=== PATIENT | male | born 1940 | race Caucasian/White ===

== ENCOUNTER → 2017-04-20 07:49 | Outpatient (CLI) | payer MEDICARE, OTHER, SELFPAY ==
[2017-04-20 08:52] LABS: AST(SGOT) 66 U/L (15-37); Alanine Aminotransfer ALT/SGPT 118 U/L (16-61); Albumin, Serum 3.7 g/dL (3.2-5.0); Alkaline Phosphatase 77 U/L (45-117); Bilirubin, Direct 0.22 mg/dL (0.00-0.30); Globulin 4.1 g/dL (2.2-4.2); Protein, Total 7.8 g/dL (6.4-8.2)
== END ==
PROVIDERS: Family Provider Family Medicine; PCP Family Medicine; Visit Provider Internal Medicine Cardiovascular Disease
DX: I25.10 Atherosclerotic heart disease of native coronary artery without angina pectoris (principal); I21.3 ST elevation (STEMI) myocardial infarction of unspecified site; I10 Essential (primary) hypertension; Z95.5 Presence of coronary angioplasty implant and graft
CPT/HCPCS: 36415; 80076

== ENCOUNTER → 2017-05-03 06:10 | Outpatient (CLI) | payer MEDICARE, OTHER, SELFPAY ==
--- NOTE | 2017-05-03 13:00 | STRESSREP ---
Stress Test Report Exercise myocardial perfusion stress test. 76-year-old man with a history of known coronary artery disease status post angioplasty and stenting in February 2017. Stress protocol: Sinus rhythm with a rate of 60 bpm. Right bundle branch block noted. Resting blood pressure is 144/92 mmHg. The patient exercised according to the regular [place] protocol total duration of 4 minutes and 6 seconds attaining 169 bpm which was 117% of maximum predicted heart rate the maximum workload was 5.9 metabolic equivalents. The patient maintained sinus rhythm with a right bundle branch block throughout the recording. At rest there were no ST or T-wave changes noticed ischemia and at peak exercise no ST or T-wave changes were noted suggest ischemia. Resting blood pressure was 144/92 with a peak blood pressure 172/90 mmHg. No clinical angina was noted the patient was noted to have audible wheezes at the end of exercise. Cardial perfusion protocol. 11.1 mCi of technetium 99m sestamibi was injected at rest. The patient then exercised according to the [place] protocol for 4 minutes and 6 seconds attaining 117% of the maximum predicted heart rate and a workload of 5.9 metabolic equivalents. At peak exercise 33.1 mCi of technetium 99m sestamibi was injected. Stress images were obtained. Stress and resting images were reconstructed and compared in the short axis vertical long and horizontal long axis. Gated images were also noted. Perfusion SPECT analysis. Review of the images on the stress demonstrate normal uptake of tracer noted in the septum anterior wall and lateral wall. There is a defect involving the basal to mid inferior wall as well as reduced perfusion involving the mid to inferior apical wall. On the resting images both these defects and reduction of perfusion persist suggesting a previous inferior myocardial infarction with no evidence of ischemia. A small amount of jarad-infarct ischemia can however not be completely excluded. Gated SPECT analysis. Gated ejection fraction is noted to be 61%. Conclusion: Exercise myocardial perfusion stress test with evidence of previous inferior infarct at a low workload No significant ischemia noted. Small amount of jarad-infarct ischemia cannot be completely excluded. Preserved ejection fraction.
== END ==
PROVIDERS: Family Provider Family Medicine; PCP Family Medicine; Visit Provider Internal Medicine Interventional Cardiology
DX: I25.10 Atherosclerotic heart disease of native coronary artery without angina pectoris (principal)
CPT/HCPCS: 78452; 93017; A9500; A4216

== ENCOUNTER → 2017-06-02 07:15 | Outpatient (CLI) | payer MEDICARE, OTHER, SELFPAY ==
[2017-06-02 08:49] LABS: AST(SGOT) 61 U/L (15-37); Alanine Aminotransfer ALT/SGPT 81 U/L (16-61); Albumin, Serum 3.6 g/dL (3.2-5.0); Alkaline Phosphatase 63 U/L (45-117); Bilirubin, Direct 0.31 mg/dL (0.00-0.30); Protein, Total 7.6 g/dL (6.4-8.2)
== END ==
PROVIDERS: Family Provider Family Medicine; PCP Family Medicine; Visit Provider Internal Medicine Cardiovascular Disease
DX: I10 Essential (primary) hypertension (principal); I25.5 Ischemic cardiomyopathy; I25.10 Atherosclerotic heart disease of native coronary artery without angina pectoris; D69.6 Thrombocytopenia, unspecified; I21.3 ST elevation (STEMI) myocardial infarction of unspecified site; I47.2 Ventricular tachycardia; Z95.5 Presence of coronary angioplasty implant and graft
CPT/HCPCS: 36415; 80076

== ENCOUNTER → 2017-08-23 14:15 | Outpatient (CLI) | payer MEDICARE, OTHER, SELFPAY ==
[2017-08-23 16:26] LABS: ALB/GLOB Ratio 0.9 RATIO (0.9-2.4); AST(SGOT) 35 U/L (15-37); Alanine Aminotransfer ALT/SGPT 53 U/L (16-61); Albumin, Serum 3.5 g/dL (3.2-5.0); Alkaline Phosphatase 77 U/L (45-117); Anion Gap 7 (5-15); BUN 17 mg/dL (7-18); BUN/Creat Ratio 12.7 RATIO (10-20); Calcium,Total 8.7 mg/dL (8.5-10.1); Chloride 104 mmol/L (98-107); Creatinine, Serum 1.34 mg/dL (0.70-1.30); EST Glomerular Filtration Rate 55 mL/min (>60); Est Glom Filt Rate - Afr Amer 67 mL/min (>60); Ferritin 60 ng/mL (26-388); GGTP 22 U/L (15-85); Globulin 3.7 g/dL (2.2-4.2); Glucose 119 mg/dL (74-106); Iron 71 ug/dL (65-175); Potassium 4.3 mmol/L (3.5-5.1); Protein, Total 7.2 g/dL (6.4-8.2); Sodium Level 142 mmol/L (136-145)
[2017-08-25 11:19] LABS: Hep C Antibodies >11.0 s/co ratio (0.0-0.9)
== END ==
PROVIDERS: Family Provider Family Medicine; PCP Family Medicine; Visit Provider Family Medicine
DX: I10 Essential (primary) hypertension (principal); R79.89 Other specified abnormal findings of blood chemistry
CPT/HCPCS: 36415; 80053; 82728; 82977; 83540; 86803

== ENCOUNTER → 2017-08-29 11:22 | Outpatient (CLI) | payer MEDICARE, OTHER, SELFPAY ==
[2017-08-31 11:02] LABS: HCV log 10 6.425 (.)
== END ==
PROVIDERS: Family Provider Family Medicine; PCP Family Medicine; Visit Provider Family Medicine
DX: B18.2 Chronic viral hepatitis C (principal)
CPT/HCPCS: 36415; 87522

== ENCOUNTER → 2017-09-05 06:08 | Outpatient (CLI) | payer MEDICARE, OTHER, SELFPAY ==
[2017-09-05 08:32] LABS: AST(SGOT) 35 U/L (15-37); Alanine Aminotransfer ALT/SGPT 46 U/L (16-61); Albumin, Serum 3.5 g/dL (3.2-5.0); Alkaline Phosphatase 75 U/L (45-117); Bilirubin, Direct 0.13 mg/dL (0.00-0.30); Globulin 3.8 g/dL (2.2-4.2); Protein, Total 7.3 g/dL (6.4-8.2)
[2017-09-10 03:06] LABS: Comment 2b (.)
[2017-09-11 09:05] LABS: AFP, Tumor Marker 3.8 ng/mL (0.0-8.3); HEPATITIS B SURFACE AG Negative (Negative); Hepatitis C Genotype 2b
== END ==
PROVIDERS: Family Provider Family Medicine; PCP Family Medicine; Visit Provider Internal Medicine Gastroenterology
DX: B18.2 Chronic viral hepatitis C (principal)
CPT/HCPCS: 36415; 80076; 82105; 87340; 87902

== ENCOUNTER → 2017-09-08 08:57 | Outpatient (CLI) | payer MEDICARE, OTHER, SELFPAY ==
--- NOTE | 2017-09-08 09:06 | US_ITS ---
STUDY: ABDOMINAL ULTRASOUND - RIGHT UPPER QUADRANT REASON FOR VISIT: Male, 76 years old. HEP C TECHNIQUE: Ultrasound evaluation of the right upper quadrant was performed with real-time and static porter-scale imaging. TECHNICAL QUALITY: Adequate. COMPARISON: None. FINDINGS: Liver: The liver measures 14.5 cm. There is a heterogeneous echogenicity of the liver. The bile ducts are within normal limits. There is hepatic color flow. The direction of portal flow is hepatopetal. There is no demonstrated mass lesion. Gallbladder: Normal distended gallbladder. The gallbladder wall measures 3 mm. There is a negative sonographic Farnsworth's sign. There is no pericholecystic fluid. There are no gallstones. Common Bile Duct (C.B.D.): The common bile duct measures 4.3 mm. Pancreas: Normal size of the head, body and tail of the pancreas. There is normal echogenicity of the pancreas. There is no demonstrated pancreatic mass or cyst. Right Kidney: Normal size of the right kidney. The right kidney measures 9.5x 4.6 x 5.3 cm. Normal renal cortex. The right cortex measures 1.2 cm. There is no demonstrated renal mass or cyst. There is no right hydronephrosis. US/Liver IMPRESSION: The liver appears heterogeneous and this is likely related to the patient's known hepatitis. Electronically Signed: Kory Soria MD at 21:15 EDT , Service support ,
== END ==
PROVIDERS: Family Provider Family Medicine; PCP Family Medicine; Visit Provider Internal Medicine Gastroenterology
DX: B19.20 Unspecified viral hepatitis C without hepatic coma (principal)
CPT/HCPCS: 76705

== ENCOUNTER → 2017-12-16 07:04 | Outpatient (CLI) | payer MEDICARE, OTHER, SELFPAY ==
[2017-12-16 09:14] LABS: AST(SGOT) 20 U/L (15-37); Alanine Aminotransfer ALT/SGPT 22 U/L (16-61); Albumin, Serum 3.6 g/dL (3.2-5.0); Alkaline Phosphatase 58 U/L (45-117); Bilirubin, Direct 0.16 mg/dL (0.00-0.30); Cholesterol 186 mg/dL (200); Globulin 3.9 g/dL (2.2-4.2); High Density Lipoprotein 60 mg/dL; Protein, Total 7.5 g/dL (6.4-8.2); Triglycerides 77 mg/dL; Very Low Density Lipoprotein 15 mg/dL (5-40)
== END ==
PROVIDERS: Family Provider Family Medicine; PCP Family Medicine; Referring Provider Nurse Practitioner Family; Visit Provider Nurse Practitioner Family
DX: E78.5 Hyperlipidemia, unspecified (principal); I25.10 Atherosclerotic heart disease of native coronary artery without angina pectoris
CPT/HCPCS: 36415; 80061; 80076

== ENCOUNTER → 2018-02-22 13:30 | Outpatient (CLI) | payer MEDICARE, OTHER, SELFPAY ==
[2018-02-22 14:32] LABS: Anion Gap 6 (5-15); BUN 15 mg/dL (7-18); BUN/Creat Ratio 11.7 RATIO (10-20); Calcium,Total 8.8 mg/dL (8.5-10.1); Chloride 104 mmol/L (98-107); Creatinine, Serum 1.28 mg/dL (0.70-1.30); EST Glomerular Filtration Rate 58 mL/min (>60); Est Glom Filt Rate - Afr Amer 70 mL/min (>60); Glucose 149 mg/dL (74-106); Potassium 4.4 mmol/L (3.5-5.1); Sodium Level 139 mmol/L (136-145)
== END ==
PROVIDERS: Family Provider Family Medicine; PCP Family Medicine; Referring Provider Family Medicine; Visit Provider Family Medicine
DX: I25.10 Atherosclerotic heart disease of native coronary artery without angina pectoris (principal)
CPT/HCPCS: 36415; 80048

== ENCOUNTER → 2018-05-04 07:04 | Outpatient (CLI) | payer MEDICARE, OTHER, SELFPAY ==
[2018-05-06 17:08] LABS: HCV Quant. RNA PCR HCV Not Detected IU/mL (.)
== END ==
PROVIDERS: Family Provider Family Medicine; PCP Family Medicine; Referring Provider Internal Medicine Gastroenterology; Visit Provider Internal Medicine Gastroenterology
DX: B19.20 Unspecified viral hepatitis C without hepatic coma (principal)
CPT/HCPCS: 36415; 87522

== ENCOUNTER → 2018-06-13 | Outpatient (CLI) | payer MEDICARE, OTHER, SELFPAY ==
[2018-06-11 09:38] VITALS: BMI 24.8
[2018-06-13 09:31] LABS: AST(SGOT) 27 U/L (15-37); Alanine Aminotransfer ALT/SGPT 30 U/L (16-61); Albumin, Serum 3.8 g/dL (3.2-5.0); Alkaline Phosphatase 74 U/L (45-117); Bilirubin, Direct 0.18 mg/dL (0.00-0.30); Cholesterol 98 mg/dL (200); Globulin 3.3 g/dL (2.2-4.2); High Density Lipoprotein 51 mg/dL; Protein, Total 7.1 g/dL (6.4-8.2); Triglycerides 88 mg/dL; Very Low Density Lipoprotein 18 mg/dL (5-40)
== END | disposition home or self-care (01) ==
LOC: LAB 07:06
PROVIDERS: Family Provider Family Medicine; PCP Family Medicine; Referring Provider Internal Medicine Cardiovascular Disease; Visit Provider Internal Medicine Cardiovascular Disease
DX: I25.10 Atherosclerotic heart disease of native coronary artery without angina pectoris (principal); E78.00 Pure hypercholesterolemia, unspecified
CPT/HCPCS: 36415; 80061; 80076

== ENCOUNTER 2018-07-16 08:59 | Emergency (ER) | payer MEDICARE, OTHER, SELFPAY ==
[2018-06-11 09:38] VITALS: BMI 24.8
[2018-07-16 09:00] VITALS: BP 153/90; PULSE 77; RESP 16; TEMP 36.8; O2SAT 94; BMI 23.5
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
--- NOTE | 2018-07-16 09:30 | RAD_ITS ---
STUDY: X-RAY CHEST REASON FOR EXAM: Male, 77 years old. Left lower posterior rib pain following a fall. TECHNIQUE: PA and lateral views of the chest. COMPARISON: Comparison is made with prior study dated February 18, 2017. FINDINGS: Stable mild increased markings at the lung bases suggestive of mild bibasilar scarring. Hyperinflation. There is no demonstrated pleural abnormality. Normal size heart. Normal mediastinum and jayesh. Normal visualized pulmonary arteries. There is atherosclerotic calcification of the aortic arch with tortuosity. There are diffuse degenerative changes of the visualized thoracic spine. There is degenerative osteoarthritis of the bilateral shoulders. There is no demonstrated abnormality of the visualized soft tissue structures of the upper abdomen. RAD/Chest PA and Lateral IMPRESSION: Hyperinflation. Mild stable increased linear markings at the lung bases suggestive of bibasilar scarring. Electronically Signed: Oleg Leon, at 10:25 EDT , Service support ,
--- NOTE | 2018-07-16 11:15 | ED.DEP ---
ED Disposition - Plan for ED Patient: Disposition: Home or Assisted Living Instructions: ED Contusion Back Prescriptions: Hydrocodone Bitart/Apap 5-325 [[place] 5MG-325MG] 1 tab PO Q4H PRN PRN 5 Days #20 tab PRN Reason: Pain Referrals: Doe Suárez MD [Primary Care Provider] - 1 Week if not improving Additional Instructions: Ice to left posterior rib cage with the bruises. [place] for pain.
--- NOTE | 2018-07-16 11:18 | DCINST.ED_ITS ---
ED Disposition - Plan for ED Patient: Disposition: Home or Assisted Living Instructions: ED Contusion Back Prescriptions: Hydrocodone Bitart/Apap 5-325 [[place] 5MG-325MG] 1 tab PO Q4H PRN PRN 5 Days #20 tab PRN Reason: Pain Referrals: Doe Suárez MD [Primary Care Provider] - 1 Week if not improving Additional Instructions: Ice to left posterior rib cage with the bruises. [place] for pain.
== END 2018-07-16 11:25 | disposition home or self-care (01) ==
PROVIDERS: Emergency Provider Emergency Medicine; Family Provider Family Medicine; PCP Family Medicine
DX: S20.222A Contusion of left back wall of thorax, initial encounter (principal); S39.92XA Unspecified injury of lower back, initial encounter; S30.1XXA Contusion of abdominal wall, initial encounter; M85.88 Other specified disorders of bone density and structure, other site; V19.9XXA Pedal cyclist (driver) (passenger) injured in unspecified traffic accident, initial encounter; Y93.9 Activity, unspecified; Y92.9 Unspecified place or not applicable; I25.10 Atherosclerotic heart disease of native coronary artery without angina pectoris; I25.2 Old myocardial infarction; I10 Essential (primary) hypertension; Z95.5 Presence of coronary angioplasty implant and graft; Z79.02 Long term (current) use of antithrombotics/antiplatelets; Z79.82 Long term (current) use of aspirin; Z79.899 Other long term (current) drug therapy; Z87.891 Personal history of nicotine dependence
CPT/HCPCS: 71046; 74177; 99283; Q9967; A4216

== ENCOUNTER 2018-07-18 04:40 | Emergency (ER) | payer MEDICARE, OTHER, SELFPAY ==
[2018-07-18 04:41] VITALS: BP 179/92; PULSE 70; RESP 18; TEMP 36.7; O2SAT 94; BMI 24.7
[2018-07-18 04:45] VITALS: RESP 18
[2018-07-18] MEDS: morphine 8 MG/ML Syringe IM (05:16)
--- NOTE | 2018-07-18 05:20 | ED.DEP ---
ED Disposition - Plan for ED Patient: Instructions: ED Contusion Back Prescriptions: Oxycodone HCl/Acetaminophen [Percocet 5/325] 1 tab PO Q6H PRN PRN 3 Days #12 tab PRN Reason: Pain Ondansetron [Zofran Odt] 4 mg PO Q8H PRN PRN #10 tab PRN Reason: Nausea Referrals: Doe Suárez MD [Primary Care Provider] -
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
[2018-07-18 06:00] VITALS: BP 136/86; PULSE 68; RESP 16; O2SAT 95
== END 2018-07-18 06:01 | disposition home or self-care (01) ==
LOC: ED 04:59
PROVIDERS: Emergency Provider Emergency Medicine; Family Provider Family Medicine; PCP Family Medicine
DX: S30.0XXD Contusion of lower back and pelvis, subsequent encounter (principal); I25.10 Atherosclerotic heart disease of native coronary artery without angina pectoris; I25.2 Old myocardial infarction; I10 Essential (primary) hypertension; E78.00 Pure hypercholesterolemia, unspecified; Z79.82 Long term (current) use of aspirin; Z79.899 Other long term (current) drug therapy; V19.9XXD Pedal cyclist (driver) (passenger) injured in unspecified traffic accident, subsequent encounter
CPT/HCPCS: 96372; 99282

== ENCOUNTER → 2018-08-24 | Outpatient (CLI) | payer MEDICARE, OTHER, SELFPAY ==
[2018-08-24 08:09] LABS: Mean Corp Hgb Conc 33.3 g/gl (32-36); Mean Corpuscular Volume 92.9 fL (80-94); Mean Platelet Vol. 10.4 fl (6.2-12.0); Platelet Count 111 K/mm3 (150-450); RBC Distribution Width CV 12.9 % (11.6-14.6); Red Blood Count 4.52 M/mm3 (4.6-6.2); Scan Indicated on CBC? Y/N NO; White Blood Count 4.1 K/mm3 (4.4-11.0)
[2018-08-24 08:48] LABS: AST(SGOT) 27 U/L (15-37); Alanine Aminotransfer ALT/SGPT 30 U/L (16-61); Albumin, Serum 3.5 g/dL (3.2-5.0); Alkaline Phosphatase 76 U/L (45-117); Anion Gap 7 (5-15); BUN 14 mg/dL (7-18); BUN/Creat Ratio 11.4 RATIO (10-20); Calcium,Total 8.6 mg/dL (8.5-10.1); Chloride 105 mmol/L (98-107); Cholesterol 96 mg/dL (200); Creatinine, Serum 1.23 mg/dL (0.70-1.30); EST Glomerular Filtration Rate 61 mL/min (>60); Est Glom Filt Rate - Afr Amer 73 mL/min (>60); Globulin 3.5 g/dL (2.2-4.2); Glucose 91 mg/dL (74-106); High Density Lipoprotein 55 mg/dL; Potassium 4.7 mmol/L (3.5-5.1); Sodium Level 139 mmol/L (136-145); Triglycerides 53 mg/dL; Very Low Density Lipoprotein 11 mg/dL (5-40)
[2018-08-24 11:18] LABS: PSA,Total - Annual Screen 3.42 ng/mL (0.00-4.00)
== END | disposition home or self-care (01) ==
PROVIDERS: Family Provider Family Medicine; PCP Family Medicine; Referring Provider Family Medicine; Visit Provider Family Medicine
DX: I25.10 Atherosclerotic heart disease of native coronary artery without angina pectoris (principal); N40.0 Benign prostatic hyperplasia without lower urinary tract symptoms; Z12.5 Encounter for screening for malignant neoplasm of prostate
CPT/HCPCS: 36415; 80053; 80061; 84153; 85027; G0103

== ENCOUNTER → 2018-12-15 | Outpatient (CLI) | payer MEDICARE, OTHER, SELFPAY ==
[2018-10-17 13:26] VITALS: BMI 24.5
[2018-12-15 08:34] LABS: AST(SGOT) 27 U/L (15-37); Alanine Aminotransfer ALT/SGPT 30 U/L (16-61); Albumin, Serum 3.7 g/dL (3.2-5.0); Alkaline Phosphatase 69 U/L (45-117); Bilirubin, Direct 0.29 mg/dL (0.00-0.30); Cholesterol 91 mg/dL (200); Globulin 3.2 g/dL (2.2-4.2); High Density Lipoprotein 55 mg/dL; Protein, Total 6.9 g/dL (6.4-8.2); Triglycerides 60 mg/dL; Very Low Density Lipoprotein 12 mg/dL (5-40)
== END | disposition home or self-care (01) ==
PROVIDERS: Family Provider Family Medicine; PCP Family Medicine; Referring Provider Internal Medicine Cardiovascular Disease; Visit Provider Internal Medicine Cardiovascular Disease
DX: E78.00 Pure hypercholesterolemia, unspecified (principal)
CPT/HCPCS: 36415; 80061; 80076

== ENCOUNTER → 2019-06-26 06:51 | Outpatient (CLI) | payer MEDICARE, OTHER, SELFPAY ==
[2018-12-17 09:38] VITALS: BMI 24.7
[2019-06-26 08:39] LABS: AST(SGOT) 25 U/L (15-37); Alanine Aminotransfer ALT/SGPT 37 U/L (16-61); Albumin, Serum 3.9 g/dL (3.2-5.0); Alkaline Phosphatase 76 U/L (45-117); Bilirubin, Direct 0.29 mg/dL (0.00-0.30); Cholesterol 100 mg/dL (200); Globulin 3.6 g/dL (2.2-4.2); High Density Lipoprotein 53 mg/dL; Protein, Total 7.5 g/dL (6.4-8.2); Triglycerides 82 mg/dL; Very Low Density Lipoprotein 16 mg/dL (5-40)
== END ==
PROVIDERS: PCP Family Medicine; Referring Provider Internal Medicine Cardiovascular Disease; Visit Provider Internal Medicine Cardiovascular Disease
DX: E78.00 Pure hypercholesterolemia, unspecified (principal)
CPT/HCPCS: 36415; 80061; 80076

== ENCOUNTER → 2019-08-26 09:03 | Outpatient (CLI) | payer MEDICARE, OTHER, SELFPAY ==
[2019-07-08 13:46] VITALS: BMI 24.8
[2019-08-26 10:10] LABS: Hematocrit 43.5 % (40-54); Hemoglobin 14.3 g/dL (13.0-16.5); Mean Corp Hgb Conc 32.9 g/dL (32-36); Mean Corpuscular Hgb 32.6 pg (27.0-32.0); Mean Corpuscular Volume 99.1 fL (80-94); Mean Platelet Vol. 10.4 fl (6.2-12.0); Platelet Count 111 K/mm3 (150-450); RBC Distribution Width CV 12.6 % (11.6-14.6); RBC Distribution Width SD 45.3 fl (35.1-43.9); Red Blood Count 4.39 M/mm3 (4.6-6.2); White Blood Count 4.7 K/mm3 (4.4-11.0)
[2019-08-26 10:29] LABS: Anion Gap 4 (5-15); BUN 13 mg/dL (7-18); BUN/Creat Ratio 10.4 RATIO (10-20); Calcium,Total 8.8 mg/dL (8.5-10.1); Chloride 105 mmol/L (98-107); Creatinine, Serum 1.25 mg/dL (0.70-1.30); EST Glomerular Filtration Rate 59 mL/min (>60); Est Glom Filt Rate - Afr Amer 72 mL/min (>60); Glucose 120 mg/dL (74-106); Potassium 4.5 mmol/L (3.5-5.1); Sodium Level 137 mmol/L (136-145)
== END ==
PROVIDERS: PCP Family Medicine; Referring Provider Family Medicine; Visit Provider Family Medicine
DX: I25.10 Atherosclerotic heart disease of native coronary artery without angina pectoris (principal); D69.6 Thrombocytopenia, unspecified
CPT/HCPCS: 36415; 80048; 85027

== ENCOUNTER → 2020-03-05 07:41 | Outpatient (CLI) | payer MEDICARE, OTHER, SELFPAY ==
[2019-07-08 13:46] VITALS: BMI 24.8
[2020-03-05 08:14] LABS: Hematocrit 47.8 % (40-54); Hemoglobin 15.7 g/dL (13.0-16.5); Mean Corp Hgb Conc 32.8 g/dL (32-36); Mean Corpuscular Hgb 31.7 pg (27.0-32.0); Mean Corpuscular Volume 96.4 fL (80-94); Mean Platelet Vol. 10.4 fl (6.2-12.0); Platelet Count 111 K/mm3 (150-450); RBC Distribution Width CV 12.5 % (11.6-14.6); RBC Distribution Width SD 44.5 fl (35.1-43.9); Red Blood Count 4.96 M/mm3 (4.6-6.2); White Blood Count 6.3 K/mm3 (4.4-11.0)
[2020-03-05 08:35] LABS: ALB/GLOB Ratio 1.1 RATIO (0.9-2.4); AST(SGOT) 22 U/L (15-37); Alanine Aminotransfer ALT/SGPT 31 U/L (16-61); Albumin, Serum 3.8 g/dL (3.2-5.0); Alkaline Phosphatase 59 U/L (45-117); Anion Gap 2 (5-15); BUN 12 mg/dL (7-18); BUN/Creat Ratio 9.8 RATIO (10-20); Bilirubin, Direct 0.28 mg/dL (0.00-0.30); Calcium,Total 8.9 mg/dL (8.5-10.1); Chloride 106 mmol/L (98-107); Cholesterol 101 mg/dL (200); Creatinine, Serum 1.23 mg/dL (0.70-1.30); EST Glomerular Filtration Rate 60 mL/min (>60); Est Glom Filt Rate - Afr Amer 73 mL/min (>60); Globulin 3.5 g/dL (2.2-4.2); Glucose 99 mg/dL (74-106); High Density Lipoprotein 57 mg/dL; Potassium 4.5 mmol/L (3.5-5.1); Protein, Total 7.3 g/dL (6.4-8.2); Sodium Level 139 mmol/L (136-145); Triglycerides 77 mg/dL; Very Low Density Lipoprotein 15 mg/dL (5-40)
[2020-03-05 08:41] LABS: AST(SGOT) 21 U/L (15-37); Alanine Aminotransfer ALT/SGPT 32 U/L (16-61); Albumin, Serum 3.8 g/dL (3.2-5.0); Alkaline Phosphatase 64 U/L (45-117); Bilirubin, Direct 0.26 mg/dL (0.00-0.30); Globulin 3.4 g/dL (2.2-4.2); Protein, Total 7.2 g/dL (6.4-8.2)
== END ==
PROVIDERS: PCP Family Medicine; Referring Provider Internal Medicine Cardiovascular Disease; Visit Provider Internal Medicine Cardiovascular Disease
DX: I25.10 Atherosclerotic heart disease of native coronary artery without angina pectoris (principal); D69.6 Thrombocytopenia, unspecified; E78.00 Pure hypercholesterolemia, unspecified
CPT/HCPCS: 36415; 80053; 80061; 80076; 82248; 85027

== ENCOUNTER → 2020-09-03 07:40 | Outpatient (CLI) | payer MEDICARE, OTHER, SELFPAY ==
[2020-03-11 14:39] VITALS: BMI 25.5
[2020-09-03 08:44] LABS: AST(SGOT) 28 U/L (15-37); Alanine Aminotransfer ALT/SGPT 34 U/L (16-61); Albumin, Serum 3.9 g/dL (3.2-5.0); Alkaline Phosphatase 70 U/L (45-117); Bilirubin, Direct 0.31 mg/dL (0.00-0.30); Cholesterol 103 mg/dL (200); Globulin 3.3 g/dL (2.2-4.2); High Density Lipoprotein 59 mg/dL; Protein, Total 7.2 g/dL (6.4-8.2); Triglycerides 43 mg/dL; Very Low Density Lipoprotein 9 mg/dL (5-40)
== END ==
PROVIDERS: PCP Family Medicine; Referring Provider Internal Medicine Cardiovascular Disease; Visit Provider Internal Medicine Cardiovascular Disease
DX: E78.00 Pure hypercholesterolemia, unspecified (principal)
CPT/HCPCS: 36415; 80061; 80076

== ENCOUNTER → 2021-02-22 06:51 | Outpatient (CLI) | payer MEDICARE, OTHER, SELFPAY ==
[2021-02-22 08:09] LABS: AST(SGOT) 25 U/L (15-37); Alanine Aminotransfer ALT/SGPT 33 U/L (16-61); Albumin, Serum 3.6 g/dL (3.2-5.0); Alkaline Phosphatase 65 U/L (45-117); Bilirubin, Direct 0.28 mg/dL (0.00-0.30); Cholesterol 113 mg/dL (200); Globulin 3.8 g/dL (2.2-4.2); High Density Lipoprotein 60 mg/dL; Protein, Total 7.4 g/dL (6.4-8.2); Triglycerides 69 mg/dL; Very Low Density Lipoprotein 14 mg/dL (5-40)
== END ==
PROVIDERS: PCP Family Medicine; Referring Provider Internal Medicine Cardiovascular Disease; Visit Provider Internal Medicine Cardiovascular Disease
DX: E78.00 Pure hypercholesterolemia, unspecified (principal)
CPT/HCPCS: 36415; 80061; 80076

== ENCOUNTER → 2021-08-31 | Outpatient (CLI) | payer MEDICARE, OTHER, SELFPAY ==
[2021-08-31 08:11] LABS: AST(SGOT) 54 U/L (15-37); Alanine Aminotransfer ALT/SGPT 48 U/L (16-61); Albumin, Serum 3.6 g/dL (3.2-5.0); Alkaline Phosphatase 64 U/L (45-117); Bilirubin, Direct 0.31 mg/dL (0.00-0.30); Cholesterol 121 mg/dL (200); Globulin 3.3 g/dL (2.2-4.2); High Density Lipoprotein 47 mg/dL; Protein, Total 6.9 g/dL (6.4-8.2); Triglycerides 75 mg/dL; Very Low Density Lipoprotein 15 mg/dL (5-40)
== END | disposition home or self-care (01) ==
PROVIDERS: PCP Family Medicine; Referring Provider Internal Medicine Cardiovascular Disease; Visit Provider Internal Medicine Cardiovascular Disease
DX: E78.00 Pure hypercholesterolemia, unspecified (principal)
CPT/HCPCS: 36415; 80061; 80076

== ENCOUNTER → 2021-10-28 | Outpatient (CLI) | payer MEDICARE, OTHER, SELFPAY ==
--- NOTE | 2021-10-28 11:35 | RAD_ITS ---
STUDY: X-RAY - ACUTE ABDOMINAL SERIES REASON FOR EXAM: Male, 80 years old. Abd pain TECHNIQUE: Single view of the chest. Supine, and erect view(s) of the abdomen were obtained. 5 views are provided. COMPARISON: CT abdomen and pelvis July 16, 2018 FINDINGS: The lungs are clear and expanded. There is calcification of the splenic vessels. Normal size heart. Normal mediastinum and jayesh. Normal visualized pulmonary arteries. There is atherosclerotic calcification of the aortic arch with tortuosity. There is a nonspecific air-fluid level in the upright view within the stomach. There is mild to moderate stool within the colon. There is no significant evidence of small bowel distention. The soft tissue structures of the abdomen and pelvis are unremarkable. There are diffuse degenerative changes of the visualized lumbar spine. There is mild levoscoliosis. RAD/Acute Abdomen Inc Chest IMPRESSION: Nonspecific bowel gas pattern. No visualized acute focal infiltrate. 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 Electronically Signed: Deborah Rodarte MD at 4:35 EDT ,
[2021-10-28 15:07] LABS: Absolute Lymphocyte Count 0.85 X10^3/uL (0.83-4.51); Absolute Neutrophil Count 4.3 X10^3/uL (2.0-7.7); Basophil# 0.06 X10^3/uL; Eosinophil# 0.08 X10^3/uL; Eosinophils% 1.3 % (0-5); Hematocrit 50.9 % (40-54); Hemoglobin 16.4 g/dL (13.0-16.5); Lymphocyte # 0.85 X10^3/ul (0.83-4.51); Mean Corp Hgb Conc 32.2 g/dL (32-36); Mean Corpuscular Hgb 28.1 pg (27.0-32.0); Mean Corpuscular Volume 87.2 fL (80-94); Mean Platelet Vol. 11.6 fl (6.2-12.0); Monocyte# 0.75 X10^3/uL; Monocyte% 12.4 % (0-10); NRBC Flagged by Analyzer 0 % (0-5); Neutrophil # 4.28 X10^3/uL (2.7-7.7); Neutrophil % 70.8 % (47-70); Platelet Count 143 K/mm3 (150-450); RBC Distribution Width CV 13.7 % (11.6-14.6); RBC Distribution Width SD 43.3 fl (35.1-43.9); Red Blood Count 5.84 M/mm3 (4.6-6.2); White Blood Count 6.1 K/mm3 (4.4-11.0)
[2021-10-28 15:08] LABS: Erythrocyte Sedimentation Rate 6 mm/hr (0-20)
[2021-10-28 15:21] LABS: Vitamin B12 568 pg/mL (211-911)
[2021-10-28 15:35] LABS: ALB/GLOB Ratio 0.9 RATIO (0.9-2.4); AST(SGOT) 71 U/L (15-37); Alanine Aminotransfer ALT/SGPT 34 U/L (16-61); Albumin, Serum 3.5 g/dL (3.2-5.0); Alkaline Phosphatase 86 U/L (45-117); Anion Gap 7 (5-15); BUN 10 mg/dL (7-18); BUN/Creat Ratio 8.3 RATIO (10-20); Chloride 98 mmol/L (98-107); EST Glomerular Filtration Rate 62 mL/min (>60); Est Glom Filt Rate - Afr Amer 75 mL/min (>60); Globulin 3.7 g/dL (2.2-4.2); Glucose 123 mg/dL (74-106); Potassium 4.5 mmol/L (3.5-5.1); Protein, Total 7.2 g/dL (6.4-8.2); Sodium Level 132 mmol/L (136-145); Thyroid Stim Hormone (TSH) 0.73 uIU/mL (0.358-3.74)
== END | disposition home or self-care (01) ==
LOC: MTLAB 11:33
PROVIDERS: PCP Family Medicine; Referring Provider Family Medicine; Visit Provider Family Medicine
DX: R10.9 Unspecified abdominal pain (principal); R26.81 Unsteadiness on feet
CPT/HCPCS: 36415; 74022; 80053; 82607; 84443; 85025; 85652

== ENCOUNTER 2021-11-10 14:46 | Inpatient (IN) | payer MEDICARE, OTHER, SELFPAY ==
[2021-11-10 14:47] VITALS: BP 158/98; PULSE 67; RESP 18; TEMP 36.6; O2SAT 96; BMI 25.8
--- NOTE | 2021-11-10 16:18 | CT_ITS ---
STUDY: CT ABDOMEN AND PELVIS WITH CONTRAST REASON FOR EXAM: Male, 80 years old. pain RADIATION DOSAGE (If Supplied By Facility): CTDIvol = ( 13.81 ) mGy, DLP = ( 1295.09 ) mGycm TECHNIQUE: Transaxial images were obtained from the dome of the diaphragm to the symphysis pubis without oral contrast. IV 100mL Isovue-300 was administered. Sagittal and coronal images were reconstructed. Individualized dose optimization techniques were used for this CT. COMPARISON: 07/16/2018 FINDINGS: Mild nonspecific interstitial thickening at the lung bases. The visualized portions of the heart are within normal limits. The liver is normal size and demonstrates generalized fatty filtration however there is a large poorly defined solid mass in left lobe ascending into the claudia hepatis occluding the portal vein association with cavernous transformation. The bile ducts not dilated. There are also small hypoattenuated nodules in the left and right lobe which are too small to characterize gallbladder not visualized secondary to prior cholecystectomy.. Spleen is mildly enlarged.. Normal pancreas. There is fluid in the right subphrenic space extending into the Yin''s pouch and paracolic gutter. There is also a small amount of ascites in the left upper abdomen. There is a large amount of ascites within the lower abdomen and pelvis as well as mild diffuse enteric edema. Normal bilateral adrenal glands. Normal right kidney. Normal left kidney. Thickening of the [place]ley of stomach and narrowing of the lumen possibly due to nonspecific gastritis.. Mild ileus with diffuse fecal retention in the colon. No evidence for acute appendicitis.. Atherosclerotic changes of the aorta without evidence for aneurysm. Normal inferior vena cava. Normal retroperitoneum. Incompletely distended thick-walled bladder.. Nonspecific enlargement of the prostate. Normal abdominal wall. Lumbar spine demonstrates degenerative changes Degenerative changes of the sacroiliac joints. CT/Abdomen/Pelvis W IV Cont ONLY IMPRESSION: Diffuse hepatocellular disease and splenomegaly. Since prior study there has been interval development of a poorly defined large mass in left lobe of liver extending into the claudia hepatis occluding the portal vein with associated cavernous transformation suspicious for hepatoma. There are other tiny hypoattenuated densities possibly cysts which are unchanged since prior study. There is also associated mild diffuse mesenteric edema and moderate amount of ascites. MRI of the liver with and without contrast would be helpful for more definitive evaluation Findings which may be consistent with nonspecific gastritis and diffuse mild ileus with fecal retention in the colon. Electronically Signed: Bruce Cleary MD at 17:30 EDT ,
--- NOTE | 2021-11-10 16:18 | EKG12_ITS ---
Test Reason : ABD PAIN Blood Pressure : / mmHG Vent. Rate : 083 BPM Atrial Rate : 083 BPM P-R Int : 166 ms QRS Dur : 132 ms QT Int : 394 ms P-R-T Axes : 045 109 018 degrees QTc Int : 462 ms Normal sinus rhythm Right bundle branch block Possible Lateral infarct (cited on or before 18-FEB-2017) Cannot rule out Inferior infarct (cited on or before 18-FEB-2017) Abnormal ECG Confirmed by CHRISTEL POLANCO, MEDINA ([id number]), magazine editor ESTHER MORENO ([id number]) on 11/12/2021 9:59:44 AM Referred By: DARNELL Confirmed By:COLLEEN KEARNEY MD
--- NOTE | 2021-11-10 16:19 | EX.ED.DYSGE1 ---
HPI History of Present Illness Chief Complaint: Abd Pain Informant: patient and family Narrative Narrative: Patient has been having abdominal pain and cramping for about a month. He felt he was constipated. He was on MiraLAX for about 2 weeks. It did increase his bowel movements but he still had symptoms. Last few days he has stopped MiraLAX. He feels more bloated and full. He has diffuse abdominal discomfort. He came in today because this was the first time that he felt nauseated when he ate. He has not vomited. He denies any fevers or chills. He did lose about 5 pounds from 1 office visit to the other but has not felt any major weight loss. He does have a history of BPH, high blood pressure and cholesterol. He is also had heart disease but is not on any blood thinners at this time. He was for about a year after his stent. He is not having chest pain or dyspnea. Nothing really makes his symptoms are notably better or worse. He has had umbilical hernia surgery but no other abdominal surgery. He has never had a colonoscopy. [facility] Medical History Atherosclerosis of coronary artery of [place] heart without angina pectoris Essential hypertension History of ST elevation myocardial infarction (STEMI) Ischemic cardiomyopathy Presence of stent in coronary artery (~02/18/17) Pure hypercholesterolemia STEMI (ST elevation myocardial infarction) Thrombocytopenia Wide-complex tachycardia Home Medications aspirin 81 mg tablet,delayed release 81 mg PO DAILY@0800 02/20/17 [Rx Last Taken Unknown] atorvastatin 40 mg tablet 40 mg PO QHS #90 tabs 09/20/21 [Rx Last Taken Unknown] carvedilol 3.125 mg tablet 3.125 mg PO BID #180 tabs 09/20/21 [Rx Last Taken Unknown] lisinopril 2.5 mg tablet 2.5 mg PO DAILY #90 tabs 09/20/21 [Rx Last Taken Unknown] finasteride 5 mg tablet 5 mg PO DAILY 11/10/21 [History Last Taken Unknown] prednisolone acetate 1 % eye drops,suspension 1 drop EACH EYE DAILY 11/10/21 [History Last Taken Unknown] Allergy/AdvReac Type Severity Reaction Status Date / Time No Known Allergies Allergy Verified 11/10/21 14:50 Family History Father Cancer Mother CVA (cerebral vascular accident) Brother Cancer Prostate Cancer Surgical History Presence of coronary angioplasty implant and graft (~02/18/17) Social History Smoking Status: Former smoker how long ago did patient quit smokin alcohol intake: current alcohol intake frequency: a few times a month Alcohol type: beer and wine substance use type: does not use caffeine: Yes Type: coffee Number of servings: 2 what type of physical activity do you participate in: none seatbelt use: always do you feel safe at home: Yes ROS ROS ED Constitutional Constitutional ED: Denies chills, fever(s) or subjective Eyes Eyes: Denies change in vision ENT ENT ED: Denies rhinorrhea or sore throat Cardiovascular Cardiovascular: Denies chest pain, palpitations or racing heartbeat Respiratory/Chest Respiratory/Chest: Denies cough or dyspnea Gastrointestinal Gastrointestinal: Reports abdominal pain, constipation and nausea; Denies diarrhea, melena or vomiting Genitourinary Genitourinary ED: Reports urinary frequency and other Details: Patient has some chronic intermittent frequency. Rare dysuria. But this is not new or different. He has not seen urology in some time. ; Denies dysuria or hematuria Musculoskeletal Musculoskeletal: Denies back pain Integumentary Denies rash Neurologic Neurologic: Denies weakness Endocrine Endocrinology: Denies polydipsia or polyuria Hematologic/Lymphatic Hematologic/Lymphatic: Denies easy bleeding or easy bruising Allergic/Immunologic Allergic/Immunologic ED: Denies urticaria EXAM Physical Exam Const Vital Signs: 11/10/21 14:47 Temperature 98 F Temperature Source Temporal Pulse Rate 67 Respiratory Rate 18 Blood Pressure 158/98 H Blood Pressure Mean 118 Pulse Ox 96 Oxygen Delivery Method Room Air Positive well nourished and well developed General Appearance ED: well developed; Negative for pallor HEENT Reports moist mucous membranes Eyes General Eye ED: Negative for scleral icterus Neck no JVD Chest Wall inspection of chest normal Resp normal respiratory effort and clear to auscultation bilaterally Cardio regular rate and regular rhythm GI GI Narrative: Bowel sounds do sound normal. But his abdomen does look a bit distended. He really has no notable tenderness. When I pressed very firmly in the right upper quadrant he felt a little bit of discomfort. But he really does not have any significant discomfort. Certainly no guarding or rebound. I do not feel any mass. He has a little bit of a ventral hernia but no herniation through his prior surgery. Back/Spine no CVA tenderness Extremity Extremity Narrative: Chronic hemosiderin changes but no edema. General Extremety ED: Negative for edema or tenderness General Extremity: Negative for edema Neuro Sensorium / Orientation: alert Psych mental status grossly normal Skin no rashes or lesions noted General Skin Exam: Negative for jaundice or pallor MDM MDM MDM Narrative Medical decision making narrative: We are calling the lab. We do not have his comprehensive metabolic panel back. It is still listed as received from 1600 and is currently 18: 19 Blood work showed some mildly low sodium. Total bili was up a little bit at 1.6. Lipase and other electrolytes were normal. CBC shows mild elevation in hemoglobin. Urine was normal. CT scan showed cyst hepatic mass. There is some ascites. There is also indication of some gastritis and a bit of an ileus. I had a long talk with patient and family. My concern is that this patient came in because he is now to the point he is not able to eat or drink. I think if I sent him home he is just going to get sicker. He will need further work-up of this mass. We did discuss that there is a certainly a possibility that this may be cancer and that is a primary concern. Because of his age illness inability to take p.o. and ileus I think he does need to come in the hospital. I discussed case with hospitalist Lab Data Attestation: I reviewed the patient's lab results. Labs: Laboratory Results - last 24 hr 11/10/21 11/10/21 11/10/21 16:00 16:00 16:00 WBC 5.7 RBC 6.08 Hgb 16.9 H Hct 52.3 MCV 86.0 MCH 27.8 MCHC 32.3 RDW Std Deviation 46.0 H RDW Coeff of [place] 14.6 Plt Count 135 L MPV 11.0 Immature Gran % (Auto) 0.400 Neut % (Auto) 68.0 Lymph % (Auto) 17.5 L [place] % (Auto) 12.0 H Eos % (Auto) 1.2 Baso % (Auto) 0.9 Absolute Neuts (auto) 3.9 Absolute Lymphs (auto) 0.99 Nucleated RBC % 0 Sodium 131 L 131 L Potassium 4.7 4.7 Chloride 96 L 96 L Carbon Dioxide 28.0 26.0 Anion Gap 7 9 BUN 10 10 Creatinine 1.06 1.12 Estim Creat Clear Calc 50.16 47.47 Est GFR (MDRD) Af Amer 86 81 Est GFR (MDRD) Non-Af 71 67 BUN/Creatinine Ratio 9.4 L 8.9 L Glucose 103 103 Calcium 9.7 9.6 Total Bilirubin 1.60 H AST 96 H ALT 36 Alkaline Phosphatase 107 Total Protein 7.6 Albumin 3.7 Globulin 3.9 Albumin/Globulin Ratio 0.9 Lipase 201 Urine Color Urine Clarity Urine pH Ur Specific [place] Urine Protein Urine Glucose (UA) Urine Ketones Urine Occult Blood Urine Nitrite Urine Bilirubin Urine Urobilinogen Ur Leukocyte Esterase Urine RBC Urine WBC Ur Squamous Epith Cells Urine Bacteria Urine Mucus 11/10/21 17:30 WBC RBC Hgb Hct MCV MCH MCHC RDW Std Deviation RDW Coeff of Nixon Plt Count MPV Immature Gran % (Auto) Neut % (Auto) Lymph % (Auto) [place] % (Auto) Eos % (Auto) Baso % (Auto) Absolute Neuts (auto) Absolute Lymphs (auto) Nucleated RBC % Sodium Potassium Chloride Carbon Dioxide Anion Gap BUN Creatinine Estim Creat Clear Calc Est GFR (MDRD) Af Amer Est GFR (MDRD) Non-Af BUN/Creatinine Ratio Glucose Calcium Total Bilirubin AST ALT Alkaline Phosphatase Total Protein Albumin Globulin Albumin/Globulin Ratio Lipase Urine Color Yellow Urine Clarity Clear Urine pH 6.5 Ur Specific [place] 1.010 Urine Protein Negative Urine Glucose (UA) Normal Urine Ketones 5 H Urine Occult Blood Negative Urine Nitrite Negative Urine Bilirubin Negative Urine Urobilinogen Normal Ur Leukocyte Esterase Negative Urine RBC 0 SEEN Urine WBC 0 SEEN Ur Squamous Epith Cells 0-5 SEEN Urine Bacteria RARE Urine Mucus 0 SEEN Radiography Diagnostic Testing: Clinical Impression(s) from Imaging Studies Abdomen/Pelvis CT 11/10/21 16:18 IMPRESSION: Diffuse hepatocellular disease and splenomegaly. Since prior study there has been interval development of a poorly defined large mass in left lobe of liver extending into the claudia hepatis occluding the portal vein with associated cavernous transformation suspicious for hepatoma. There are other tiny hypoattenuated densities possibly cysts which are unchanged since prior study. There is also associated mild diffuse mesenteric edema and moderate amount of ascites. MRI of the liver with and without contrast would be helpful for more definitive evaluation Findings which may be consistent with nonspecific gastritis and diffuse mild ileus with fecal retention in the colon. Electronically Signed: Bruce Cleary MD at 17:30 EDT , Discharge Plan Triage Chief Complaint: Abd Pain ED Provider: Edmar Masters Dx/Rx/DC Orders Clinical Impression: Hepatic tumor, Ileus, Nausea Prescriptions: No Action aspirin 81 MG tablet 81 mg PO DAILY@0800 0RF finasteride 5 mg tablet 5 mg PO DAILY prednisolone acetate 1 DROP drops,suspension 1 drop EACH EYE DAILY atorvastatin 40 mg tablet 40 mg PO QHS Qty: 90 3RF carvedilol 3.125 mg tablet 3.125 mg PO BID Qty: 180 3RF Hold Instructions: eye hemorrhage lisinopril 2.5 mg tablet 2.5 mg PO DAILY Qty: 90 3RF Primary Care Provider: Doe Suárez Referrals: Doe Suárez MD [Primary Care Provider] - Disposition Disposition: Acute Care Hospital [facility]
[2021-11-10] MEDS: 0.9% Normal Saline 1,000 ML 1000 ML IV (16:25)
[2021-11-10 16:26] LABS: Absolute Lymphocyte Count 0.99 X10^3/uL (0.83-4.51); Absolute Neutrophil Count 3.9 X10^3/uL (2.0-7.7); Anion Gap 7 (5-15); BUN 10 mg/dL (7-18); BUN/Creat Ratio 9.4 RATIO (10-20); Basophil# 0.05 X10^3/uL; Basophil% 0.9 % (0-1); Calcium,Total 9.7 mg/dL (8.5-10.1); Chloride 96 mmol/L (98-107); Creatinine, Serum 1.06 mg/dL (0.70-1.30); EST Glomerular Filtration Rate 71 mL/min (>60); Eosinophil# 0.07 X10^3/uL; Eosinophils% 1.2 % (0-5); Est Glom Filt Rate - Afr Amer 86 mL/min (>60); Estimated Creatinine Clearance 50.16 ml/min; Glucose 103 mg/dL (74-106); Hematocrit 52.3 % (40-54); Hemoglobin 16.9 g/dL (13.0-16.5); Lymphocyte # 0.99 X10^3/ul (0.83-4.51); Lymphocyte % 17.5 % (19-41); Mean Corp Hgb Conc 32.3 g/dL (32-36); Mean Corpuscular Hgb 27.8 pg (27.0-32.0); Monocyte# 0.68 X10^3/uL; NRBC Flagged by Analyzer 0 % (0-5); Neutrophil # 3.86 X10^3/uL (2.7-7.7); Platelet Count 135 K/mm3 (150-450); Potassium 4.7 mmol/L (3.5-5.1); RBC Distribution Width CV 14.6 % (11.6-14.6); Red Blood Count 6.08 M/mm3 (4.6-6.2); Sodium Level 131 mmol/L (136-145); White Blood Count 5.7 K/mm3 (4.4-11.0)
[2021-11-10 17:34] LABS: Mucous, Urine 0 SEEN /hpf (<or=2+); Red Blood Cells-Urine 0 SEEN /hpf (0-5); White Blood Cells 0 SEEN /hpf (0-5)
[2021-11-10 17:43] LABS: Color, Urine Yellow (Yellow); Glucose, Dipstick Normal (Normal); Ketone-Dipstick 5 mg/dl (Negative); Leukocyte Esterase-Dipstick Negative /ul (Negative); Nitrite-Dipstick Negative (Negative); Occult Blood-Urine Negative /ul (Negative); Protein-Dipstick Negative (Negative); Urine Bilirubin Dipstick Negative (Negative); Urine Clarity Clear (Clear); Urine Urobilinogen Normal (Normal); Urine pH 6.5 (5.0 - 8.0)
[2021-11-10 18:09] LABS: Bacteria RARE /hpf (None Seen); Squamous Epithelial Cells - UA 0-5 SEEN /hpf (0-5)
[2021-11-10 18:37] LABS: ALB/GLOB Ratio 0.9 RATIO (0.9-2.4); AST(SGOT) 96 U/L (15-37); Alanine Aminotransfer ALT/SGPT 36 U/L (16-61); Albumin, Serum 3.7 g/dL (3.2-5.0); Alkaline Phosphatase 107 U/L (45-117); Anion Gap 9 (5-15); BUN 10 mg/dL (7-18); BUN/Creat Ratio 8.9 RATIO (10-20); Calcium,Total 9.6 mg/dL (8.5-10.1); Chloride 96 mmol/L (98-107); Creatinine, Serum 1.12 mg/dL (0.70-1.30); EST Glomerular Filtration Rate 67 mL/min (>60); Est Glom Filt Rate - Afr Amer 81 mL/min (>60); Estimated Creatinine Clearance 47.47 ml/min; Globulin 3.9 g/dL (2.2-4.2); Glucose 103 mg/dL (74-106); Lipase 201 U/L (73-393); Potassium 4.7 mmol/L (3.5-5.1); Protein, Total 7.6 g/dL (6.4-8.2); Sodium Level 131 mmol/L (136-145)
--- NOTE | 2021-11-10 19:33 | HP.PCM.HOS_ITS ---
HPI - General General Date of Admission: 11/10/21 Date of Service: 11/10/21 Chief Complaint: abdominal pain HPI Narrative PATRICIA WAGNER, is a 80 M with a PMH as outlined who presents via the ED on 11/10/2021 with a complaint of abdominal pain which had been going on for about a month. He had associated cramping and bloating. He had associated constipation, and said he had been taking miralax. Miralax helped with bowel movement but didnt help with the abdominal bloating and fullness. He had associated nausea with eating but denied any vomiting. He also complained of ~ 5 pound unintentional weight loss over the last few months. He denies any fever, chills, diarrhea or vomiting or jaundice. Review of systems was otherwise negative. Vitals in the ED showed BP of 158/98, DE of 67 and RR of 18 as well as temp of 98F and oxygen sats of 96% on room air. CBC showed Hb of 16/9, wbc of 5.7 and platelets of 135. Chemistry showed sodium of 131 with total bilirubin of 1.6 and AST of 96; liver enzymes were otherwise WNL. Urinalysis was normal. CT of the abdomen and pelvis showed diffuse hepatocellular disease and splenomegaly as well as interval development of a poorly defined large mass in the left liver lobe extending into the claudia hepatis occluding the portal vein with associated cavernous transformation suspicious for hepatoma with mild diffuse mesenteric edema and moderate amount of ascites. He also had nonspecific gastritis and diffuse moderate ileus. He has been admitted to be managed for newly diagnosed liver mass likely hepatocellular carcinoma. [facility] Medical History Atherosclerosis of coronary artery of [place] heart without angina pectoris Essential hypertension Former smoker Hepatitis C History of ST elevation myocardial infarction (STEMI) Ischemic cardiomyopathy Presence of stent in coronary artery (~02/18/17) Pure hypercholesterolemia STEMI (ST elevation myocardial infarction) Thrombocytopenia Wide-complex tachycardia Home Medications aspirin 81 mg tablet,delayed release 81 mg PO DAILY@0800 02/20/17 [Rx Last Taken Unknown] atorvastatin 40 mg tablet 40 mg PO QHS #90 tabs 09/20/21 [Rx Last Taken Unknown] carvedilol 3.125 mg tablet 3.125 mg PO BID bp 11/10/21 [History Last Taken Unknown] finasteride 5 mg tablet 5 mg PO DAILY 11/10/21 [History Last Taken Unknown] lisinopril 2.5 mg tablet 2.5 mg PO DAILY bp 11/10/21 [History Last Taken Unknown] prednisolone acetate 1 % eye drops,suspension 1 drop EACH EYE DAILY Check with primary doctor 11/10/21 [History Last Taken Unknown] Allergy/AdvReac Type Severity Reaction Status Date / Time No Known Allergies Allergy Verified 11/10/21 14:50 Family History Father Cancer Mother CVA (cerebral vascular accident) Brother Cancer Prostate Cancer Surgical History Presence of coronary angioplasty implant and graft (~02/18/17) Social History Smoking Status: Former smoker how long ago did patient quit smokin alcohol intake: current alcohol intake frequency: a few times a month Alcohol type: beer and wine substance use type: does not use caffeine: Yes Type: coffee Number of servings: 2 what type of physical activity do you participate in: none seatbelt use: always do you feel safe at home: Yes ROS Constitutional Constitutional: Reports change in weight, fatigue, malaise and weakness; Denies anorexia, chills or fever(s) Eyes Eyes: Denies change in vision ENT HEENT: Denies dysphagia, headache(s), nasal discharge or sore throat Cardiovascular Cardiovascular: Denies chest pain, dyspnea on exertion, edema, lightheadedness, orthopnea, palpitations, paroxysmal nocturnal dyspnea, rapid heart rate or syncope Respiratory/Chest Respiratory/Chest: Denies cough, dyspnea, productive cough, shortness of breath at rest or shortness of breath with exertion Gastrointestinal Gastrointestinal: Reports abdominal pain, constipation and nausea; Denies diarrhea, dyspepsia, hematemesis, hematochezia, loose stools, melena or vomiting Genitourinary Genitourinary: Denies dysuria Neurologic Neurologic: Denies confusion, dizziness, focal weakness, headache(s), seizures or syncope Psychiatric Psychiatric: Denies anxiety or depression Vital Signs Vital Signs Vital Signs: 11/10/21 14:47 Temperature 98 F Temperature Source Temporal Pulse Rate 67 Respiratory Rate 18 Blood Pressure 158/98 H Blood Pressure Mean 118 Pulse Ox 96 Oxygen Delivery Method Room Air Weight Weight: 160 lb Body Mass Index (BMI) 25.8 Physical Exam Const alert, oriented x3 and no apparent distress General Appearance: cooperative HEENT normocephalic, head/scalp atraumatic, hearing grossly normal bilaterally and moist oral mucous membranes Mouth: oral and palatal mucosa normal Neck no lymphadenopathy, supple and no JVD Resp normal respiratory effort, no retractions, no use of accessory muscles and clear to auscultation bilaterally Cardio regular rate, regular rhythm, S1 normal heart sound, S2 normal heart sound and no murmurs GI GI Narrative: abdomen mildly distended, no tenderness. No organomegaly Extremity normal to inspection, full ROM and no clubbing, cyanosis or edema Neuro oriented x3, CN's II-XII intact bilaterally, moves all extremities and no focal motor deficits Sensorium / Orientation: awake and alert Motor Exam: strength 5/5 throughout Psych affect normal Results Lab / Micro Data Result Diagrams: 11/11/21 05:35 11/11/21 05:35 Labs: Laboratory Results - last 24 hr 11/10/21 16:00: WBC 5.7, RBC 6.08, Hgb 16.9 H, Hct 52.3, MCV 86.0, MCH 27.8, MCHC 32.3, RDW Std Deviation 46.0 H, RDW Coeff of [place] 14.6, Plt Count 135 L, MPV 11.0, Immature Gran % (Auto) 0.400, Neut % (Auto) 68.0, Lymph % (Auto) 17.5 L, [place] % (Auto) 12.0 H, Eos % (Auto) 1.2, Baso % (Auto) 0.9, Absolute Neuts (auto) 3.9, Absolute Lymphs (auto) 0.99, Nucleated RBC % 0 11/10/21 16:00: Sodium 131 L, Potassium 4.7, Chloride 96 L, Carbon Dioxide 28.0, Anion Gap 7, BUN 10, Creatinine 1.06, Estim Creat Clear Calc 50.16, Est GFR (MDRD) Af Amer 86, Est GFR (MDRD) Non-Af 71, BUN/Creatinine Ratio 9.4 L, Glucose 103, Calcium 9.7 11/10/21 16:00: Sodium 131 L, Potassium 4.7, Chloride 96 L, Carbon Dioxide 26.0, Anion Gap 9, BUN 10, Creatinine 1.12, Estim Creat Clear Calc 47.47, Est GFR (MDRD) Af Amer 81, Est GFR (MDRD) Non-Af 67, BUN/Creatinine Ratio 8.9 L, Glucose 103, Calcium 9.6, Total Bilirubin 1.60 H, AST 96 H, ALT 36, Alkaline Phosphatase 107, Total Protein 7.6, Albumin 3.7, Globulin 3.9, Albumin/Globulin Ratio 0.9, Lipase 201 11/10/21 17:30: Urine Color Yellow, Urine Clarity Clear, Urine pH 6.5, Ur Specific [place] 1.010, Urine Protein Negative, Urine Glucose (UA) Normal, Urine Ketones 5 H, Urine Occult Blood Negative, Urine Nitrite Negative, Urine Bilirubin Negative, Urine Urobilinogen Normal, Ur Leukocyte Esterase Negative, Urine RBC 0 SEEN, Urine WBC 0 SEEN, Ur Squamous Epith Cells 0-5 SEEN, Urine Bacteria RARE, Urine Mucus 0 SEEN Radiology Impression Abdomen/Pelvis CT 11/10/21 16:18 IMPRESSION: Diffuse hepatocellular disease and splenomegaly. Since prior study there has been interval development of a poorly defined large mass in left lobe of liver extending into the claudia hepatis occluding the portal vein with associated cavernous transformation suspicious for hepatoma. There are other tiny hypoattenuated densities possibly cysts which are unchanged since prior study. There is also associated mild diffuse mesenteric edema and moderate amount of ascites. MRI of the liver with and without contrast would be helpful for more definitive evaluation Findings which may be consistent with nonspecific gastritis and diffuse mild ileus with fecal retention in the colon. Electronically Signed: Bruce Cleary MD at 17:30 EDT , Assessment & Plan Assessment/Plan (1) Hepatic tumor: (2) Ileus: PLAN: Plan #Liver mass * admitted with a complaint of abdominal pain, distension and nausea as well as bloating. Symptoms are likely due to newly diagnosed liver mass * CT abdomen and pelvis showed a poorly defined large mass in the left liver lobe extending into the claudia hepatis, occluding the poratl vein with associated cavernouos transformation suspicious for hepatoma, and mild diffuse mesenteric edema and moderate amount of ascites, as well as nonspecific gastritis and diffuse mild ileus. * It turns out that patient has a history of hepatitis C diagnosed 3 years ago; son thinks patient may have gotten it from his who 3 years ago from metastatic lung cancer. * consult gastroenterology * keep on clear liquids for now * IV zofran prn * will order MRI of the liver to better delineate liver mass. * IV morphine and PO oxycodone prn for pain * #CAD s/p stents: on aspirin, statin and carvedilol #History of hepatitis C * diagnosed 3 years ago after he had abnormal liver enzymes on routine labs, and further workup done showed he had hepatitis C. * he completed 3 months of treatment by gastroenterology, and says he was told t he virus had cleared. * he doesnt know how long he had it for, and denies any history of blood trans fusions or IV drug use. Son thinks patient may have gotten it from his . * This is the most obvious risk factor for liver cancer * #Hyperlipidemia: on statin #Hypertension; on carvedilol and lisinopril #Wide complex tachycardia #Ischemic cardiomyopathy: on aspirin, statin and carvedilol DVT prophylaxis: lovenox COde status: full code * Patient counseled extensively about different types of CODE STATUS including full code, DNR CCA and DNR CCA. Patient initially didnt want CPR, but admitted to intubation. He subsequently agreed to CPR if needed. COde status is therefore full code. * Total [id number] time 17 minutes. Charges/Coding Visit Charges Inpatient E&M: 61424 Init Hosp L3 Procedures Hospitalists Procedures: 18370 Advncd Care Plan 30 Min
[2021-11-10] MEDS: Morphine 2 MG/ML Syringe IV (20:03)
[2021-11-10] MEDS: Ondansetron 4 MG/2 ML Vial IV (20:03)
[2021-11-10 20:16] VITALS: BP 163/93; PULSE 77; RESP 16; TEMP 36.6; O2SAT 90
[2021-11-10 20:50] VITALS: BMI 24.5
[2021-11-10 20:57] VITALS: BP 139/85; PULSE 74; RESP 14; TEMP 36.6; O2SAT 93
[2021-11-10] MEDS: 0.9% Saline Lock 10 ML Syringe IV (21:26)
[2021-11-10] MEDS: Carvedilol 3.125 MG TABLET PO (21:27)
[2021-11-10] MEDS: 0.9% Normal Saline 1,000 ML 125 ML IV (21:27)
[2021-11-10] MEDS: Atorvastatin Calcium 40 MG Tablet PO (21:27)
[2021-11-11 03:53] VITALS: BP 138/75; PULSE 70; RESP 18; TEMP 36.3; O2SAT 95
[2021-11-11] MEDS: 0.9% Normal Saline 1,000 ML 125 ML IV (05:28)
--- NOTE | 2021-11-11 05:55 | MRI_ITS ---
STUDY: MRI ABDOMEN WITH AND WITHOUT CONTRAST REASON FOR EXAM: Male, 80 years old. liver mass TECHNIQUE: Standardized fat and water weighted pulse sequences were obtained in all 3 orthogonal planes post contrast administration. IV 14ml Clariscan was administered for the contrast portion of the examination. COMPARISON: None. FINDINGS: The visualized lung bases are unremarkable. The visualized portions of the heart are within normal limits. There is a diffuse contour abnormality of the liver consistent with cirrhotic changes. Large (6.5 x 10.0 cm heterogeneous enhancing mass occupying virtually the entire lateral segment left lobe of the liver worrisome for hepatocellular carcinoma, or less likely solitary metastasis. Furthermore, this mass is associated with significant mass effect with intrahepatic biliary ductal dilatation as well as abnormal intensity and enlargement of the left portal vein extending into the main portal vein confluence worrisome for thrombus or extension of tumor. This produces mass effect on the proximal right portal vein but some contrast is seen within the right portal vein and its branches. Normal gallbladder and extrahepatic biliary system. There is mild splenomegaly. Normal pancreas. Normal bilateral adrenal glands. Normal right kidney. Normal left kidney. Normal visualized stomach. Normal small intestine. Normal colon. Normal abdominal aorta. Normal inferior vena cava. Normal retroperitoneum. Normal abdominal wall. Mild levoscoliosis of the lumbar spine with degenerative disc disease. MRI/MRI Abd WITH and W/O Contrast IMPRESSION: Cirrhosis with a large mass of the lateral segment of the left lobe of the liver worrisome for hepatocellular carcinoma or less likely solitary metastasis. Significant mass effect with enlargement of virtually the entire lateral segment left lobe and associated tumor or bland thrombus within the left portal vein extending to the main portal vein confluence. N.B. : The above Results were Read Back by Ross Centeno MD to MD Dawood, and understanding confirmed on 11/11/2021 12:14:26 (ET). Electronically Signed: Ross Centeno MD at 11:56 EDT ,
[2021-11-11 05:57] LABS: Absolute Lymphocyte Count 0.86 X10^3/uL (0.83-4.51); Basophil# 0.05 X10^3/uL; Basophil% 1.1 % (0-1); Eosinophil# 0.15 X10^3/uL; Eosinophils% 3.2 % (0-5); Hematocrit 49.3 % (40-54); Hemoglobin 15.5 g/dL (13.0-16.5); Lymphocyte # 0.86 X10^3/ul (0.83-4.51); Lymphocyte % 18.3 % (19-41); Mean Corp Hgb Conc 31.4 g/dL (32-36); Mean Corpuscular Hgb 27.2 pg (27.0-32.0); Mean Corpuscular Volume 86.6 fL (80-94); Mean Platelet Vol. 11.1 fl (6.2-12.0); Monocyte# 0.59 X10^3/uL; Monocyte% 12.6 % (0-10); NRBC Flagged by Analyzer 0 % (0-5); Neutrophil # 3.04 X10^3/uL (2.7-7.7); Neutrophil % 64.6 % (47-70); Platelet Count 123 K/mm3 (150-450); RBC Distribution Width CV 14.6 % (11.6-14.6); RBC Distribution Width SD 46.3 fl (35.1-43.9); Red Blood Count 5.69 M/mm3 (4.6-6.2); White Blood Count 4.7 K/mm3 (4.4-11.0)
[2021-11-11 06:27] LABS: ALB/GLOB Ratio 0.9 RATIO (0.9-2.4); AST(SGOT) 73 U/L (15-37); Alanine Aminotransfer ALT/SGPT 29 U/L (16-61); Albumin, Serum 2.9 g/dL (3.2-5.0); Alkaline Phosphatase 72 U/L (45-117); Anion Gap 8 (5-15); BUN 8 mg/dL (7-18); Calcium,Total 8.5 mg/dL (8.5-10.1); Chloride 100 mmol/L (98-107); Creatinine, Serum 0.89 mg/dL (0.70-1.30); EST Glomerular Filtration Rate 88 mL/min (>60); Est Glom Filt Rate - Afr Amer 106 mL/min (>60); Estimated Creatinine Clearance 59.74 ml/min; Globulin 3.2 g/dL (2.2-4.2); Glucose 80 mg/dL (74-106); Potassium 4.3 mmol/L (3.5-5.1); Protein, Total 6.1 g/dL (6.4-8.2); Sodium Level 133 mmol/L (136-145)
--- NOTE | 2021-11-11 07:47 | PN.HOSP_ITS ---
Subjective Subjective Follow-up for liver mass. Patient was admitted with abdominal pain for 1 month with cramping and bloating and constipation. He also had about 10 pounds weight loss in 1 month. He was 89 but currently weighing 152 pound. Objective Data Objective Data Vital Signs: Vital Signs Temp Pulse Resp BP Pulse Ox O2 Del Method 97.4 F L 70 18 138/75 H 95 Room Air 11/11/21 03:53 11/11/21 03:53 11/11/21 03:53 11/11/21 03:53 11/11/21 03:53 11/11/21 03:53 Oxygen Delivery Method Room Air Weight: 152 lb 12.485 oz Body Mass Index (BMI) 24.5 Intake & Output: Intake and Output for Last 24 Hours 11/09/21 11/10/21 11/11/21 23:59 23:59 23:59 Intake Total 1000 / 1000 1400 / 1400 Balance 1000 / 1000 1400 / 1400 Lab / Micro Data Result Diagrams: 11/11/21 05:35 11/11/21 05:35 Labs: Laboratory Results - last 24 hr 11/10/21 16:00: WBC 5.7, RBC 6.08, Hgb 16.9 H, Hct 52.3, MCV 86.0, MCH 27.8, MCHC 32.3, RDW Std Deviation 46.0 H, RDW Coeff of Nixon 14.6, Plt Count 135 L, MPV 11.0, Immature Gran % (Auto) 0.400, Neut % (Auto) 68.0, Lymph % (Auto) 17.5 L, [place] % (Auto) 12.0 H, Eos % (Auto) 1.2, Baso % (Auto) 0.9, Absolute Neuts (auto) 3.9, Absolute Lymphs (auto) 0.99, Nucleated RBC % 0 11/10/21 16:00: Sodium 131 L, Potassium 4.7, Chloride 96 L, Carbon Dioxide 28.0, Anion Gap 7, BUN 10, Creatinine 1.06, Estim Creat Clear Calc 50.16, Est GFR (MDRD) Af Amer 86, Est GFR (MDRD) Non-Af 71, BUN/Creatinine Ratio 9.4 L, Glucose 103, Calcium 9.7 11/10/21 16:00: Sodium 131 L, Potassium 4.7, Chloride 96 L, Carbon Dioxide 26.0, Anion Gap 9, BUN 10, Creatinine 1.12, Estim Creat Clear Calc 47.47, Est GFR (MDRD) Af Amer 81, Est GFR (MDRD) Non-Af 67, BUN/Creatinine Ratio 8.9 L, Glucose 103, Calcium 9.6, Total Bilirubin 1.60 H, AST 96 H, ALT 36, Alkaline Phosphatase 107, Total Protein 7.6, Albumin 3.7, Globulin 3.9, Albumin/Globulin Ratio 0.9, Lipase 201 11/10/21 17:30: Urine Color Yellow, Urine Clarity Clear, Urine pH 6.5, Ur Specific [place] 1.010, Urine Protein Negative, Urine Glucose (UA) Normal, Urine Ketones 5 H, Urine Occult Blood Negative, Urine Nitrite Negative, Urine Bilirubin Negative, Urine Urobilinogen Normal, Ur Leukocyte Esterase Negative, Urine RBC 0 SEEN, Urine WBC 0 SEEN, Ur Squamous Epith Cells 0-5 SEEN, Urine Bacteria RARE, Urine Mucus 0 SEEN 11/11/21 05:35: WBC 4.7, RBC 5.69, Hgb 15.5, Hct 49.3, MCV 86.6, MCH 27.2, MCHC 31.4 L, RDW Std Deviation 46.3 H, RDW Coeff of Nixon 14.6, Plt Count 123 L, MPV 11.1, Immature Gran % (Auto) 0.200, Neut % (Auto) 64.6, Lymph % (Auto) 18.3 L, [place] % (Auto) 12.6 H, Eos % (Auto) 3.2, Baso % (Auto) 1.1 H, Absolute Neuts (auto) 3.0, Absolute Lymphs (auto) 0.86, Nucleated RBC % 0 11/11/21 05:35: Sodium 133 L, Potassium 4.3, Chloride 100, Carbon Dioxide 25.0, Anion Gap 8, BUN 8, Creatinine 0.89, Estim Creat Clear Calc 59.74, Est GFR (MDRD) Af Amer 106, Est GFR (MDRD) Non-Af 88, BUN/Creatinine Ratio 9.0 L, Glucose 80, Calcium 8.5, Total Bilirubin 1.60 H, AST 73 H, ALT 29, Alkaline Phosphatase 72, Total Protein 6.1 L, Albumin 2.9 L, Globulin 3.2, Albumin/Globulin Ratio 0.9 Radiography Diagnostic Testing: Radiology Impression Abdomen/Pelvis CT 11/10/21 16:18 IMPRESSION: Diffuse hepatocellular disease and splenomegaly. Since prior study there has been interval development of a poorly defined large mass in left lobe of liver extending into the claudia hepatis occluding the portal vein with associated cavernous transformation suspicious for hepatoma. There are other tiny hypoattenuated densities possibly cysts which are unchanged since prior study. There is also associated mild diffuse mesenteric edema and moderate amount of ascites. MRI of the liver with and without contrast would be helpful for more definitive evaluation Findings which may be consistent with nonspecific gastritis and diffuse mild ileus with fecal retention in the colon. Electronically Signed: Bruce Cleary MD at 17:30 EDT , Physical Exam Narrative Physical exam General: Alert, Oriented x3, Cooperative, BMI 24.6 kg per metered square HEENT: Atraumatic, PERRLA, EOMI, Normocephalic Oral: No Gingival or Mucosal Lesions/ Ulcerations Neck: Supple, No JVD, Negative Carotid Bruits Lungs: Air entry diminished in bilateral lung bases. No crepitation/rhonchi Cardiovascular: Regular rate, Regular Rhythm, Normal S1, Normal S2, No murmurs Abdomen: Soft, abdomen distended, ascites with fluid thrill. Nontender. Bowel Sounds Present : No renal angle tenderness. No suprapubic tenderness. Extremities: No edema, Capillary Refill Less than 3 Seconds Skin: No rashes, No breakdown Musculoskeletal: No Tenderness to Palpation of Joints or Extremities. Moderate muscle atrophy of extremities Neurological: Cranial nerves II-XII grossly intact, DTR 2+/4 and Symmetrical, Neuro grossly intact Psych/Mental Status: Flat affect Assessment & Plan Assessment/Plan (1) Hepatic tumor: (2) Ileus: PLAN: Plan 1. Very high probability of primary HCC with portal vein thrombosis/tumor thrombosis: [facility] with abdominal pain, distention and nausea. On pain control Zofran and clear liquid. The radiologist called me about the critical finding MRI abdomen which was done triple phase for HCC protocol. 11/11: CT abdomen and MRI abdomen individually reviewed.CT abdomen and pelvis showed a poorly defined large mass in the left liver lobe extending into the claudia hepatis, occluding the poratl vein with associated cavernouos transform ation suspicious for hepatoma, and mild diffuse mesenteric edema and moderate amount of ascites, as well as nonspecific gastritis and diffuse mild ileus. MRI abdomen shows large liver mass in the lateral segment of left lobe, highly concerning for HCC with mass-effect in the whole left lobe. Associated tumor thrombus in left portal vein extending to main portal vein confluence. Patient is started on IV heparin drip without bolus as he got enoxaparin 40 mg in the morning. Discussed with the computer applications engineer. The patient does not satisfy [place] criteria because of tumor thrombosis. Patient liver is cirrhotic therefore not a good candidate for liver resection with increased age. He might be candidate for palliative sorafenib. Patient does not want to go to tertiary care for further opinion regarding options of treatment and tumor board recommendation. He wants to get treated in [place] 2. #CAD s/p stents: on aspirin, statin and carvedilol 3. #History of hepatitis C * diagnosed 3 years ago after he had abnormal liver enzymes on routine labs, and further workup done showed he had hepatitis C. * he completed 3 months of treatment by gastroenterology, and says he was told the virus had cleared. * he doesnt know how long he had it for, and denies any history of blood transfusions or IV drug use. Son thinks patient may have gotten it from his wi fe. * This is the most obvious risk factor for liver cancer This can be treated as an outpatient. #Hyperlipidemia: on statin #Hypertension; on carvedilol and lisinopril #Wide complex tachycardia #Ischemic cardiomyopathy: on aspirin, statin and carvedilol Acute protein calorie malnutrition mostly due to liver mass with high probability of HCC DVT prophylaxis: lovenox COde status: full code * Patient counseled extensively about different types of CODE STATUS including full code, DNR CCA and DNR CCA. Patient initially didnt want CPR, but admitted to intubation. He subsequently agreed to CPR if needed. COde status is therefore full code. Total time of the visit including total time spent in counseling or coordination of care, (more than 50% of the total time, spent in obtaining medical information from nurses and other ancillary care providers,explaining to the patient about labs, imaging, diagnosis and management of active complex medical conditions), discussion of the patient regarding anatomy, tumor biology and treatment options of HCC, review of labs and imaging and discussion with computer applications engineer is 45 minutes. Clinical Impression(s) from Imaging Studies Abdomen/Pelvis CT 11/10/21 16:18 IMPRESSION: Diffuse hepatocellular disease and splenomegaly. Since prior study there has been interval development of a poorly defined large mass in left lobe of liver extending into the claudia hepatis occluding the portal vein with associated cavernous transformation suspicious for hepatoma. There are other tiny hypoattenuated densities possibly cysts which are unchanged since prior study. There is also associated mild diffuse mesenteric edema and moderate amount of ascites. MRI of the liver with and without contrast would be helpful for more definitive evaluation Findings which may be consistent with nonspecific gastritis and diffuse mild ileus with fecal retention in the colon. Electronically Signed: Bruce Cleary MD at 17:30 EDT , Abdomen MRI 11/11/21 05:55 IMPRESSION: Cirrhosis with a large mass of the lateral segment of the left lobe of the liver worrisome for hepatocellular carcinoma or less likely solitary metastasis. Significant mass effect with enlargement of virtually the entire lateral segment left lobe and associated tumor or bland thrombus within the left portal vein extending to the main portal vein confluence. Laboratory Results 11/10/21 16:00: Sodium 131 L, Potassium 4.7, Chloride 96 L, Carbon Dioxide 26.0, Anion Gap 9, BUN 10, Creatinine 1.12, Estim Creat Clear Calc 47.47, Est GFR (MDRD) Af Amer 81, Est GFR (MDRD) Non-Af 67, BUN/Creatinine Ratio 8.9 L, Glucose 103, Calcium 9.6, Total Bilirubin 1.60 H, AST 96 H, ALT 36, Alkaline Phosphatase 107, Total Protein 7.6, Albumin 3.7, Globulin 3.9, Albumin/Globulin Ratio 0.9, Lipase 201 11/10/21 17:30: Urine Color Yellow, Urine Clarity Clear, Urine pH 6.5, Ur Specific [place] 1.010, Urine Protein Negative, Urine Glucose (UA) Normal, Urine Ketones 5 H, Urine Occult Blood Negative, Urine Nitrite Negative, Urine Bili simpson Negative, Urine Urobilinogen Normal, Ur Leukocyte Esterase Negative, Urine RBC 0 SEEN, Urine WBC 0 SEEN, Ur Squamous Epith Cells 0-5 SEEN, Urine Bacteria RARE, Urine Mucus 0 SEEN 11/11/21 05:35: WBC 4.7, RBC 5.69, Hgb 15.5, Hct 49.3, MCV 86.6, MCH 27.2, MCHC 31.4 L, RDW Std Deviation 46.3 H, RDW Coeff of Nixon 14.6, Plt Count 123 L, MPV 11.1, Immature Gran % (Auto) 0.200, Neut % (Auto) 64.6, Lymph % (Auto) 18.3 L, [place] % (Auto) 12.6 H, Eos % (Auto) 3.2, Baso % (Auto) 1.1 H, Absolute Neuts (auto) 3.0, Absolute Lymphs (auto) 0.86, Nucleated RBC % 0 11/11/21 05:35: Sodium 133 L, Potassium 4.3, Chloride 100, Carbon Dioxide 25.0, Anion Gap 8, BUN 8, Creatinine 0.89, Estim Creat Clear Calc 59.74, Est GFR (MDRD) Af Amer 106, Est GFR (MDRD) Non-Af 88, BUN/Creatinine Ratio 9.0 L, Glucose 80, Calcium 8.5, Total Bilirubin 1.60 H, AST 73 H, ALT 29, Alkaline Phosphatase 72, Total Protein 6.1 L, Albumin 2.9 L, Globulin 3.2, Albumin/Globulin Ratio 0.9 11/11/21 05:35: Tumor Marker AFP Pending 11/11/21 05:35: Hep Bs Antigen Non-Reactive, Hep Bs Antibody Non-Reactive, Hepatitis C Antibody REACTIVE 11/11/21 13:40: PT Cancelled, INR Cancelled, APTT Cancelled 11/11/21 14:23: PT 15.9 H, INR 1.3, APTT 42.3 H Charges/Coding Visit Charges Inpatient E&M: 97657 Subs Hosp L3
[2021-11-11 08:35] VITALS: BP 135/72; PULSE 72; RESP 18; TEMP 36.2; O2SAT 92
[2021-11-11] MEDS: Finasteride 5 MG Tablet PO (08:36)
[2021-11-11] MEDS: Aspirin E.C. 81 MG Tablet PO (08:36)
[2021-11-11] MEDS: Lisinopril 2.5 MG Tablet PO (08:36)
[2021-11-11] MEDS: Carvedilol 3.125 MG TABLET PO ×2 (08:36→22:26)
[2021-11-11] MEDS: prednisoLONE eye drops (5 mL) 1 DROP OPTH.BTL 1 DRP EACH EYE (08:37)
[2021-11-11] MEDS: Enoxaparin 40 MG/0.4 ML Syringe SC (08:41)
[2021-11-11 09:00] LABS: Hepatitis B Surface Antibody Non-Reactive; Hepatitis B Surface Antigen Non-Reactive (Nonreactive)
[2021-11-11 09:03] LABS: Hepatitis C Antibody REACTIVE (Nonreactive)
--- NOTE | 2021-11-11 10:50 | CASEMGMT ---
RN CM Face to Face with patient for initial transition planning/care coordination assessment. RN CM introduced self and role at [facility]. Patient lying in bed, alert and oriented, son at bedside. Patient willing to participate in assessment and is able to answer all questions appropriately. Care providers, pharmacy, and demographics verified. Patient wishes to discharge home, denies need for home health at this time. Patient states he has no further needs or concerns at this time. CM to follow for discharge planning needs that may arise. 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 Patient states he is independent. Transportation: self, son, daughter DME/HHC: Patient states he has cane, walker, wheelchair, and grab bars at home. No previous HHC or SNF. Disposition Plan: Patient to discharge home with family support and follow-up plans in place. Aurora MCELROY, RN, CM
[2021-11-11 14:47] LABS: International Normalized Ratio 1.3; Prothrombin Time (Protime)PT. 15.9 SECONDS (11.7-14.9)
[2021-11-11 14:48] LABS: Partial Thromboplast Time 42.3 Seconds (24.1-36.2)
[2021-11-11 15:00] VITALS: BP 137/81; PULSE 62; RESP 18; TEMP 36.6; O2SAT 94
[2021-11-11] MEDS: HEPARIN/D5w 25,000 UNITS 25,000 UNITS/250 ML IV.SOLN. 8 UNITS CONT INF (15:02)
--- NOTE | 2021-11-11 18:01 | PCM.CONS.GEN ---
Assessment & Plan Assessment/Plan (1) Hepatic tumor: PLAN: Management of hepatocellular carcinoma (HCC) is best performed in a multidisciplinary setting. Patients should be cooperatively managed by hepatologists, transplant and hepatobiliary surgeons, medical oncologists, interventional radiologists, and palliative care specialists. Specifically, this is crucial to ensure that patients who are candidates for liver transplantation are referred in a timely manner, while their tumors are within the [place] criteria.? Treatment options for hepatocellular carcinoma depend on the following?: Size, number, and location of tumors Presence or absence of cirrhosis Operative risk based on extent of cirrhosis and comorbid diseases Overall performance status Portal vein patency Presence or absence of metastatic disease Before instituting definitive therapy, it is best to treat the complications of cirrhosis, as follows: Sodium restriciton, diuretics, and paracentesis for??ascites Lactulose for encephalopathy Ursodiol for pruritus Sclerosis or banding for variceal bleeding Antibiotics for spontaneous bacterial peritonitis Surgical resection and?liver transplantation?provide the only chances of cure but have limited applicability. The main prognostic factors for resectability are tumor size and liver function. Only about 5% of hepatocellular carcinoma patients are suitable for transplantation; these patients may have a 5-year survival of greater than 75% with tumor recurrence rates as low as 15% at 5 years.?? Thus,?other treatments should be used to bridge patients to transplant or to delay recurrence if possible; these include resection; radiofrequency ablation (RFA); and, potentially, systemic therapy with sorafenib. This can be recommended by oncology. HPI Consult Data Date of Consult: 11/12/21 HPI Narrative Reason for Consultation: hepatocellular carcinoma HPI Narrative: PATRICIA WAGNER, is a 80 M who presented to the emergency room with abdominal pain and cramping for about a month.? He felt he was constipated.? He was on MiraLAX for about 2 weeks.? He has diffuse abdominal discomfort.? He came in today because this was the first time that he felt nauseated when he ate.? He has not vomited.? He denies any fevers or chills.? He did lose about 5 pounds from 1 office visit to the other but has not felt any major weight loss. He does have a history of BPH, high blood pressure and cholesterol.? He is also had heart disease but is not on any blood thinners at this time.? He was for about a year after his stent.? He is not having chest pain or dyspnea.? Nothing really makes his symptoms are notably better or worse.? He has had umbilical hernia surgery but no other abdominal surgery.? Vitals in the ED showed BP of 158/98, HI of 67 and RR of 18 as well as temp of 98F and oxygen sats of 96% on room air. CBC showed Hb of 16/9, wbc of 5.7 and platelets of 135. Chemistry showed sodium of 131 with total bilirubin of 1.6 and AST of 96; liver enzymes were otherwise WNL. Urinalysis was normal. CT of the abdomen and pelvis showed diffuse hepatocellular disease and splenomegaly as well as interval development of a poorly defined large mass in the left liver lobe extending into the claudia hepatis occluding the portal vein with associated cavernous transformation suspicious for hepatoma with mild diffuse mesenteric edema and moderate amount of ascites.? He also had nonspecific gastritis and diffuse moderate ileus.? He has been admitted to be managed for newly diagnosed liver mass likely hepatocellular carcinoma. I was consulted for management of his newly diagnosed hepatocellular carcinoma. [facility] Medical History Atherosclerosis of coronary artery of [facility] [place] heart without angina pectoris Essential hypertension Former smoker Hepatitis C History of ST elevation myocardial infarction (STEMI) Ischemic cardiomyopathy Presence of stent in coronary artery (~02/18/17) Pure hypercholesterolemia STEMI (ST elevation myocardial infarction) Thrombocytopenia Wide-complex tachycardia Home Medications aspirin 81 mg tablet,delayed release 81 mg PO DAILY@0800 02/20/17 [Rx Last Taken Unknown] atorvastatin 40 mg tablet 40 mg PO QHS #90 tabs 09/20/21 [Rx Last Taken Unknown] carvedilol 3.125 mg tablet 3.125 mg PO BID bp 11/10/21 [History Last Taken Unknown] finasteride 5 mg tablet 5 mg PO DAILY 11/10/21 [History Last Taken Unknown] lisinopril 2.5 mg tablet 2.5 mg PO DAILY bp 11/10/21 [History Last Taken Unknown] prednisolone acetate 1 % eye drops,suspension 1 drop EACH EYE DAILY Check with primary doctor 11/10/21 [History Last Taken Unknown] Allergy/AdvReac Type Severity Reaction Status Date / Time No Known Allergies Allergy Verified 11/10/21 14:50 Family History Father Cancer Mother CVA (cerebral vascular accident) Brother Cancer Prostate Cancer Surgical History Presence of coronary angioplasty implant and graft (~02/18/17) Social History Smoking Status: Former smoker how long ago did patient quit smokin alcohol intake: current alcohol intake frequency: a few times a month Alcohol type: beer and wine substance use type: does not use caffeine: Yes Type: coffee Number of servings: 2 what type of physical activity do you participate in: none seatbelt use: always do you feel safe at home: Yes ROS Constitutional Constitutional: Reports change in weight, fatigue, malaise and weakness; Denies anorexia, chills or fever(s) Eyes Eyes: Denies change in vision ENT HEENT: Denies dysphagia, headache(s), nasal discharge or sore throat Cardiovascular Cardiovascular: Denies chest pain, dyspnea on exertion, edema, lightheadedness, orthopnea, palpitations, paroxysmal nocturnal dyspnea, rapid heart rate or syncope Respiratory/Chest Respiratory/Chest: Denies cough, dyspnea, productive cough, shortness of breath at rest or shortness of breath with exertion Gastrointestinal Gastrointestinal: Reports abdominal pain, constipation and nausea; Denies diarrhea, dyspepsia, hematemesis, hematochezia, loose stools, melena or vomiting Genitourinary Genitourinary: Denies dysuria Neurologic Neurologic: Denies confusion, dizziness, focal weakness, headache(s), seizures or syncope Psychiatric Psychiatric: Denies anxiety or depression Physical Exam Narrative Physical exam General: Alert, Oriented x3, Cooperative, BMI 24.6 kg per metered square HEENT: Atraumatic, PERRLA, EOMI, Normocephalic Oral: No Gingival or Mucosal Lesions/ Ulcerations Neck: Supple, No JVD, Negative Carotid Bruits Lungs: Air entry diminished in bilateral lung bases. No crepitation/rhonchi Cardiovascular: Regular rate, Regular Rhythm, Normal S1, Normal S2, No murmurs Abdomen: Soft, abdomen distended, ascites with fluid thrill. Nontender. Bowel Sounds Present : No renal angle tenderness. No suprapubic tenderness. Extremities: No edema, Capillary Refill Less than 3 Seconds Skin: No rashes, No breakdown Musculoskeletal: No Tenderness to Palpation of Joints or Extremities. Moderate muscle atrophy of extremities Neurological: Cranial nerves II-XII grossly intact, DTR 2+/4 and Symmetrical, Neuro grossly intact Psych/Mental Status: Flat affect Medical Records Data Medical Nutrition Assessment Dietitian: Malnutrition Criteria Met Start: 11/11/21 14:42 Freq: Status: Active Protocol: Document 11/11/21 14:43 LO (Rec: 11/11/21 14:43 LO [id number]) Nutrition Malnutrition Evidence of Malnutrition Exists Yes Malnutrition (severe): Chronic Evidenced By Suboptimal Energy Intake ( Severe),Weight Loss (Severe), Physical Changes (Severe) Clinical Problem Chronic Disease or Condition Related Malnutrition Etiology severe, related to newly diagnosed liver mass and ileus , nausea and decreased appetite Signs/Symptoms as evidenced by 5.6% weight loss in 1 month, <75% PO intake of estimated energy needs for 1 month, and severe fat and muscle wasting to temporal and orbital regions Status Active Problem Lab / Micro Data Result Diagrams: 11/11/21 05:35 11/11/21 05:35 Labs: Laboratory Results - last 24 hr 11/10/21 16:00: Sodium 131 L, Potassium 4.7, Chloride 96 L, Carbon Dioxide 26.0, Anion Gap 9, BUN 10, Creatinine 1.12, Estim Creat Clear Calc 47.47, Est GFR (MDRD) Af Amer 81, Est GFR (MDRD) Non-Af 67, BUN/Creatinine Ratio 8.9 L, Glucose 103, Calcium 9.6, Total Bilirubin 1.60 H, AST 96 H, ALT 36, Alkaline Phosphatase 107, Total Protein 7.6, Albumin 3.7, Globulin 3.9, Albumin/Globulin Ratio 0.9, Lipase 201 11/10/21 17:30: Urine RBC 0 SEEN, Urine WBC 0 SEEN, Ur Squamous Epith Cells 0-5 SEEN, Urine Bacteria RARE, Urine Mucus 0 SEEN 11/11/21 05:35: WBC 4.7, RBC 5.69, Hgb 15.5, Hct 49.3, MCV 86.6, MCH 27.2, MCHC 31.4 L, RDW Std Deviation 46.3 H, RDW Coeff of [place] 14.6, Plt Count 123 L, MPV 11.1, Immature Gran % (Auto) 0.200, Neut % (Auto) 64.6, Lymph % (Auto) 18.3 L, [place] % (Auto) 12.6 H, Eos % (Auto) 3.2, Baso % (Auto) 1.1 H, Absolute Neuts (auto) 3.0, Absolute Lymphs (auto) 0.86, Nucleated RBC % 0 11/11/21 05:35: Sodium 133 L, Potassium 4.3, Chloride 100, Carbon Dioxide 25.0, Anion Gap 8, BUN 8, Creatinine 0.89, Estim Creat Clear Calc 59.74, Est GFR (MDRD) Af Amer 106, Est GFR (MDRD) Non-Af 88, BUN/Creatinine Ratio 9.0 L, Glucose 80, Calcium 8.5, Total Bilirubin 1.60 H, AST 73 H, ALT 29, Alkaline Phosphatase 72, Total Protein 6.1 L, Albumin 2.9 L, Globulin 3.2, Albumin/Globulin Ratio 0.9 11/11/21 05:35: Hep Bs Antigen Non-Reactive, Hep Bs Antibody Non-Reactive, Hepatitis C Antibody REACTIVE 11/11/21 13:40: PT Cancelled, INR Cancelled, APTT Cancelled 11/11/21 14:23: PT 15.9 H, INR 1.3, APTT 42.3 H Radiology Impression Abdomen MRI 11/11/21 05:55 IMPRESSION: Cirrhosis with a large mass of the lateral segment of the left lobe of the liver worrisome for hepatocellular carcinoma or less likely solitary metastasis. Significant mass effect with enlargement of virtually the entire lateral segment left lobe and associated tumor or bland thrombus within the left portal vein extending to the main portal vein confluence. N.B. : The above Results were Read Back by Ross Centeno MD to MD Dawood, and understanding confirmed on 11/11/2021 12:14:26 (ET). Electronically Signed: Ross Centeno MD at 11:56 EDT , Charges/Coding Visit Charges Inpatient E&M: 96745 Init Hosp L3
[2021-11-11] MEDS: Ensure Clear 120 ML Liquid PO ×2 (18:16→22:25)
[2021-11-11] MEDS: Ciprofloxacin 250 MG Tablet 750 MG PO (19:18)
[2021-11-11] MEDS: Lactulose 20 GM/30 ML UDC PO (19:19)
[2021-11-11 20:31] VITALS: BP 141/72; PULSE 65; RESP 18; TEMP 36.4; O2SAT 92
[2021-11-11 22:11] LABS: Partial Thromboplast Time 62.5 Seconds (24.1-36.2)
[2021-11-11] MEDS: Ursodiol 250 MG Tablet PO (22:26)
[2021-11-11] MEDS: Atorvastatin Calcium 40 MG Tablet PO (22:26)
--- NOTE | 2021-11-12 00:32 | NURSING ---
Patients APTT came back at 62.5 on 11/11/21 @ 2120. Per Heparin titration protocol no interventions needed and next APTT is scheduled 6 hours later @ 0320.
[2021-11-12 03:29] VITALS: BP 134/79; PULSE 68; RESP 18; TEMP 36.5; O2SAT 92
[2021-11-12 03:47] LABS: Partial Thromboplast Time 66.7 Seconds (24.1-36.2)
--- NOTE | 2021-11-12 03:59 | NURSING ---
Pts APTT came back at 66.7 on 11/12/21 at 0320. Per IV Heparin transfusion protocol no changes to titration were needed. Next APTT will be drawn at 0920.
[2021-11-12 09:06] VITALS: BP 134/75; PULSE 66; RESP 16; TEMP 36.8; O2SAT 94
[2021-11-12] MEDS: Carvedilol 3.125 MG TABLET PO ×2 (09:16→21:58)
[2021-11-12] MEDS: Lactulose 20 GM/30 ML UDC PO (09:16)
[2021-11-12] MEDS: prednisoLONE eye drops (5 mL) 1 DROP OPTH.BTL 1 DRP EACH EYE (09:16)
[2021-11-12] MEDS: Lisinopril 2.5 MG Tablet PO (09:17)
[2021-11-12] MEDS: Ursodiol 250 MG Tablet PO ×2 (09:17→21:58)
[2021-11-12] MEDS: Finasteride 5 MG Tablet PO (09:30)
[2021-11-12] MEDS: Ensure Clear 120 ML Liquid PO ×3 (09:30→21:58)
[2021-11-12 09:36] LABS: Partial Thromboplast Time 68.3 Seconds (24.1-36.2)
[2021-11-12 11:07] LABS: AST(SGOT) 68 U/L (15-37); Alanine Aminotransfer ALT/SGPT 27 U/L (16-61); Albumin, Serum 2.8 g/dL (3.2-5.0); Alkaline Phosphatase 65 U/L (45-117); Bilirubin, Direct 0.46 mg/dL (0.00-0.30); Protein, Total 5.8 g/dL (6.4-8.2)
--- NOTE | 2021-11-12 12:13 | PN.HOSP_ITS ---
Subjective Subjective Follow-up for HCC, cirrhosis and portal vein thrombosis or tumor thrombosis Patient is mild abdominal distention but does not have abdominal pain. Discussed with GI. Prefers diagnostic paracentesis. Diagnosis, natural history, tumor biology discussed with the patient sonRd present in the room Objective Data Objective Data Vital Signs: Vital Signs Temp Pulse Resp BP Pulse Ox O2 Del Method 98.3 F 66 16 134/75 H 94 Room Air 11/12/21 09:06 11/12/21 09:06 11/12/21 09:06 11/12/21 09:06 11/12/21 09:06 11/12/21 09:06 Oxygen Delivery Method Room Air Weight: 152 lb 12.485 oz Body Mass Index (BMI) 24.5 Intake & Output: Intake and Output for Last 24 Hours 11/10/21 11/11/21 11/12/21 23:59 23:59 23:59 Intake Total 1000 / 1000 3068.75 / 3068.75 958.27 / 958.27 Balance 1000 / 1000 3068.75 / 3068.75 958.27 / 958.27 Medical Nutrition Assessment Dietitian: Malnutrition Criteria Met Start: 11/11/21 14:42 Freq: Status: Active Protocol: Document 11/11/21 14:43 LO (Rec: 11/11/21 14:43 [id number]) Nutrition Malnutrition Evidence of Malnutrition Exists Yes Malnutrition (severe): Chronic Evidenced By Suboptimal Energy Intake ( Severe),Weight Loss (Severe), Physical Changes (Severe) Clinical Problem Chronic Disease or Condition Related Malnutrition Etiology severe, related to newly diagnosed liver mass and ileus , nausea and decreased appetite Signs/Symptoms as evidenced by 5.6% weight loss in 1 month, <75% PO intake of estimated energy needs for 1 month, and severe fat and muscle wasting to temporal and orbital regions Status Active Problem Lab / Micro Data Result Diagrams: 11/11/21 05:35 11/11/21 05:35 Labs: Laboratory Results - last 24 hr 11/11/21 13:40: PT Cancelled, INR Cancelled, APTT Cancelled 11/11/21 14:23: PT 15.9 H, INR 1.3, APTT 42.3 H 11/11/21 21:20: APTT 62.5 H 11/12/21 03:26: APTT 66.7 H 11/12/21 03:26: Total Bilirubin 1.40 H, Direct Bilirubin 0.46 H, AST 68 H, ALT 27, Alkaline Phosphatase 65, Total Protein 5.8 L, Albumin 2.8 L, Globulin 3.0 11/12/21 09:17: APTT 68.3 H Radiography Diagnostic Testing: Radiology Impression Abdomen MRI 11/11/21 05:55 IMPRESSION: Cirrhosis with a large mass of the lateral segment of the left lobe of the liver worrisome for hepatocellular carcinoma or less likely solitary metastasis. Significant mass effect with enlargement of virtually the entire lateral segment left lobe and associated tumor or bland thrombus within the left portal vein extending to the main portal vein confluence. N.B. : The above Results were Read Back by Ross Centeno MD to MD Dawood, and understanding confirmed on 11/11/2021 12:14:26 (ET). Electronically Signed: Ross Centeno MD at 11:56 EDT , Physical Exam Narrative Physical exam General: Alert, Oriented x3, Cooperative, BMI 24.6 kg per metered square HEENT: Atraumatic, PERRLA, EOMI, Normocephalic Oral: No Gingival or Mucosal Lesions/ Ulcerations Neck: Supple, No JVD, Negative Carotid Bruits Lungs: Air entry diminished in bilateral lung bases. No crepitation/rhonchi Cardiovascular: Regular rate, Regular Rhythm, Normal S1, Normal S2, No murmurs Abdomen: Soft, abdomen distended, ascites with fluid thrill. Nontender. Bowel Sounds Present : No renal angle tenderness. No suprapubic tenderness. Extremities: No edema, Capillary Refill Less than 3 Seconds Skin: No rashes, No breakdown Musculoskeletal: No Tenderness to Palpation of Joints or Extremities. Moderate muscle atrophy of extremities Neurological: Cranial nerves II-XII grossly intact, DTR 2+/4 and Symmetrical, Neuro grossly intact. Muscle strength 4+/5 at major joints of lower extremities Psych/Mental Status: Flat affect Assessment & Plan Assessment/Plan (1) Hepatic tumor: (2) Ileus: PLAN: Plan This is a 80-year-old gentleman was admitted with abdominal pain ongoing for about 1 month along with cramping and bloating. He has had constipation, lost about 10 pounds last few months. 1.? Very high probability of HCC with portal vein thrombosis/tumor thrombosis: Patient admitted to [facility] floor with abdominal pain, distention and nausea.? On pain control Zofran and clear liquid. The radiologist called me about the critical finding MRI abdomen which was done triple phase for HCC protocol. 11/11: CT abdomen and MRI abdomen individually reviewed.CT abdomen and pelvis showed a poorly defined large mass in the left liver lobe extending into the claudia hepatis, occluding the poratl vein with associated cavernouos transformation suspicious for hepatoma, and mild diffuse mesenteric edema and moderate amount of ascites, as well as nonspecific gastritis and diffuse mild ileus. ? MRI abdomen shows large liver mass in the lateral segment of left lobe, highly concerning for HCC with mass-effect in the whole left lobe.? Associated tumor thrombus in left portal vein extending to main portal vein confluence.? Patient is started on IV heparin drip without bolus as he got enoxaparin 40 mg in the morning. Discussed with the environmental services technician.? The patient does not satisfy [place] criteria because of tumor thrombosis.? Patient liver is cirrhotic with portal vein thrombosis therefore not a good candidate for liver resection with increased age.? He might be candidate for palliative sorafenib.? Patient does not want to go to tertiary care for further opinion regarding options of treatment and tumor board recommendation.? He wants to get treated in [place] 11/12: Called and interventional radiologist for diagnostic paracentesis. They c ould not do it because of busy schedule of father's patients. We will do bedside under ultrasound guidance at 1 PM tomorrow. Stop heparin drip at 6 AM. GI consult reviewed. 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 Try to manage conservatively decompress cirrhosis, lactulose for encephalopathy sodium restriction diuretic paracentesis and endoscopic surveillance for varices. This was discussed with the patient and the son present in the room. 2.? #CAD s/p stents: on aspirin, statin and carvedilol 3.? #History of hepatitis C * diagnosed 3 years ago after he had abnormal liver enzymes on routine labs, and further workup done showed he had hepatitis C. * he completed 3 months of treatment by gastroenterology, and says he was told the virus had cleared. * he doesnt know how long he had it for, and denies any history of blood transfusions or IV drug use. Son thinks patient may have gotten it from his . * This is the most obvious risk factor for liver cancerThis can be treated as an outpatient. #Hyperlipidemia: on statin #Hypertension; on carvedilol and lisinopril #Wide complex tachycardia #Ischemic cardiomyopathy: on aspirin, statin and carvedilol Acute protein calorie malnutrition mostly due to liver mass with high probability of HCC DVT prophylaxis: lovenox COde status: full code * Patient counseled extensively about different types of CODE STATUS including full code, DNR CCA and DNR CCA. Patient initially didnt want CPR, but admitted to intubation. He subsequently agreed to CPR if needed. COde status is therefore full code. Total time of the visit including total time spent in counseling or coordination of care, (more than 50% of the total time, spent in obtaining medical inf ormation from nurses and other ancillary care providers,explaining to the patient about labs, imaging, diagnosis and management of active complex medical conditions), discussion of the patient regarding anatomy, tumor biology and treatment options of HCC, review of labs and imaging and discussion with environmental services technician is? 40 minutes. Clinical Impression(s) from Imaging Studies Abdomen/Pelvis CT? 11/10/21 16:18 IMPRESSION: Diffuse hepatocellular disease and splenomegaly. Since prior study there has been interval development of a poorly defined large mass in left lobe of liver extending into the claudia hepatis occluding the portal vein with associated cavernous transformation suspicious for hepatoma.? There are other tiny hypoattenuated densities possibly cysts which are unchanged since prior study.? There is also associated mild diffuse mesenteric edema and moderate amount of ascites. MRI of the liver with and without contrast would be helpful for more definitive evaluation Findings which may be consistent with nonspecific gastritis and diffuse mild ileus with fecal retention in the colon. ? Electronically Signed: Bruce Cleary MD at 17:30 EDT , ? Abdomen MRI? 11/11/21 05:55 IMPRESSION: Cirrhosis with a large mass of the lateral segment of the left lobe of the liver worrisome for hepatocellular carcinoma or less likely solitary metastasis.? Significant mass effect with enlargement of virtually the entire lateral segment left lobe and associated tumor or bland thrombus within the left portal vein extending to the main portal vein confluence. ? Charges/Coding Visit Charges Inpatient E&M: 42271 Subs Hosp L3
[2021-11-12] MEDS: HEPARIN/D5w 25,000 UNITS 25,000 UNITS/250 ML IV.SOLN. 8 UNITS CONT INF (12:45)
[2021-11-12 13:58] LABS: Partial Thromboplast Time 46.2 Seconds (24.1-36.2)
[2021-11-12] MEDS: Ondansetron 4 MG/2 ML Vial IV (16:17)
[2021-11-12] MEDS: 0.9% Saline Lock 10 ML Syringe IV (16:19)
[2021-11-12] MEDS: Ciprofloxacin 250 MG Tablet 750 MG PO (18:19)
[2021-11-12 20:11] VITALS: BP 133/82; PULSE 61; RESP 16; TEMP 36.8; O2SAT 93
[2021-11-12 21:40] LABS: Partial Thromboplast Time 74.5 Seconds (24.1-36.2)
[2021-11-12] MEDS: Atorvastatin Calcium 40 MG Tablet PO (21:58)
--- NOTE | 2021-11-12 23:38 | NURSING ---
Pts APTT came back at 74.5 @ 2100 on 11/12/21. Per IV heparin titration protocol I decreased the rate to 8ml/hr from 9ml/hr and scheduled the next APTT draw for 0400 on 11/13/21.
[2021-11-13] MEDS: HEPARIN/D5w 25,000 UNITS 25,000 UNITS/250 ML IV.SOLN. 8 UNITS CONT INF (01:31)
[2021-11-13 03:14] VITALS: BP 135/79; PULSE 74; RESP 16; TEMP 36.4; O2SAT 93
[2021-11-13 04:12] LABS: Absolute Lymphocyte Count 1.03 X10^3/uL (0.83-4.51); Absolute Neutrophil Count 2.9 X10^3/uL (2.0-7.7); Basophil# 0.04 X10^3/uL; Basophil% 0.8 % (0-1); Eosinophil# 0.23 X10^3/uL; Eosinophils% 4.7 % (0-5); Hematocrit 46.1 % (40-54); Hemoglobin 14.5 g/dL (13.0-16.5); Lymphocyte # 1.03 X10^3/ul (0.83-4.51); Lymphocyte % 21.2 % (19-41); Mean Corp Hgb Conc 31.5 g/dL (32-36); Mean Corpuscular Volume 85.7 fL (80-94); Mean Platelet Vol. 10.6 fl (6.2-12.0); Monocyte# 0.68 X10^3/uL; NRBC Flagged by Analyzer 0 % (0-5); Neutrophil # 2.87 X10^3/uL (2.7-7.7); Neutrophil % 59.1 % (47-70); Platelet Count 120 K/mm3 (150-450); RBC Distribution Width CV 14.7 % (11.6-14.6); RBC Distribution Width SD 45.6 fl (35.1-43.9); Red Blood Count 5.38 M/mm3 (4.6-6.2); White Blood Count 4.9 K/mm3 (4.4-11.0)
[2021-11-13 04:33] LABS: ALB/GLOB Ratio 0.9 RATIO (0.9-2.4); AST(SGOT) 70 U/L (15-37); Alanine Aminotransfer ALT/SGPT 29 U/L (16-61); Albumin, Serum 2.8 g/dL (3.2-5.0); Alkaline Phosphatase 68 U/L (45-117); Anion Gap 8 (5-15); BUN 4 mg/dL (7-18); Calcium,Total 8.6 mg/dL (8.5-10.1); Chloride 98 mmol/L (98-107); Creatinine, Serum 0.81 mg/dL (0.70-1.30); EST Glomerular Filtration Rate 98 mL/min (>60); Est Glom Filt Rate - Afr Amer 118 mL/min (>60); Estimated Creatinine Clearance 64.54 ml/min; Globulin 3.1 g/dL (2.2-4.2); Glucose 94 mg/dL (74-106); Potassium 4.3 mmol/L (3.5-5.1); Protein, Total 5.9 g/dL (6.4-8.2); Sodium Level 129 mmol/L (136-145)
[2021-11-13 04:38] LABS: Partial Thromboplast Time 58.9 Seconds (24.1-36.2)
[2021-11-13 08:15] VITALS: BP 128/73; PULSE 68; RESP 18; TEMP 36.7; O2SAT 95
--- NOTE | 2021-11-13 09:40 | DCINST_ITS ---
Discharge Instructions Diet Discharge Diet: 2000 mg Sodium Diet Dressing / Incision Call your doctor if you observe: Fever of 101 or Higher, Coldness, Increased Pain, Numbness or Tingling, Change in Color, Inability to urinate, Inability to have a bowel movement, Shortness of breath, Dizziness, Fainting spells, Swelling in the ankles, Chest pain, Prolonged hiccupping, Increased palpitations (irregular heartbeat) and Calf discomfort Follow Up Care Test Results: Test results from this visit will be discussed in further detail at your follow- up appointment, if applicable. Discharge Plan Admission Admit Date/Time: 11/10/21 19:49 Primary Reason for Your Visit: New diagnosis of HCC with ascites Attending Provider: Mohsen Seay Primary Care Provider: Doe Suárez Consulting Providers: Jelly Gutierrez Discharge Orders/Prescriptions Prescriptions: New lactulose 20 gram/30 mL Solution 20 g PO DAILY Qty: 1500 0RF ursodiol 250 mg Tablet 250 mg PO BID Qty: 60 0RF Continued finasteride 5 mg tablet 5 mg PO DAILY prednisolone acetate 1 DROP drops,suspension 1 drop EACH EYE DAILY carvedilol 3.125 mg tablet 3.125 mg PO BID lisinopril 2.5 mg tablet 2.5 mg PO DAILY atorvastatin 40 mg tablet 40 mg PO QHS Qty: 90 3RF Discontinued aspirin 81 MG tablet 81 mg PO DAILY@0800 0RF Referrals / Follow Up: Doe Suárez MD [Primary Care Provider] - Disposition Disposition (needs filled in before D/C Order can be placed): Home, Self Care
--- NOTE | 2021-11-13 09:40 | DS.PCM_ITS ---
Providers Date of Admission: 11/10/21 Date of Discharge: 11/13/21 Primary Care Physician: Dr. Doe Suárez MD Consultations 11/10/21 20:33 Consult: Gastroenterology Routine Consulting Provider: Jakob Gastroenter[facility] Reason for Consult: liver mass EMERGENT Consult: No MD Notified: Yes Date Notified: 11/10/21 Time Notified: 19:51 Method of Notification: Text Reason For Visit: LIVER MASS Diagnosis Discharge Diagnosis (1) Hepatic tumor: Status: Acute Code(s): D49.0 - Neoplasm of unspecified behavior of digestive system (2) Ileus: Status: Acute Code(s): K56.7 - Ileus, unspecified Medications at Discharge Home Medications atorvastatin 40 mg tablet 40 mg PO QHS #90 tabs 09/20/21 carvedilol 3.125 mg tablet 3.125 mg PO BID bp 11/10/21 finasteride 5 mg tablet 5 mg PO DAILY 11/10/21 lisinopril 2.5 mg tablet 2.5 mg PO DAILY bp 11/10/21 prednisolone acetate 1 % eye drops,suspension 1 drop EACH EYE DAILY Check with primary doctor 11/10/21 lactulose 20 gram/30 mL oral solution 20 g (30 mL) PO DAILY #1,500 mL 11/13/21 ursodiol 250 mg tablet 250 mg PO BID #60 tabs 11/13/21 Hospital Course Summary of Care Provided Hospital Course: This is a 80-year-old gentleman was admitted with abdominal pain ongoing for about 1 month along with cramping and bloating. He has had constipation, lost about 10 pounds last few months. 1.? Very high probability of HCC with portal vein thrombosis/tumor thrombosis: Patient admitted to [facility] floor with abdominal pain, distention and nausea.? On pain control Zofran and clear liquid. The radiologist called me about the critical finding MRI abdomen which was done triple phase for HCC protocol. 11/11: CT abdomen and MRI abdomen individually reviewed.CT abdomen and pelvis showed a poorly defined large mass in the left liver lobe extending into the claudia hepatis, occluding the poratl vein with associated cavernouos transformation suspicious for hepatoma, and mild diffuse mesenteric edema and moderate amount of ascites, as well as nonspecific gastritis and diffuse mild ileus. ? MRI abdomen shows large liver mass in the lateral segment of left lobe, highly concerning for HCC with mass-effect in the whole left lobe.? Associated tumor thrombus in left portal vein extending to main portal vein confluence.? Patient is started on IV heparin drip without bolus as he got enoxaparin 40 mg in the morning. Discussed with the life science technician.? The patient does not satisfy [place] criteria because of tumor thrombosis.? Patient liver is cirrhotic with portal vein thrombosis therefore not a good candidate for liver resection with increased age.? He might be candidate for palliative sorafenib.? Patient does not want to go to tertiary care for further opinion regarding options of treatment and tumor board recommendation.? He wants to get treated in [place] 11/12: Called and interventional radiologist for diagnostic paracentesis. They could not do it because of busy schedule of father's patients. We will do bedside under ultrasound guidance at 1 PM tomorrow. Stop heparin drip at 6 AM. GI consult reviewed. 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 Try to manage conservatively decompress cirrhosis, lactulose for encephalopathy sodium restriction diuretic paracentesis and endoscopic surveillance for varices. This was discussed with the patient and the son present in the room. 11/13: 2.? #CAD s/p stents: on aspirin, statin and carvedilol 3.? #History of hepatitis C * diagnosed 3 years ago after he had abnormal liver enzymes on routine labs, and further workup done showed he had hepatitis C. * he completed 3 months of treatment by gastroenterology, and says he was told the virus had cleared. * he doesnt know how long he had it for, and denies any history of blood transfusions or IV drug use. Son thinks patient may have gotten it from his . * This is the most obvious risk factor for liver cancerThis can be treated as an outpatient. #Hyperlipidemia: on statin #Hypertension; on carvedilol and lisinopril #Wide complex tachycardia #Ischemic cardiomyopathy: on aspirin, statin and carvedilol Acute protein calorie malnutrition mostly due to liver mass with high probability of HCC DVT prophylaxis: lovenox COde status: full code * Patient counseled extensively about different types of CODE STATUS including full code, DNR CCA and DNR CCA. Patient initially didnt want CPR, but admitted to intubation. He subsequently agreed to CPR if needed. COde status is therefore full code. Total time of the visit including total time spent in counseling or coordination of care, (more than 50% of the total time, spent in obtaining medical information from nurses and other ancillary care providers,explaining to the patient about labs, imaging, diagnosis and management of active complex medical conditions), discussion of the patient regarding anatomy, tumor biology and treatment options of HCC, review of labs and imaging and discussion with life science technician is? 40 minutes. Clinical Impression(s) from Imaging Studies Abdomen/Pelvis CT? 11/10/21 16:18 IMPRESSION: Diffuse hepatocellular disease and splenomegaly. Since prior study there has been interval development of a poorly defined large mass in left lobe of liver extending into the claudia hepatis occluding the portal vein with associated cavernous transformation suspicious for hepatoma.? There are other tiny hypoattenuated densities possibly cysts which are unchanged since prior study.? There is also associated mild diffuse mesenteric edema and moderate amount of ascites. MRI of the liver with and without contrast would be helpful for more definitive evaluation Findings which may be consistent with nonspecific gastritis and diffuse mild ileus with fecal retention in the colon. ? Electronically Signed: Bruce Cleary MD at 17:30 EDT , ? Abdomen MRI? 11/11/21 05:55 IMPRESSION: Cirrhosis with a large mass of the lateral segment of the left lobe of the liver worrisome for hepatocellular carcinoma or less likely solitary metastasis.? Significant mass effect with enlargement of virtually the entire lateral segment left lobe and associated tumor or bland thrombus within the left portal vein extending to the main portal vein confluence. ? Physical Exam Narrative Seen and examined on the day of discharge. Patient very hesitant of starting on blood thinner. Different options discussed including Xarelto Eliquis Lovenox with risk of bleeding in view of cirrhosis, thrombocytopenia and mild elevated bilirubin. Physical exam General: Alert, Oriented x3, Cooperative, BMI 24.6 kg per metered square HEENT: Atraumatic, PERRLA, EOMI, Normocephalic Oral: No Gingival or Mucosal Lesions/ Ulcerations Neck: Supple, No JVD, Negative Carotid Bruits Lungs: Air entry diminished in bilateral lung bases. No crepitation/rhonchi Cardiovascular: Regular rate, Regular Rhythm, Normal S1, Normal S2, No murmurs Abdomen: Soft, abdomen distended, ascites with fluid thrill. Nontender. Bowel Sounds Present : No renal angle tenderness. No suprapubic tenderness. Extremities: No edema, Capillary Refill Less than 3 Seconds Skin: No rashes, No breakdown Musculoskeletal: No Tenderness to Palpation of Joints or Extremities. Moderate muscle atrophy of extremities Neurological: Cranial nerves II-XII grossly intact, DTR 2+/4 and Symmetrical. Muscle strength 4+/5 at major joints of lower extremities Psych/Mental Status: Flat affect Medical Records Data Medical Nutrition Assessment Dietitian: Malnutrition Criteria Met Start: 11/11/21 14:42 Freq: Status: Active Protocol: Document 11/11/21 14:43 LO (Rec: 11/11/21 14:43 [id number]) Nutrition Malnutrition Evidence of Malnutrition Exists Yes Malnutrition (severe): Chronic Evidenced By Suboptimal Energy Intake ( Severe),Weight Loss (Severe), Physical Changes (Severe) Clinical Problem Chronic Disease or Condition Related Malnutrition Etiology severe, related to newly diagnosed liver mass and ileus , nausea and decreased appetite Signs/Symptoms as evidenced by 5.6% weight loss in 1 month, <75% PO intake of estimated energy needs for 1 month, and severe fat and muscle wasting to temporal and orbital regions Status Active Problem Weight / BMI Weight Weight: 152 lb 12.485 oz Body Mass Index (BMI) 24.5 ABG / Lab / Microbiology Data Result Diagrams: 11/13/21 04:00 11/13/21 04:00 Laboratory: Laboratory Results - last 24 hr 11/12/21 03:26: Total Bilirubin 1.40 H, Direct Bilirubin 0.46 H, AST 68 H, ALT 27, Alkaline Phosphatase 65, Total Protein 5.8 L, Albumin 2.8 L, Globulin 3.0 11/12/21 13:40: APTT 46.2 H 11/12/21 21:00: APTT 74.5 H 11/13/21 04:00: WBC 4.9, RBC 5.38, Hgb 14.5, Hct 46.1, MCV 85.7, MCH 27.0, MCHC 31.5 L, RDW Std Deviation 45.6 H, RDW Coeff of [place] 14.7 H, Plt Count 120 L, MPV 10.6, Immature Gran % (Auto) 0.200, Neut % (Auto) 59.1, Lymph % (Auto) 21.2, [place] % (Auto) 14.0 H, Eos % (Auto) 4.7, Baso % (Auto) 0.8, Absolute Neuts (auto) 2.9, Absolute Lymphs (auto) 1.03, Nucleated RBC % 0 11/13/21 04:00: Sodium 129 L, Potassium 4.3, Chloride 98, Carbon Dioxide 23.0, Anion Gap 8, BUN 4 L, Creatinine 0.81, Estim Creat Clear Calc 64.54, Est GFR (MDRD) Af Amer 118, Est GFR (MDRD) Non-Af 98, BUN/Creatinine Ratio 5.0 L, Glucose 94, Calcium 8.6, Total Bilirubin 1.40 H, AST 70 H, ALT 29, Alkaline Phosphatase 68, Total Protein 5.9 L, Albumin 2.8 L, Globulin 3.1, Albumin/Globulin Ratio 0.9 11/13/21 04:00: APTT 58.9 H D/C Instructions Discharge Diet: 2000 mg Sodium Diet Discharge Plan Admission Admit Date/Time: 11/10/21 19:49 Primary Reason for Your Visit: New diagnosis of HCC with ascites Attending Provider: Mohsen Seay Primary Care Provider: Doe Suárez Consulting Providers: Jelly Gutierrez Discharge Orders/Prescriptions Prescriptions: New lactulose 20 gram/30 mL Solution 20 g PO DAILY Qty: 1500 0RF ursodiol 250 mg Tablet 250 mg PO BID Qty: 60 0RF Continued finasteride 5 mg tablet 5 mg PO DAILY prednisolone acetate 1 DROP drops,suspension 1 drop EACH EYE DAILY carvedilol 3.125 mg tablet 3.125 mg PO BID lisinopril 2.5 mg tablet 2.5 mg PO DAILY atorvastatin 40 mg tablet 40 mg PO QHS Qty: 90 3RF Discontinued aspirin 81 MG tablet 81 mg PO DAILY@0800 0RF Referrals / Follow Up: Doe Suárez MD [Primary Care Provider] - Disposition Disposition (needs filled in before D/C Order can be placed): Home, Self Care Charges/Coding Visit Charges Inpatient E&M: 82120 Subs Hosp L3
[2021-11-13] MEDS: Lactulose 20 GM/30 ML UDC PO (10:46)
[2021-11-13] MEDS: Finasteride 5 MG Tablet PO (10:46)
[2021-11-13] MEDS: Lisinopril 2.5 MG Tablet PO (10:46)
[2021-11-13] MEDS: Ursodiol 250 MG Tablet PO ×2 (10:47→21:04)
[2021-11-13] MEDS: prednisoLONE eye drops (5 mL) 1 DROP OPTH.BTL 1 DRP EACH EYE (10:47)
[2021-11-13] MEDS: Ensure Clear 120 ML Liquid PO (10:48)
[2021-11-13] MEDS: Carvedilol 3.125 MG TABLET PO ×2 (10:48→21:04)
--- NOTE | 2021-11-13 13:00 | US_ITS ---
PROCEDURE: Ultrasound guided paracentesis. DATE OF EXAMINATION: 11/13/2021. INDICATION: Male, 81 years old. Ascites. PHYSICIAN: Oleg Leon M.D. TECHNIQUE: The risks, benefits, and alternatives to the procedure were explained to the patient. The specific risks of bleeding, infection, and damage to bowel were detailed and accepted. Witnessed informed consent was obtained. The abdomen was ultrasonographically surveyed. An appropriate pocket of fluid was identified at the right lower quadrant. The skin were cleaned and prepped in the usual sterile fashion. Using ultrasound guidance, the peritoneal cavity was accessed with a 5-Dutch paracentesis needle/catheter system. The trocar was removed. A small pocket of fluid is seen in the left lower quadrant. Unsuccessful paracentesis. The catheter was removed and a sterile dressing was applied. The procedure was well tolerated. US/Paracentesis with US IMPRESSION: Small pocket of fluid in the left lower quadrant. Unsuccessful paracentesis. Electronically Signed: Oleg Leon MD at 8:22 EDT ,
[2021-11-13] MEDS: Lidocaine 2% (20 ml mdv) 20 ML Vial INFILT (14:24)
[2021-11-13 14:25] VITALS: BP 149/77; PULSE 70; RESP 18; TEMP 37.2; O2SAT 98
--- NOTE | 2021-11-13 14:25 | PN.HOSP_ITS ---
Objective Data Objective Data Vital Signs: Vital Signs Temp Pulse Resp BP Pulse Ox O2 Del Method 98.1 F 68 18 128/73 H 95 Room Air 11/13/21 08:15 11/13/21 08:15 11/13/21 08:15 11/13/21 08:15 11/13/21 08:15 11/13/21 09:00 Oxygen Delivery Method Room Air Weight: 152 lb 12.485 oz Body Mass Index (BMI) 24.5 Intake & Output: Intake and Output for Last 24 Hours 11/11/21 11/12/21 11/13/21 23:59 23:59 23:59 Intake Total 3068.75 / 3068.75 1337.94 / 1337.94 606.86 / 606.86 Balance 3068.75 / 3068.75 1337.94 / 1337.94 606.86 / 606.86 Medical Nutrition Assessment Dietitian: Malnutrition Criteria Met Start: 11/11/21 14:42 Freq: Status: Active Protocol: Document 11/11/21 14:43 LO (Rec: 11/11/21 14:43 LO [id number]) Nutrition Malnutrition Evidence of Malnutrition Exists Yes Malnutrition (severe): Chronic Evidenced By Suboptimal Energy Intake ( Severe),Weight Loss (Severe), Physical Changes (Severe) Clinical Problem Chronic Disease or Condition Related Malnutrition Etiology severe, related to newly diagnosed liver mass and ileus , nausea and decreased appetite Signs/Symptoms as evidenced by 5.6% weight loss in 1 month, <75% PO intake of estimated energy needs for 1 month, and severe fat and muscle wasting to temporal and orbital regions Status Active Problem Lab / Micro Data Result Diagrams: 11/13/21 04:00 11/13/21 04:00 Labs: Laboratory Results - last 24 hr 11/12/21 21:00: APTT 74.5 H 11/13/21 04:00: WBC 4.9, RBC 5.38, Hgb 14.5, Hct 46.1, MCV 85.7, MCH 27.0, MCHC 31.5 L, RDW Std Deviation 45.6 H, RDW Coeff of Nixon 14.7 H, Plt Count 120 L, MPV 10.6, Immature Gran % (Auto) 0.200, Neut % (Auto) 59.1, Lymph % (Auto) 21.2, Butler % (Auto) 14.0 H, Eos % (Auto) 4.7, Baso % (Auto) 0.8, Absolute Neuts (auto) 2.9, Absolute Lymphs (auto) 1.03, Nucleated RBC % 0 11/13/21 04:00: Sodium 129 L, Potassium 4.3, Chloride 98, Carbon Dioxide 23.0, Anion Gap 8, BUN 4 L, Creatinine 0.81, Estim Creat Clear Calc 64.54, Est GFR (MDRD) Af Amer 118, Est GFR (MDRD) Non-Af 98, BUN/Creatinine Ratio 5.0 L, Glucose 94, Calcium 8.6, Total Bilirubin 1.40 H, AST 70 H, ALT 29, Alkaline Phosphatase 68, Total Protein 5.9 L, Albumin 2.8 L, Globulin 3.1, Albumin/Globulin Ratio 0.9 11/13/21 04:00: APTT 58.9 H Physical Exam Narrative Physical exam General: Alert, Oriented x3, Cooperative, BMI 24.6 kg per metered square HEENT: Atraumatic, PERRLA, EOMI, Normocephalic Oral: No Gingival or Mucosal Lesions/ Ulcerations Neck: Supple, No JVD, Negative Carotid Bruits Lungs:? Air entry diminished in bilateral lung bases.? No crepitation/rhonchi Cardiovascular: Regular rate, Regular Rhythm, Normal S1, Normal S2, No murmurs Abdomen: Soft, abdomen distended, ascites with fluid thrill.? Nontender.? Bowel Sounds Present : No renal angle tenderness.? No suprapubic tenderness. Extremities: No edema, Capillary Refill Less than 3 Seconds Skin: No rashes, No breakdown Musculoskeletal: No Tenderness to Palpation of Joints or Extremities.? Moderate muscle atrophy of extremities Neurological: Cranial nerves II-XII grossly intact, DTR? 2+/4 and Symmetrical, Neuro grossly intact.? Muscle strength 4+/5 at major joints of lower extremities Psych/Mental Status: Flat affect Assessment & Plan Assessment/Plan (1) Hepatic tumor: PLAN: This is a 80-year-old gentleman was admitted with abdominal pain ongoing for about 1 month along with cramping and bloating.? He has had constipation, lost about 10 pounds last few months. 1.? HCC with portal vein thrombosis/tumor thrombosis: Patient admitted to [facility] floor with abdominal pain, distention and nausea.? On pain control Zofran and clear liquid. The radiologist called me about the critical finding MRI abdomen which was done triple phase for HCC protocol. 11/11: CT abdomen and MRI abdomen individually reviewed.CT abdomen and pelvis showed a poorly defined large mass in the left liver lobe extending into the claudia hepatis, occluding the poratl vein with associated cavernouos transformation suspicious for hepatoma, and mild diffuse mesenteric edema and moderate amount of ascites, as well as nonspecific gastritis and diffuse mild ileus. ? MRI abdomen shows large liver mass in the lateral segment of left lobe, highly concerning for HCC with mass-effect in the whole left lobe.? Associated tumor thrombus in left portal vein extending to main portal vein confluence.? Patient is started on IV heparin drip without bolus as he got enoxaparin 40 mg in the morning. Discussed with the aluminum hydroxide process operator.? The patient does not satisfy Stephen criteria because of tumor thrombosis.? Patient liver is cirrhotic with portal vein thrombosis therefore not a good candidate for liver resection with increas ed age.? He might be candidate for palliative sorafenib.? Patient does not want to go to tertiary care for further opinion regarding options of treatment and tumor board recommendation.? He wants to get treated in [place] 11/12: Called and interventional radiologist for diagnostic paracentesis.? They could not do it because of busy schedule of father's patients.? We will do bedside under ultrasound guidance at 1 PM tomorrow.? Stop heparin drip at 6 AM.? GI consult reviewed.? Patient has decompensated cirrhosis with ascites and probably malignant ascites.? Try to manage conservatively decompress cirrhosis, lactulose for encephalopathy sodium restriction diuretic paracentesis and endoscopic surveillance for varices.? This was discussed with the patient and the son present in the room. 11/13: With informed consent I tried ultrasound-guided paracentesis on the left lower quadrant. Left lower quadrant pocket was identified but seems did not had enough fluid as it was unsuccessful after several 3 attempts. Therefore I left it. photo optics technician states he does not have enough fluid in left lower quadrant, right lower quadrant pocket is smaller than the left lower quadrant. Patient is perihepatic ascites. Mild splenomegaly. Discussed with Dr. Plunkett. Agreed with putting him on Lasix 20 mg daily, spironolactone 25 mg daily, Xifaxan 550 mg twice daily and pantoprazole 40-minute daily. Patient is already on lactulose. Eliquis 5 mg twice daily starting from tomorrow a.m. Patient is mild thrombocytopenia, platelet 120,000. Follow-up with Dr. Plunkett in 1 to 2 weeks. Plan for discharge tomorrow AM. Diagnosis and plan of management discussed with the patient and patient's son 2.? #CAD s/p stents: on aspirin, statin and carvedilol 3.? #History of hepatitis C * diagnosed 3 years ago after he had abnormal liver enzymes on routine labs, and further workup done showed he had hepatitis C. * he completed 3 months of treatment by gastroenterology, and says he was told the virus had cleared. * he doesnt know how long he had it for, and denies any history of blood transfusions or IV drug use. Son thinks patient may have gotten it from his . * This is the most obvious risk factor for liver cancerThis can be treated as an outpatient. #Hyperlipidemia: on statin #Hypertension; on carvedilol and lisinopril #Wide complex tachycardia #Ischemic cardiomyopathy: on aspirin, statin and carvedilol Acute protein calorie malnutrition mostly due to liver mass with high probability of HCC DVT prophylaxis: lovenox COde status: full code * Patient counseled extensively about different types of CODE STATUS including full code, DNR CCA and DNR CCA. Patient initially didnt want CPR, but admitted to intubation. He subsequently agreed to CPR if needed. COde status is therefore full code.Total time of the visit including total time spent in counseling or coordination of care, (more than 50% of the total time, spent in obtaining medical information from nurses and other ancillary care providers,explaining to the patient about labs, imaging, diagnosis and management of active complex medical conditions), discussion of the patient regarding anatomy, tumor biology and treatment options of HCC, review of labs and imaging and discussion with aluminum hydroxide process operator is? 40 minutes. (2) Ileus: Charges/Coding Visit Charges Inpatient E&M: 79824 Subs Hosp L3
--- NOTE | 2021-11-13 14:31 | PCM.OP.PRO ---
Procedure Report Date of Procedure: 11/13/21 Ultrasound-guided paracentesis Informed consent was taken for an ultrasound-guided paracentesis. Benefit and risk discussed. Risk of bleeding, infection, damage to nearby organ structure around left lower quadrant explained to the patient although risk less with ultrasound guided. With ultrasound, medium sized left lower quadrant fluid pocket was identified. Patient has perihepatic ascites. Right lower quadrant fluid pocket is smaller than left lower quadrant. Left lower quadrant was locally anesthetized with lidocaine 2%. With ultrasound guidance, left lower quadrant fluid pocket was entered but no fluid aspirated even after 2 paracentesis kit catheter and 1 long needle. Procedure was unsuccessful. No external bleeding, tenderness or hematoma. Dressing was Completed Assessment: Patient does not have enough acetic fluid pocket for successful paracentesis. Discussed with Dr. Kelly will follow clinically and if patient accumulates more fluid and tapable then can schedule outpatient diagnostic paracentesis. Procedures Hospitalists Procedures: Other Procedure - See Report
[2021-11-13] MEDS: Ciprofloxacin 250 MG Tablet 750 MG PO (17:30)
[2021-11-13] MEDS: Furosemide 20 MG Tablet PO (17:30)
[2021-11-13] MEDS: Spironolactone 25 MG Tablet PO (17:30)
[2021-11-13] MEDS: Pantoprazole Sodium 40 MG Tablet PO (17:30)
[2021-11-13 21:00] VITALS: BP 124/77; PULSE 67; RESP 18; TEMP 37.3; O2SAT 93
[2021-11-13] MEDS: Atorvastatin Calcium 40 MG Tablet PO (21:05)
[2021-11-13] MEDS: rifAXIMin 550 MG Tablet PO (21:05)
[2021-11-14 03:20] VITALS: BP 131/73; PULSE 92; RESP 18; TEMP 37.1; O2SAT 93
--- NOTE | 2021-11-14 08:09 | DCINST_ITS ---
Discharge Instructions Diet Discharge Diet: 2000 mg Sodium Diet Activity Discharge Activity: Return to Normal Activity and May Not Drive Dressing / Incision Call your doctor if you observe: Fever of 101 or Higher, Coldness, Increased Pain, Numbness or Tingling, Change in Color, Inability to urinate, Inability to have a bowel movement, Shortness of breath, Dizziness, Fainting spells, Swelling in the ankles, Chest pain, Prolonged hiccupping, Increased palpitations (irregular heartbeat), Calf discomfort and Uncontrolled pain Follow Up Care Test Results: Test results from this visit will be discussed in further detail at your follow- up appointment, if applicable. Discharge Plan Admission Admit Date/Time: 11/10/21 19:49 Primary Reason for Your Visit: New diagnosis of HCC with ascites Attending Provider: Mohsen Seay Primary Care Provider: Doe Suárez Consulting Providers: Jelly Gutierrez Discharge Orders/Prescriptions Prescriptions: New lactulose 20 gram/30 mL Solution 20 g PO DAILY Qty: 1500 0RF ursodiol 250 mg Tablet 250 mg PO BID Qty: 60 0RF Eliquis 5 mg Tablet 5 mg PO BID Qty: 60 1RF spironolactone 25 mg Tablet 25 mg PO DAILY Qty: 30 2RF pantoprazole 40 mg Tablet,Delayed Release (Dr/Ec) 40 mg PO DAILY Qty: 30 2RF furosemide 20 mg Tablet 20 mg PO DAILY Qty: 30 2RF Continued prednisolone acetate 1 DROP drops,suspension 1 drop EACH EYE DAILY carvedilol 3.125 mg tablet 3.125 mg PO BID lisinopril 2.5 mg tablet 2.5 mg PO DAILY finasteride 5 mg tablet 5 mg PO DAILY Qty: 30 2RF atorvastatin 40 mg tablet 40 mg PO QHS Qty: 90 3RF Discontinued aspirin 81 MG tablet 81 mg PO DAILY@0800 0RF Referrals / Follow Up: Doe Suárez MD [Primary Care Provider] - Disposition Disposition (needs filled in before D/C Order can be placed): Home, Self Care
[2021-11-14] MEDS: Spironolactone 25 MG Tablet PO (08:46)
[2021-11-14] MEDS: APIXABAN 5 MG TABLET PO (08:46)
[2021-11-14] MEDS: Ursodiol 250 MG Tablet PO (08:47)
[2021-11-14] MEDS: Carvedilol 3.125 MG TABLET PO (08:47)
[2021-11-14 08:55] VITALS: BP 133/78; PULSE 72; RESP 18; TEMP 36.6; O2SAT 95
[2021-11-14] MEDS: rifAXIMin 550 MG Tablet PO (08:57)
[2021-11-14] MEDS: Pantoprazole Sodium 40 MG Tablet PO (08:58)
[2021-11-14] MEDS: Finasteride 5 MG Tablet PO (08:58)
[2021-11-14] MEDS: prednisoLONE eye drops (5 mL) 1 DROP OPTH.BTL 1 DRP EACH EYE (08:59)
[2021-11-14] MEDS: Lisinopril 2.5 MG Tablet PO (08:59)
[2021-11-14] MEDS: Furosemide 20 MG Tablet PO (08:59)
[2021-11-14 09:00] VITALS: RESP 18
--- NOTE | 2021-11-14 11:28 | DS.PCM_ITS ---
Providers Date of Admission: 11/10/21 Date of Discharge: 11/14/21 Primary Care Physician: Dr. Doe Suárez MD Consultations 11/10/21 20:33 Consult: Gastroenterology Routine Consulting Provider: [facility] Reason for Consult: liver mass EMERGENT Consult: No MD Notified: Yes Date Notified: 11/10/21 Time Notified: 19:51 Method of Notification: Text Reason For Visit: LIVER MASS Diagnosis Discharge Diagnosis (1) Hepatic tumor: Status: Acute Code(s): D49.0 - Neoplasm of unspecified behavior of digestive system (2) Ileus: Status: Acute Code(s): K56.7 - Ileus, unspecified Medications at Discharge Home Medications atorvastatin 40 mg tablet 40 mg PO QHS #90 tabs 09/20/21 carvedilol 3.125 mg tablet 3.125 mg PO BID bp 11/10/21 lisinopril 2.5 mg tablet 2.5 mg PO DAILY bp 11/10/21 prednisolone acetate 1 % eye drops,suspension 1 drop EACH EYE DAILY Check with primary doctor 11/10/21 lactulose 20 gram/30 mL oral solution 20 g (30 mL) PO DAILY #1,500 mL 11/13/21 ursodiol 250 mg tablet 250 mg PO BID #60 tabs 11/13/21 apixaban 5 mg tablet (Eliquis) 5 mg PO BID #60 tabs 11/14/21 finasteride 5 mg tablet 5 mg PO DAILY #30 tabs 11/14/21 furosemide 20 mg tablet 20 mg PO DAILY #30 tabs 11/14/21 pantoprazole 40 mg tablet,delayed release 40 mg PO DAILY #30 tabs 11/14/21 spironolactone 25 mg tablet 25 mg PO DAILY #30 tabs 11/14/21 Hospital Course Summary of Care Provided Hospital Course: This is a 80-year-old gentleman was admitted with abdominal pain ongoing for about 1 month along with cramping and bloating.? He has had constipation, lost about 10 pounds last few months. 1.? HCC with portal vein thrombosis/tumor thrombosis: [facility] with abdominal pain, distention and nausea.? On pain control Zofran and clear liquid. The radiologist called me about the critical finding MRI abdomen which was done triple phase for HCC protocol. 9/8: CT abdomen and MRI abdomen individually reviewed.CT abdomen and pelvis showed a poorly defined large mass in the left liver lobe extending into the claudia hepatis, occluding the poratl vein with associated cavernouos transformation suspicious for hepatoma, and mild diffuse mesenteric edema and moderate amount of ascites, as well as nonspecific gastritis and diffuse mild ileus. ? MRI abdomen shows large liver mass in the lateral segment of left lobe, highly concerning for HCC with mass-effect in the whole left lobe.? Associated tumor thrombus in left portal vein extending to main portal vein confluence.? Patient is started on IV heparin drip without bolus as he got enoxaparin 40 mg in the morning. Discussed with the loom starter.? The patient does not satisfy Stephen criteria because of tumor thrombosis.? Patient liver is cirrhotic with portal vein thrombosis therefore not a good candidate for liver resection with increased age.? He might be candidate for palliative sorafenib.? Patient does not want to go to tertiary care for further opinion regarding options of treatment and tumor board recommendation.? He wants to get treated in [place] 11/12: Called and interventional radiologist for diagnostic paracentesis.? They could not do it because of busy schedule of father's patients.? We will do bedside under ultrasound guidance at 1 PM tomorrow.? Stop heparin drip at 6 AM.? GI consult reviewed.? Patient has decompensated cirrhosis with ascites and probably malignant ascites.? Try to manage conservatively decompress cirrhosis, lactulose for encephalopathy sodium restriction diuretic paracentesis and endoscopic surveillance for varices.? This was discussed with the patient and the son present in the room. 11/13: With informed consent I tried ultrasound-guided paracentesis on the left lower quadrant. Left lower quadrant pocket was identified but seems did not had enough fluid as it was unsuccessful after several 3 attempts. Therefore I left it. administrative technician states he does not have enough fluid in left lower quadrant, right lower quadrant pocket is smaller than the left lower quadrant. Patient is perihepatic ascites. Mild splenomegaly. Discussed with Dr. Plunkett. Agreed with putting him on Lasix 20 mg daily, spironolactone 25 mg daily, Xifaxan 550 mg twice daily and pantoprazole 40- minute daily. Patient is already on lactulose. Eliquis 5 mg twice daily starting from tomorrow a.m. Patient is mild thrombocytopenia, platelet 120,000. Follow-up with Dr. Plunkett in 1 to 2 weeks. Plan for discharge tomorrow AM. Diagnosis and plan of management discussed with the patient and patient's son 11/14: Prescription given for Lasix, spironolactone, Protonix, lactulose, Eliquis. His rifaximin is not covered for might need prior authorization. Rest as mentioned above. 2.? #CAD s/p stents: on aspirin, statin and carvedilol 3.? #History of hepatitis C * diagnosed 3 years ago after he had abnormal liver enzymes on routine labs, and further workup done showed he had hepatitis C. * he completed 3 months of treatment by gastroenterology, and says he was told the virus had cleared. * Follows with Dr. Plunkett as an outpatient. If increasing HCVRNA will need to repeat treatment. #Hyperlipidemia: on statin #Hypertension; on carvedilol and lisinopril #Wide complex tachycardia #Ischemic cardiomyopathy: on aspirin, statin and carvedilol Acute protein calorie malnutrition mostly due to liver mass with high probabilit y of HCC BPH: Prescription of finasteride sent to patient's mail pharmacy [facility]. DVT prophylaxis: lovenox COde status: full code Discharge medication reconciliation done. Discharge follow-up instructions completed. Discharge process discussed with the patient and all questions were answered to patient's satisfaction. Follow with Dr. Plunkett in 2-week. Discharged home. Total time spent, exact 35 minutes on discharge meds reconciliation, examination, coordination of care with nurses and ancillary staff, review of imaging and blood test and discussion with the patient on follow-up instructions. Physical Exam Narrative Seen and examined on the day of discharge. Patient is doing good. No acute tenderness bleeding or hematoma at the site of attempted paracentesis. Physical exam General: Alert, Oriented x3, Cooperative, BMI 24.6 kg per metered square HEENT: Atraumatic, PERRLA, EOMI, Normocephalic Oral: No Gingival or Mucosal Lesions/ Ulcerations Neck: Supple, No JVD, Negative Carotid Bruits Lungs:? Air entry diminished in bilateral lung bases.? No crepitation/rhonchi Cardiovascular: Regular rate, Regular Rhythm, Normal S1, Normal S2, No murmurs Abdomen: Soft, abdomen distended, mild ascites. Nontender.? Bowel Sounds Present. Failed paracentesis on 11/12. : No renal angle tenderness.? No suprapubic tenderness. Extremities: No edema, Capillary Refill Less than 3 Seconds Skin: No rashes, No breakdown Musculoskeletal: No Tenderness to Palpation of Joints or Extremities.? Moderate muscle atrophy of extremities Neurological: Cranial nerves II-XII grossly intact, DTR? 2+/4 and Symmetrical, Neuro grossly intact.? Muscle strength 4+/5 at major joints of lower extremities Psych/Mental Status: Flat affect Medical Records Data Medical Nutrition Assessment Dietitian: Malnutrition Criteria Met Start: 11/11/21 14:42 Freq: Status: Active Protocol: Document 11/11/21 14:43 LO (Rec: 11/11/21 14:43 LO [id number]) Nutrition Malnutrition Evidence of Malnutrition Exists Yes Malnutrition (severe): Chronic Evidenced By Suboptimal Energy Intake ( Severe),Weight Loss (Severe), Physical Changes (Severe) Clinical Problem Chronic Disease or Condition Related Malnutrition Etiology severe, related to newly diagnosed liver mass and ileus , nausea and decreased appetite Signs/Symptoms as evidenced by 5.6% weight loss in 1 month, <75% PO intake of estimated energy needs for 1 month, and severe fat and muscle wasting to temporal and orbital regions Status Active Problem Weight / BMI Weight Weight: 152 lb 12.485 oz Body Mass Index (BMI) 24.5 ABG / Lab / Microbiology Data Result Diagrams: 11/13/21 04:00 11/13/21 04:00 Laboratory: Laboratory Results - last 24 hr 11/11/21 05:35: Tumor Marker AFP 88504.0 H D/C Instructions Discharge Diet: 2000 mg Sodium Diet Call your doctor if you observe: Fever of 101 or Higher, Coldness, Increased Pain, Numbness or Tingling, Change in Color, Inability to urinate, Inability to have a bowel movement, Shortness of breath, Dizziness, Fainting spells, Swelling in the ankles, Chest pain, Prolonged hiccupping, Increased palpitations (irregular heartbeat), Calf discomfort and Uncontrolled pain Meaningful Use Info Meaningful Use Diagnoses (Choose all that apply): None applicable Discharge Plan Admission Admit Date/Time: 11/10/21 19:49 Primary Reason for Your Visit: New diagnosis of HCC with ascites Attending Provider: Mohsen Seay Primary Care Provider: Doe Suárez Consulting Providers: Jelly Gutierrez Discharge Orders/Prescriptions Prescriptions: New lactulose 20 gram/30 mL Solution 20 g PO DAILY Qty: 1500 0RF ursodiol 250 mg Tablet 250 mg PO BID Qty: 60 0RF Eliquis 5 mg Tablet 5 mg PO BID Qty: 60 1RF spironolactone 25 mg Tablet 25 mg PO DAILY Qty: 30 2RF pantoprazole 40 mg Tablet,Delayed Release (Dr/Ec) 40 mg PO DAILY Qty: 30 2RF furosemide 20 mg Tablet 20 mg PO DAILY Qty: 30 2RF Continued prednisolone acetate 1 DROP drops,suspension 1 drop EACH EYE DAILY carvedilol 3.125 mg tablet 3.125 mg PO BID lisinopril 2.5 mg tablet 2.5 mg PO DAILY finasteride 5 mg tablet 5 mg PO DAILY Qty: 30 2RF atorvastatin 40 mg tablet 40 mg PO QHS Qty: 90 3RF Discontinued aspirin 81 MG tablet 81 mg PO DAILY@0800 0RF Referrals / Follow Up: Doe Suárez MD [Primary Care Provider] - Disposition Disposition (needs filled in before D/C Order can be placed): Home, Self Care Charges/Coding Visit Charges Inpatient E&M: 95794 Disch Hosp
[2021-11-14 11:41] VITALS: BP 138/67; PULSE 70; RESP 18; TEMP 36.8; O2SAT 95
== END 2021-11-14 11:50 | disposition home or self-care (01) | DRG 435 ==
LOC: ED 19:44 → MS3 19:56
PROVIDERS: Admitting Provider Student in an Organized Health Care Education/Training Program; Emergency Provider Emergency Medicine; PCP Family Medicine; Visit Provider Internal Medicine
DX: C22.0 Liver cell carcinoma (principal); I81 Portal vein thrombosis; E43 Unspecified severe protein-calorie malnutrition; I47.2 Ventricular tachycardia; K56.7 Ileus, unspecified; R18.8 Other ascites; D69.6 Thrombocytopenia, unspecified; K74.60 Unspecified cirrhosis of liver; K29.70 Gastritis, unspecified, without bleeding; I25.5 Ischemic cardiomyopathy; I25.10 Atherosclerotic heart disease of native coronary artery without angina pectoris; K42.9 Umbilical hernia without obstruction or gangrene; I10 Essential (primary) hypertension; E78.5 Hyperlipidemia, unspecified; E78.00 Pure hypercholesterolemia, unspecified; L29.9 Pruritus, unspecified; I25.2 Old myocardial infarction; R16.2 Hepatomegaly with splenomegaly, not elsewhere classified; Z87.891 Personal history of nicotine dependence; Z80.42 Family history of malignant neoplasm of prostate; Z79.82 Long term (current) use of aspirin; Z66 Do not resuscitate; Z51.5 Encounter for palliative care; N40.0 Benign prostatic hyperplasia without lower urinary tract symptoms; Z95.5 Presence of coronary angioplasty implant and graft; Z86.19 Personal history of other infectious and parasitic diseases
CPT/HCPCS: 36415; 49083; 74177; 74183; 80048; 80053; 80076; 81001; 82105; 83690; 85025; 85610; 85730; 86706; 86803; 87340; 93005; 97161; 97166; 97802; 99284; A9575; J7030; Q9967; A4216; J2405

== ENCOUNTER → 2021-11-22 | Outpatient (CLI) | payer MEDICARE, OTHER, SELFPAY ==
[2021-11-22 14:21] LABS: Absolute Lymphocyte Count 0.86 X10^3/uL (0.83-4.51); Absolute Neutrophil Count 4.5 X10^3/uL (2.0-7.7); Basophil# 0.07 X10^3/uL; Basophil% 1.1 % (0-1); Eosinophil# 0.13 X10^3/uL; Hematocrit 48.9 % (40-54); Hemoglobin 15.6 g/dL (13.0-16.5); Lymphocyte # 0.86 X10^3/ul (0.83-4.51); Lymphocyte % 13.4 % (19-41); Mean Corp Hgb Conc 31.9 g/dL (32-36); Mean Corpuscular Volume 84.6 fL (80-94); Mean Platelet Vol. 11.2 fl (6.2-12.0); Monocyte# 0.88 X10^3/uL; Monocyte% 13.7 % (0-10); NRBC Flagged by Analyzer 0 % (0-5); Neutrophil # 4.46 X10^3/uL (2.7-7.7); Neutrophil % 69.5 % (47-70); Platelet Count 131 K/mm3 (150-450); RBC Distribution Width CV 16.3 % (11.6-14.6); RBC Distribution Width SD 48.2 fl (35.1-43.9); Red Blood Count 5.78 M/mm3 (4.6-6.2); White Blood Count 6.4 K/mm3 (4.4-11.0)
[2021-11-22 14:52] LABS: ALB/GLOB Ratio 0.8 RATIO (0.9-2.4); AST(SGOT) 112 U/L (15-37); Alanine Aminotransfer ALT/SGPT 41 U/L (16-61); Albumin, Serum 3.2 g/dL (3.2-5.0); Alkaline Phosphatase 96 U/L (45-117); Anion Gap 9 (5-15); BUN 16 mg/dL (7-18); BUN/Creat Ratio 12.8 RATIO (10-20); Calcium,Total 9.3 mg/dL (8.5-10.1); Chloride 97 mmol/L (98-107); Creatinine, Serum 1.25 mg/dL (0.70-1.30); EST Glomerular Filtration Rate 59 mL/min (>60); Est Glom Filt Rate - Afr Amer 71 mL/min (>60); Globulin 3.9 g/dL (2.2-4.2); Glucose 130 mg/dL (74-106); Potassium 4.4 mmol/L (3.5-5.1); Protein, Total 7.1 g/dL (6.4-8.2); Sodium Level 131 mmol/L (136-145)
== END | disposition home or self-care (01) ==
LOC: LAB 14:01
PROVIDERS: PCP Family Medicine; Referring Provider Internal Medicine Gastroenterology; Visit Provider Internal Medicine Gastroenterology
DX: C22.9 Malignant neoplasm of liver, not specified as primary or secondary (principal); D69.6 Thrombocytopenia, unspecified
CPT/HCPCS: 36415; 80053; 82105; 82140; 85025

== ENCOUNTER → 2021-11-26 | Outpatient (CLI) | payer MEDICARE, OTHER, SELFPAY ==
--- NOTE | 2021-11-26 07:43 | CT_ITS ---
INDICATION: Known hepatocellular CA EXAMINATION: CT CHEST WITHOUT CONTRAST - CT Chest W/O Contrast Injection TECHNIQUE: Helically acquired images were obtained of the chest. A radiation dose optimization technique was used for this scan. IV Contrast dosage and agent: None. COMPARISON: Previous plain films FINDINGS: LUNGS, PLEURA AND LARGE AIRWAYS: Lung windows show underlying emphysema with chronic interstitial changes, and a likely fibrotic scar noted in the right lower lobe on axial image 80. However, given patient''s history of neoplasm this could be a pulmonary metastasis, it measures 1.69 x 0.62 cm.. No organized infiltrate or suspicious noncalcified mass or nodule. There are bilateral pneumatoceles in the lower lobes. No organized infiltrate or effusion. THYROID: No thyroid lesions. HEART AND PERICARDIUM: Heart size is normal. No pericardial effusion. CORONARY ARTERIES: Coronary artery calcification is seen. VESSELS: Peripheral calcifications in the thoracic aorta without aneurysm. MEDIASTINUM AND OSCAR: No suspicious mediastinal or hilar adenopathy. Esophagus is unremarkable. No hiatal hernia. UPPER ABDOMEN: Limited cuts through the upper abdomen again demonstrate a cirrhotic liver with a suspicious solid lesion in the left lobe. There are concerning low density lesions elsewhere in the liver, please see dedicated abdomen and pelvis study from 11/10/2021. There is associated ascites. BONES: Bony structures show degenerative change CT/Chest without Contrast IMPRESSION: Underlying emphysema with chronic interstitial changes. There is a poorly defined soft tissue density in the right lower lobe on axial image 80 which may represent a fibrotic scar but a focal metastasis cannot be excluded. There is no organized infiltrate, there is dependent atelectasis and bilateral pneumatoceles. No suspicious adenopathy Calcified coronary vessels Cirrhotic liver with suspicious lesion in the left lobe, and ascites. Please see dedicated CT abdomen report of 11/10/2021 for more complete evaluation Degenerative bony changes Electronically Signed: Real Mak MD at 11:00 EDT ,
== END | disposition home or self-care (01) ==
LOC: CT 07:42
PROVIDERS: PCP Family Medicine; Referring Provider Internal Medicine Medical Oncology; Visit Provider Internal Medicine Medical Oncology
DX: C22.0 Liver cell carcinoma (principal)
CPT/HCPCS: 71250

== ENCOUNTER → 2021-12-17 | Outpatient (CLI) | payer MEDICARE, OTHER, SELFPAY ==
--- NOTE | 2021-12-17 09:03 | US_ITS ---
STUDY: ABDOMINAL ULTRASOUND - 4 quadrants. REASON FOR VISIT: Male, 81 years old ascites assessment. TECHNIQUE: Ultrasound evaluation of the 4 quadrants was performed with real-time and static porter-scale imaging. TECHNICAL QUALITY: Adequate. COMPARISON: None. FINDINGS: Small amount of fluid in the right lower quadrant. Not enough for safe paracentesis. US/Abdomen Limited IMPRESSION: Not enough fluid for safe paracentesis. Electronically Signed: Oleg Leon MD at 9:33 EDT ,
== END | disposition home or self-care (01) ==
PROVIDERS: PCP Family Medicine; Referring Provider Internal Medicine Gastroenterology; Visit Provider Internal Medicine Gastroenterology
DX: R18.8 Other ascites (principal)
CPT/HCPCS: 76705

== ENCOUNTER 2021-12-19 15:23 | Inpatient (IN) | payer MEDICARE, OTHER, SELFPAY ==
[2021-12-19] VITALS (13 sets, daily range): BP systolic 66–96; BP diastolic 47–62; PULSE 66–118; RESP 12–18; TEMP 35.7–36.8; O2SAT 88–96; BMI 25.8; BMI 26.2
--- NOTE | 2021-12-19 15:20 | EKG12_ITS ---
Test Reason : CP Blood Pressure : / mmHG Vent. Rate : 072 BPM Atrial Rate : 072 BPM P-R Int : 126 ms QRS Dur : 128 ms QT Int : 428 ms P-R-T Axes : 029 080 038 degrees QTc Int : 468 ms Normal sinus rhythm Low voltage QRS (Limb Leads) Right bundle branch block Abnormal ECG Confirmed by NOLAN POLANCO, LAURYN ([id number]), news assignment editor CRISTIAN POLLARD ([id number]) on 12/21/2021 8:21:10 AM Referred By: ORLY/EDWIN Confirmed By:LAURYN FRANCISCO MD
--- NOTE | 2021-12-19 16:16 | EDS_ITS ---
HPI History of Present Illness Chief Complaint: Weakness Informant: patient and family Onset/Context/Timing Onset: Month(s) (1-2) Context: Gradual Onset Timing: Continuous Quality: Pressure Location: Abdomen Worsened by: Nothing Relieved by: Nothing Narrative Narrative: Patient presents with generalized weakness that has been getting worse over the past 1 to 2 months. Patient states it is gradually getting worse. Patient states that he has liver cancer and has been getting progressively worse since he has been diagnosed with this. Family states the patient was supposed to have a paracentesis earlier this week but they were unable to due to lack of fluid. Patient admits to some pressure in his abdomen. Patient states nothing makes it better and nothing makes it worse. Patient also admits to some decreased appetite. Patient admits to nausea, vomiting, and diarrhea. Patient denies any melena or hematochezia. Patient denies any hematemesis or coffee-ground emesis. [facility] Medical History Atherosclerosis of coronary artery of [place] heart without angina pectoris Encounter for education Essential hypertension Former smoker Hepatitis C History of ST elevation myocardial infarction (STEMI) Ischemic cardiomyopathy Liver cancer Presence of stent in coronary artery (~02/18/17) Pure hypercholesterolemia STEMI (ST elevation myocardial infarction) Thrombocytopenia Wide-complex tachycardia Home Medications atorvastatin 40 mg tablet 40 mg PO QHS #90 tabs 09/20/21 [Rx Last Taken Unknown] carvedilol 3.125 mg tablet 3.125 mg PO BID bp 11/10/21 [History Last Taken Unknown] lisinopril 2.5 mg tablet 2.5 mg PO DAILY bp 11/10/21 [History Last Taken Unknown] prednisolone acetate 1 % eye drops,suspension 1 drp EACH EYE DAILY Check with primary doctor 11/10/21 [History Last Taken Unknown] apixaban 5 mg tablet (Eliquis) 5 mg PO BID #60 tabs 11/14/21 [Rx Last Taken Unknown] finasteride 5 mg tablet 5 mg PO DAILY #30 tabs 11/14/21 [Rx Last Taken Unknown] lactulose 20 gram/30 mL oral solution 20 g (30 mL) PO DAILY #1,500 mL 11/14/21 [Rx Last Taken Unknown] rifaximin 550 mg tablet (Xifaxan) 550 mg PO BID #60 tabs 11/22/21 [Rx Last Taken Unknown] furosemide 20 mg tablet 20 mg PO DAILY #90 tabs 12/01/21 [Rx Last Taken Unknown] pantoprazole 40 mg tablet,delayed release 40 mg PO DAILY #90 tabs 12/01/21 [Rx Last Taken Unknown] spironolactone 25 mg tablet 25 mg PO DAILY #90 tabs 12/01/21 [Rx Last Taken Unknown] ursodiol 250 mg tablet 250 mg PO BID #60 tabs 12/13/21 [Rx Last Taken Unknown] Keytruda 12/19/21 [History Last Taken Unknown] Allergy/AdvReac Type Severity Reaction Status Date / Time No Known Allergies Allergy Verified 12/16/21 09:34 Family History Father Cancer Mother CVA (cerebral vascular accident) Brother Cancer Prostate Cancer Surgical History Presence of coronary angioplasty implant and graft (~17) Social History (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) household members: none Smoking Status: Former smoker how long ago did patient quit smokin alcohol intake: current alcohol intake frequency: a few times a month Alcohol type: beer and wine substance use type: does not use caffeine: Yes Type: coffee Number of servings: 2 what type of physical activity do you participate in: none seatbelt use: always do you feel safe at home: Yes ROS ROS ED Constitutional Constitutional ED: Denies chills or fever(s) Eyes Eyes: Denies blurry vision or change in vision ENT ENT ED: Denies rhinorrhea or sore throat Cardiovascular Cardiovascular: Denies chest pain or palpitations Respiratory/Chest Respiratory/Chest: Denies cough or dyspnea Gastrointestinal Gastrointestinal: Reports abdominal pain, diarrhea, nausea and vomiting; Denies melena Genitourinary Genitourinary ED: Denies dysuria or hematuria Musculoskeletal Musculoskeletal: Reports back pain and neck pain Integumentary Denies abscess or rash Neurologic Neurologic: Denies headache(s) or weakness Allergic/Immunologic Allergic/Immunologic ED: Denies mouth swelling or urticaria EXAM Physical Exam Const Vital Signs: 12/19/21 15:26 12/19/21 15:53 12/19/21 15:53 Temperature 96.2 F L Temperature Source Temporal Pulse Rate 70 72 Respiratory Rate 18 15 Respiratory Effort Normal Respiratory Pattern Normal Blood Pressure 96/48 L 82/59 L Blood Pressure Mean 64 66 Pulse Ox 90 96 Oxygen Delivery Method Room Air Room Air 12/19/21 18:05 12/19/21 19:30 Temperature Temperature Source Pulse Rate 118 H 80 Respiratory Rate 14 14 Respiratory Effort Respiratory Pattern Blood Pressure 88/57 L 78/62 L Blood Pressure Mean 67 67 Pulse Ox 94 Oxygen Delivery Method Room Air Positive well nourished General Appearance ED: NAD HEENT Reports moist mucous membranes Neck supple and no JVD Resp normal respiratory effort and clear to auscultation bilaterally Cardio regular rate, regular rhythm and no murmurs GI GI Narrative: Abdomen is distended due to ascites. There is a positive fluid wave. There is no caput [place] noted. There is no tenderness. There is no rebound or guarding noted. Inspection: abdominal distention Auscultation: normoactive bowel sounds Palpation: soft; Negative for tender, guarding or rebound tenderness present Extremity normal to inspection General Extremety ED: Negative for edema or tenderness General Extremity: Negative for edema Neuro oriented x3, CN's II-XII intact bilaterally and no sensory deficits noted Sensorium / Orientation: alert Motor Exam: strength 5/5 throughout Psych mental status grossly normal Skin no rashes or lesions noted MDM MDM MDM Narrative Medical decision making narrative: Patient is given IV fluids. EKG was obtained. On my interpretation, it showed a normal sinus rhythm with a rate of 72. AR interval, and QTc intervals were normal. QRS interval was slightly prolonged at 128 ms. There is a right bundle branch block pattern noted. [place] was normal. There are no acute ST or T wave changes. This was unchanged compared to previous EKG. CBC shows a normal white blood cell count and hemoglobin and hematocrit. Platelet count was slightly low at 148. PT was 23.8, INR is 2.2, PTT was 45.0. Comprehensive metabolic profile shows a BUN of 88 and creatinine of 8.64. These are markedly increased from previous result. Potassium was 7.0. CO2 was 19. Anion gap was 15. Total bilirubin was slightly elevated at 2.2. Lipase was normal. Lactate was elevated at 3.2. PA and lateral chest x-ray was obtained. There are 2 views. On my interpretation, lung jernigan are clear. There is normal cardiac silhouette. Bony thorax is normal. There is no acute process noted. Radiologist also interpreted the x-ray and agrees. CT scan of the abdomen and pelvis was obtained with oral contrast. There are multiple lesions noted within the liver that are likely metastatic disease. There is ascites noted. There is no evidence of bowel obstruction. There is no perforation. This was interpreted by the radiologist and reviewed by myself. Patient was given repeat bolus of IV fluids. Case was discussed with the hospitalist. She will admit the patient to ICU. Patient was started on Zosyn to cover for possible spontaneous bacterial peritonitis. Patient and family understood and were agreeable with the plan. All questions were answered. Lab Data Attestation: I reviewed the patient's lab results. Labs: Laboratory Results - last 24 hr 12/19/21 12/19/21 12/19/21 16:35 16:35 16:35 WBC 7.0 RBC 5.77 Hgb 14.0 Hct 44.1 MCV 76.4 L MCH 24.3 L MCHC 31.7 L RDW Std Deviation 53.2 H RDW Coeff of Nixon 21.5 H Plt Count 148 L Immature Gran % (Auto) 0.300 Neut % (Auto) 67.1 Lymph % (Auto) 18.3 L [place] % (Auto) 11.6 H Eos % (Auto) 1.7 Baso % (Auto) 1.0 Absolute Neuts (auto) 4.7 Absolute Lymphs (auto) 1.28 Nucleated RBC % 1.1 Differential Comment SCANNED Anisocytosis 2+ Target Cells 2+ PT 23.8 H INR 2.2 APTT 45.0 H Sodium 138 Potassium 7.0 H* Chloride 104 Carbon Dioxide 19.0 L Anion Gap 15 BUN 88 H Creatinine 8.64 H* Estim Creat Clear Calc 6.05 Est GFR (MDRD) Af Amer 8 L Est GFR (MDRD) Non-Af 6 L BUN/Creatinine Ratio 10.2 Glucose 101 Lactic Acid Calcium 8.8 Total Bilirubin 2.20 H AST 266 H ALT 102 H Alkaline Phosphatase 97 Total Protein 6.7 Albumin 2.2 L Globulin 4.5 H Albumin/Globulin Ratio 0.5 L Lipase 260 POC Glucose 12/19/21 12/19/21 16:50 18:10 WBC RBC Hgb Hct MCV MCH MCHC RDW Std Deviation RDW Coeff of Nixon Plt Count Immature Gran % (Auto) Neut % (Auto) Lymph % (Auto) [place] % (Auto) Eos % (Auto) Baso % (Auto) Absolute Neuts (auto) Absolute Lymphs (auto) Nucleated RBC % Differential Comment Anisocytosis Target Cells PT INR APTT Sodium Potassium Chloride Carbon Dioxide Anion Gap BUN Creatinine Estim Creat Clear Calc Est GFR (MDRD) Af Amer Est GFR (MDRD) Non-Af BUN/Creatinine Ratio Glucose Lactic Acid 3.2 H* Calcium Total Bilirubin AST ALT Alkaline Phosphatase Total Protein Albumin Globulin Albumin/Globulin Ratio Lipase POC Glucose 202 H Radiography Diagnostic Testing: Clinical Impression(s) from Imaging Studies Abdomen CT 12/19/21 16:23 IMPRESSION: (NOT LISTED IN ORDER OF SIGNIFICANCE) There are multiple lesions noted in the liver which are likely related to metastatic disease. Ascites. Other findings as above. Electronically Signed: Kory Soria MD at 18:59 EDT , Chest X-Ray 12/19/21 18:25 IMPRESSION: There are no acute findings. Electronically Signed: Kory Soria MD at 18:49 EDT , EKG Initial EKG: Interpretation: Sinus Rhythm (72), No Acute Injury Pattern and RBBB Prior EKG tracings: available for review Prior: Unchanged (11/10/2021) Critical Care Time Critical Care Time: Yes Critical care time (excluding procedures): 30-74 minutes (42), Including time spent:, Discussing w/Patient &/or Family/Director Of Agronomy, Discussing w/Consultants, Arranging Admission or Transfer and Performing Direct Patient Care at Bedside Discharge Plan Triage Chief Complaint: Weakness ED Provider: Navarro Morales Dx/Rx/DC Orders Clinical Impression: Acute kidney injury, Hepatocellular carcinoma, Cirrhosis, Hypotension, Hyperkalemia Prescriptions: No Action Xifaxan 550 mg tablet 550 mg PO BID Qty: 60 11RF prednisolone acetate 1 DROP drops,suspension 1 drp EACH EYE DAILY carvedilol 3.125 mg tablet 3.125 mg PO BID lisinopril 2.5 mg tablet 2.5 mg PO DAILY Eliquis 5 mg Tablet 5 mg PO BID Qty: 60 1RF finasteride 5 mg tablet 5 mg PO DAILY Qty: 30 2RF lactulose 20 gram/30 mL solution 20 g PO DAILY Qty: 1500 0RF Keytruda atorvastatin 40 mg tablet 40 mg PO QHS Qty: 90 3RF spironolactone 25 mg tablet 25 mg PO DAILY Qty: 90 3RF Hold Instructions: Low BP pantoprazole 40 mg tablet,delayed release (DR/EC) 40 mg PO DAILY Qty: 90 3RF furosemide 20 mg tablet 20 mg PO DAILY Qty: 90 3RF Hold Instructions: Low BP ursodiol 250 mg tablet 250 mg PO BID Qty: 60 2RF Primary Care Provider: Doe Suárez Referrals: Doe Suárez MD [Primary Care Provider] - Disposition Disposition: Acute Care Hospital [facility]
--- NOTE | 2021-12-19 16:23 | CT_ITS ---
STUDY: CT Abdomen And Pelvis W/O Contrast Injection 12/19/2021 6:56 PM REASON FOR EXAM: Male, 81 years old. Abdominal pain Abdominal pain -- liver cancer hepatitis Individualized dose optimization techniques were used for this CT. COMPARISON: 11.10.21 TECHNIQUE: CT Abdomen And Pelvis W/O Contrast Injection Oral Gastrografin FINDINGS: There are atherosclerotic calcifications of visualized coronary arteries. There is a small pericardial effusion. There are multiple lesions noted in the liver which are likely related to metastatic disease. Ascites. Normal gallbladder and extrahepatic biliary system. Normal spleen. Normal pancreas. Heterogeneous irregular appearance of the liver. Normal bilateral adrenal glands. No acute findings of the right kidney. No acute findings of the left kidney. Normal visualized stomach. Normal small intestine. Stool throughout the colon. There is non-visualization of the appendix. There are calcifications of the abdominal aorta. This is consistent for atherosclerotic disease. There is NO abdominal aortic aneurysm. Vascular workup can be obtained based on clinical correlation. Normal inferior vena cava. Subcentimeter mesenteric lymph nodes. Normal urinary bladder. Free fluid in the pelvis. Normal abdominal wall. There are diffuse degenerative changes of the visualized lumbar spine. CT/Abdomen/Pel W ORAL Cont Only IMPRESSION: (NOT LISTED IN ORDER OF SIGNIFICANCE) There are multiple lesions noted in the liver which are likely related to metastatic disease. Ascites. Other findings as above. Electronically Signed: Kory Soria MD at 18:59 EDT ,
[2021-12-19] MEDS: 0.9% Normal Saline 1,000 ML 1000 ML IV ×2 (16:52→19:40)
[2021-12-19 16:53] LABS: Absolute Lymphocyte Count 1.28 X10^3/uL (0.83-4.51); Absolute Neutrophil Count 4.7 X10^3/uL (2.0-7.7); Basophil# 0.07 X10^3/uL; Eosinophil# 0.12 X10^3/uL; Eosinophils% 1.7 % (0-5); Hematocrit 44.1 % (40-54); Lymphocyte # 1.28 X10^3/ul (0.83-4.51); Lymphocyte % 18.3 % (19-41); Mean Corp Hgb Conc 31.7 g/dL (32-36); Mean Corpuscular Hgb 24.3 pg (27.0-32.0); Mean Corpuscular Volume 76.4 fL (80-94); Monocyte# 0.81 X10^3/uL; Monocyte% 11.6 % (0-10); NRBC Flagged by Analyzer 1.1 % (0-5); Neutrophil # 4.68 X10^3/uL (2.7-7.7); Neutrophil % 67.1 % (47-70); POSITIVE MORPHOLOGY YES; Platelet Count 148 K/mm3 (150-450); RBC Distribution Width CV 21.5 % (11.6-14.6); RBC Distribution Width SD 53.2 fl (35.1-43.9); Red Blood Count 5.77 M/mm3 (4.6-6.2)
[2021-12-19 17:07] LABS: Differential Indicated SCAN CRITERIA MET
[2021-12-19 17:11] LABS: International Normalized Ratio 2.2; Prothrombin Time (Protime)PT. 23.8 SECONDS (11.7-14.9)
[2021-12-19 17:17] LABS: ALB/GLOB Ratio 0.5 RATIO (0.9-2.4); AST(SGOT) 266 U/L (15-37); Alanine Aminotransfer ALT/SGPT 102 U/L (16-61); Albumin, Serum 2.2 g/dL (3.2-5.0); Alkaline Phosphatase 97 U/L (45-117); Anion Gap 15 (5-15); BUN 88 mg/dL (7-18); BUN/Creat Ratio 10.2 RATIO (10-20); Calcium,Total 8.8 mg/dL (8.5-10.1); Chloride 104 mmol/L (98-107); Creatinine, Serum 8.64 mg/dL (0.70-1.30); EST Glomerular Filtration Rate 6 mL/min (>60); Est Glom Filt Rate - Afr Amer 8 mL/min (>60); Estimated Creatinine Clearance 6.05 ml/min; Globulin 4.5 g/dL (2.2-4.2); Glucose 101 mg/dL (74-106); Lipase 260 U/L (73-393); Protein, Total 6.7 g/dL (6.4-8.2); Sodium Level 138 mmol/L (136-145)
[2021-12-19 17:29] LABS: Lactic Acid 3.2 mmol/L (0.4-1.9)
[2021-12-19 17:37] LABS: Differential Comment SCANNED
[2021-12-19 17:38] LABS: Anisocytosis 2+; Target Cells 2+
[2021-12-19] MEDS: Calcium Gluconate IV 3 GM in Syringe 1 EACH IV (17:50)
[2021-12-19] MEDS: Dextrose 50%-Water 25 GM/50 ML DISP.SYRIN IV (17:50)
[2021-12-19] MEDS: Insulin Lispro 10 UNIT in Syringe 0 ML 6 UNIT IV (17:50)
--- NOTE | 2021-12-19 18:25 | RAD_ITS ---
STUDY: X-RAY CHEST REASON FOR EXAM: Male, 81 years old. cough TECHNIQUE: XR Chest 2 Views COMPARISON: 8.25.22 FINDINGS: There is atherosclerotic calcification of the aortic arch with tortuosity. There are diffuse degenerative changes of the visualized thoracic spine. There is degenerative osteoarthritis of the bilateral shoulders. There is no demonstrated pleural abnormality. Normal size heart. Normal mediastinum and jayesh. Normal visualized pulmonary arteries. There is no demonstrated abnormality of the visualized soft tissue structures of the upper abdomen. RAD/Chest PA and Lateral IMPRESSION: There are no acute findings. Electronically Signed: Kory Soria MD at 18:49 EDT ,
[2021-12-19 18:30] LABS: Bedside Glucose 202 mg/dL (74-106)
--- NOTE | 2021-12-19 19:39 | HP.PCM.HOS_ITS ---
HPI - General General Date of Admission: 12/19/21 Date of Service: 12/19/21 Chief Complaint: FTT Adult, N/V/D HPI Narrative The patient is an 81 y/o M w/ PMHx: Hepatocellular carcinoma, Hx Hepatitis C s/p treatment, CAD w/ NSTEMI s/p PCI, Ischemic Cardiomyopathy, HTN, HLD, Former tobacco usek, Chronic Thrombocytopenia, BPH, GERD who presents to the [facility] ED on 12/19/21 with history of significant progressive decline over the last 4 to 8 we eks following recent diagnosis of hepatocellular carcinoma reporting that he was post to have a paracentesis earlier this week however this did not happen secondary to lack of fluid at that time with now some abdominal distention and sensation of fluid wave with decreased oral intake, occasional nausea and emesis as well as loose stools prompting ED evaluation. Denies any specific pain and on palpation during evaluation denies any specific discomfort. Work-up in the ED included T 96.2, HR 70-->118, BP 96/48-->88/57-->78/62, RR 18, 90% on RA initially-->94% on RA, CBC with WC 7, hemoglobin 14, MCV 76.4, platelet 148 without marked shift, coags with PT 23.8, INR 2.2, PTT 45, CMP with potassium 7.0 however this is noted to be moderately hemolyzed, carbon oxide 19, BUN/creat 88/8.64 with baseline creatinine prior 1.0-1.2 primarily however on 12/14/2021 creatinine 2.34, lactic acid 3.2, total bilirubin 2.20, AST/ALT 266/102, alk phos 97, lipase 260, blood culture x2 pending per ED, chest x-ray with no acute cardiopulmonary findings, CT abdomen pelvis without contrast with multiple lesio ns noted in liver likely related to metastatic disease, ascites, small pericardial effusion, no acute findings of the right or left kidneys noted, subcentimeter mesenteric lymph nodes, EKG with SR with RBBB with no acute evidence of ischemia. In the ED patient ordered normal saline 2 L bolus with c urrent per ED physician being administered his 1st L, insulin 10 units IV x1, dextrose amp, calcium gluconate 3 g IV x1. Urinalysis pending per ED. Given recent paracentesis attempts and acute presentation per discussion with ED physician, patient also will be administered SBP coverage. [facility] Medical History Atherosclerosis of coronary artery of [place] heart without angina pectoris Encounter for education Essential hypertension Former smoker Hepatitis C History of ST elevation myocardial infarction (STEMI) Ischemic cardiomyopathy Liver cancer Presence of stent in coronary artery (~02/18/17) Pure hypercholesterolemia STEMI (ST elevation myocardial infarction) Thrombocytopenia Wide-complex tachycardia Home Medications atorvastatin 40 mg tablet 40 mg PO QHS #90 tabs 09/20/21 [Rx Last Taken Unknown] carvedilol 3.125 mg tablet 3.125 mg PO BID bp 11/10/21 [History Last Taken Unknown] lisinopril 2.5 mg tablet 2.5 mg PO DAILY bp 11/10/21 [History Last Taken Unknown] prednisolone acetate 1 % eye drops,suspension 1 drp EACH EYE DAILY Check with primary doctor 11/10/21 [History Last Taken Unknown] apixaban 5 mg tablet (Eliquis) 5 mg PO BID #60 tabs 11/14/21 [Rx Last Taken Unknown] finasteride 5 mg tablet 5 mg PO DAILY #30 tabs 11/14/21 [Rx Last Taken Unknown] lactulose 20 gram/30 mL oral solution 20 g (30 mL) PO DAILY #1,500 mL 11/14/21 [Rx Last Taken Unknown] rifaximin 550 mg tablet (Xifaxan) 550 mg PO BID #60 tabs 11/22/21 [Rx Last Taken Unknown] furosemide 20 mg tablet 20 mg PO DAILY #90 tabs 12/01/21 [Rx Last Taken Unknown] pantoprazole 40 mg tablet,delayed release 40 mg PO DAILY #90 tabs 12/01/21 [Rx Last Taken Unknown] spironolactone 25 mg tablet 25 mg PO DAILY #90 tabs 12/01/21 [Rx Last Taken Unknown] ursodiol 250 mg tablet 250 mg PO BID #60 tabs 12/13/21 [Rx Last Taken Unknown] Keytruda 12/19/21 [History Last Taken Unknown] Allergy/AdvReac Type Severity Reaction Status Date / Time No Known Allergies Allergy Verified 12/16/21 09:34 Family History Father Cancer Mother CVA (cerebral vascular accident) Brother Cancer Prostate Cancer Surgical History Presence of coronary angioplasty implant and graft (~02/18/17) Social History (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) household members: none Smoking Status: Former smoker how long ago did patient quit smokin alcohol intake: current alcohol intake frequency: a few times a month Alcohol type: beer and wine substance use type: does not use caffeine: Yes Type: coffee Number of servings: 2 what type of physical activity do you participate in: none seatbelt use: always do you feel safe at home: Yes ROS ROS Narrative Admission Review of Systems: CONSTITUTIONAL: No weight loss, fever, chills, + weakness or fatigue. HEENT: Eyes: No visual loss, blurred vision, double vision or yellow sclerae. Ears, Nose, Throat: No hearing loss, sneezing, congestion, runny nose or sore throat. SKIN: No rash or itching, lesions, wounds. CARDIOVASCULAR: No chest pain, chest pressure or chest discomfort, palpitations, edema, orthopnea, syncopal events. RESPIRATORY: No shortness of breath, cough or sputum, wheezing, hemoptysis. GASTROINTESTINAL: + anorexia, nausea, vomiting, diarrhea, abdominal pain, abdominal distention, No melena, BRBPR. GENITOURINARY: + Urinary frequency chronically with BPH, No dysuria, urgency or retention. NEUROLOGICAL: No headache, dizziness, syncope, paralysis, ataxia, numbness or tingling in the extremities, focal weakness, change in bowel or bladder control, seizure. MUSCULOSKELETAL: + muscle, back pain, joint pain or stiffness. HEMATOLOGIC: + anemia, bleeding or bruising. LYMPHATICS: No enlarged nodes. No history of splenectomy. PSYCHIATRIC: No history of depression or anxiety. ENDOCRINOLOGIC: No reports of sweating, cold or heat intolerance. No polyuria or polydipsia. ALLERGIES: No history of asthma, hives, eczema or rhinitis. Vital Signs Vital Signs Vital Signs: 12/19/21 15:26 12/19/21 15:53 12/19/21 15:53 Temperature 96.2 F L Temperature Source Temporal Pulse Rate 70 72 Respiratory Rate 18 15 Respiratory Effort Normal Respiratory Pattern Normal Blood Pressure 96/48 L 82/59 L Blood Pressure Mean 64 66 Pulse Ox 90 96 Oxygen Delivery Method Room Air Room Air 12/19/21 18:05 12/19/21 19:30 Temperature Temperature Source Pulse Rate 118 H 80 Respiratory Rate 14 14 Respiratory Effort Respiratory Pattern Blood Pressure 88/57 L 78/62 L Blood Pressure Mean 67 67 Pulse Ox 94 Oxygen Delivery Method Room Air Weight Weight: 160 lb Body Mass Index (BMI) 25.8 Physical Exam Narrative Physical Examination: General: Awake, alert, oriented x 3 and cooperative, laying in the ED bed, fatig ued, ill-appearing. Skin: Normal color, normal turgor, no icterus, no cyanosis except for occasional staged ecchymoses. HEENT: AT/NC, EOMI, PERRLA, dry MM, no carotid bruits or JVD noted. Lungs: Diminished, greater bases, some upper airway wheeze but this is limited to the oropharynx with no concerning airway obstruction, no rales, ronchi or wheezing in the lung jernigan. Heart: Regular rate and rhythm; no gallop, rub audible. Abdomen: Soft, mild generalized discomfort but no rebound or guarding, distended, unable to elicit aggressive fluid wave, distant bowel sounds, positive HM. Extremities: No cyanosis, no clubbing, bilateral pedal to distal tovar edema. Neurological: Patient awake, alert, oriented as noted, cognitive function intact; pupils equally reactive to light and accommodation, cranial nerves II- XII grossly normal, moving all 4 extremities, no focal deficits, strength moderately to severely globally decreased secondary to acute complaints and presentation. Psychiatric: Affect appears flat, fatigued, suspect underlying depression given acute recent events with significant cancer diagnosis with no previous history of anxiety or depression. Results Lab / Micro Data Result Diagrams: 12/19/21 16:35 12/19/21 16:35 Labs: Laboratory Results - last 24 hr 12/19/21 16:35: WBC 7.0, RBC 5.77, Hgb 14.0, Hct 44.1, MCV 76.4 L, MCH 24.3 L, MCHC 31.7 L, RDW Std Deviation 53.2 H, RDW Coeff of [place] 21.5 H, Plt Count 148 L, Immature Gran % (Auto) 0.300, Neut % (Auto) 67.1, Lymph % (Auto) 18.3 L, [place] % (Auto) 11.6 H, Eos % (Auto) 1.7, Baso % (Auto) 1.0, Absolute Neuts (auto) 4.7, Absolute Lymphs (auto) 1.28, Nucleated RBC % 1.1, Differential Comment SCANNED, Anisocytosis 2+, Target Cells 2+ 12/19/21 16:35: PT 23.8 H, INR 2.2, APTT 45.0 H 12/19/21 16:35: Sodium 138, Potassium 7.0 H*, Chloride 104, Carbon Dioxide 19.0 L, Anion Gap 15, BUN 88 H, Creatinine 8.64 H*, Estim Creat Clear Calc 6.05, Est GFR (MDRD) Af Amer 8 L, Est GFR (MDRD) Non-Af 6 L, BUN/Creatinine Ratio 10.2, Glucose 101, Calcium 8.8, Total Bilirubin 2.20 H, AST 266 H, ALT 102 H, Alkaline Phosphatase 97, Total Protein 6.7, Albumin 2.2 L, Globulin 4.5 H, Albumin/Globulin Ratio 0.5 L, Lipase 260 12/19/21 16:50: Lactic Acid 3.2 H* 12/19/21 18:10: POC Glucose 202 H Radiology Impression Abdomen CT 12/19/21 16:23 IMPRESSION: (NOT LISTED IN ORDER OF SIGNIFICANCE) There are multiple lesions noted in the liver which are likely related to metastatic disease. Ascites. Other findings as above. Electronically Signed: Kory Soria MD at 18:59 EDT , Chest X-Ray 12/19/21 18:25 IMPRESSION: There are no acute findings. Electronically Signed: Kory Soria MD at 18:49 EDT , Assessment & Plan Assessment/Plan (1) Acute kidney injury: PLAN: Plan The patient is an 81 y/o M w/ PMHx: Hepatocellular carcinoma, Hx Hepatitis C s/p treatment, CAD w/ NSTEMI s/p PCI, Ischemic Cardiomyopathy, HTN, HLD, Former tobacco use, Chronic Thrombocytopenia, BPH, GERD who presents to the [facility] ED on 12/19/21 with history of significant progressive decline over the last 4 to 8 we eks following recent diagnosis of hepatocellular carcinoma reporting that he was post to have a paracentesis earlier this week however this did not happen secondary to lack of fluid at that time with now some abdominal distention and sensation of fluid wave with decreased oral intake, occasional nausea and emesis as well as loose stools prompting ED evaluation. #1. Abdominal Pressure/Pain w/ associated N/V/D, Possible SBP w/ Hypotension, Possible Hepatorenal Syndrome: Will admit to the ICU, will consult [employer]er, Nephrology and Gastroenterology as well as patient Oncologist, in the interim will continue IVFs, will initiate in case hepatorenal octreotide continuous infusion, midodrine 10 mg TID, albumin ~ 70 gm x 1 now and then 25 gm IV daily to assist in increasing MAP especially given patient preference to avoid any aggressive procedures including central line placement or pressor therapy, will continue to closely trend K although initial moderately hemolyzed and re-treat as needed, holding eliquis, requesting assessment for paracentesis with fluid assessment, procalcitonin requested, PT/OT/CM consultations for discharge planning. Also discussed with patient and family that oncology would be consulted to review current status for prognosis and decisions of care. #2. Acute kidney injury, Possible Hepatorenal with associated lactic acidosis felt secondary to hypovolemia and acute kidney injury w/ concurrent Hypotension with recent noted GI losses concurrently: Secondary to significantly declined intake, GI losses with nausea, emesis and loose stools coupled with hep atocellular carcinoma and medications. Admission BUN/Cr 88/8.6, prior baseline creatinine noted to be 1.0-1.2 primarily however 12/14/2021 creatinine started to trend up and was 2.34 at that time. Will hydrate, hold nephrotoxic medications, obtain urinalysis, obtain FeNa assessment and closely trend function. #3. Hyperkalemia: Patient with admission potassium 7.0 however it is noted to be moderately hemolyzed, will repeat a stat CMP to ascertain level and if appropriate initiate hyperkalemic regimen with serial BMPs to trend. #4. Hepatocellular carcinoma w/ Hx Hepatitis C prior s/p treatment: Recent CT A/P 11/10/21 secondary to abdominal pain with a poorly defined large mass in the left lobe of the liver extending into the claudia hepatis occluding the portal vein with associated cavernous transformation suspicious for hematoma, follow-up MRI of the abdomen 11/11/2021 with cirrhosis with a large mass of approximately 10 cm of the lateral segment of the left lobe of the liver concerning for hepatocellular carcinoma or less likely a solitary mass, tumor thrombus noted in the left portal vein, AFP 501K, diagnosis child class B and felt not a candidate given this for Sorafenib with declined biopsy as well as EBRT, embolization as well as central line placement, currently maintained on Keytruda every 3 weeks with serial paracenteses. In addition patient placed on Eliquis secondary to thrombus in the left portal vein. We will temporarily hold lisinopril, spironolactone, Lasix given acute kidney injury, given diarrhea holding lactulose, monitor I's and O's and if excessive hold. Holding beta-magali therapy given hypotension. Given presentation and need for paracentesis also ho lding Eliquis. #5. Hyperbilirubinemia: Admission total bilirubin 2.20, has been trending upward since diagnosis of hepatocellular carcinoma, prior to this 12/14/2021 total bilirubin 2.80, admission AST/ALT 266/102, prior to this 12/14/2021 AST/ALT 168/60, possibly related with #1, continue treatment as noted and continue to trend levels. #6. Left portal vein thrombus: Patient chronically outpatient on Eliquis regimen, periodically held secondary to need for paracentesis. We will at this point hold Eliquis for paracentesis consideration. #7. Chronic thrombocytopenia: Associated with hepatocellular carcinoma and prior hepatitis C history status post treatment, admission platelets 148, b aseline appears 120-140, stable, continue to trend. #8. Hypertension: Patient with significant hypotension, holding all home regimen. #9. Hyperlipidemia: We will continue statin therapy but closely monitor CMP. #10. CAD: s/p NSTEMI 02/2014 with PCI PTCA/WILLIAM to proximal OM 3 and mid LCx, continue statin therapy, holding Coreg, lisinopril given acute presentation, holding home Eliquis regimen for paracentesis. #11. BPH: We will continue patient home finasteride regimen. #12. GERD: We will maintain on PPI. #13. DVT prophylaxis: SCDs, holding home eliquis regimen, last dose 12/19/21 AM . #14. CODE status: Patient KARLOS is his son and daughter who are present and living will is currently in place. Discussed CODE status at length including difference between FULL code, DNR-CCA and DNR-CC status. Following discussions about the differences in these status, requested DNR-CCA, no intubation, no aggressive procedures or interventions including deferred central line placement/pressor therapy consideration. Advanced Care Planning Face to Face Time: 16 minutes. Charges/Coding Visit Charges Inpatient E&M: 66001 Init Hosp L3 Procedures Hospitalists Procedures: 08350 Advncd Care Plan 30 Min
[2021-12-19 20:20] LABS: Bedside Glucose 102 mg/dL (74-106)
[2021-12-19 20:21] LABS: Albumin, Serum 2.3 g/dL (3.2-5.0); Magnesium 2.2 mg/dL (1.6-2.6); Phosphorus 6.1 mg/dL (2.5-4.9)
[2021-12-19 20:59] LABS: Reflex Lactate? Y
[2021-12-19] MEDS: 0.9% Normal Saline 1,000 ML 125 ML IV (22:05)
[2021-12-19] MEDS: 0.9% Saline Lock 10 ML Syringe IV (22:29)
[2021-12-19 22:33] LABS: Anion Gap 14 (5-15); BUN 90 mg/dL (7-18); BUN/Creat Ratio 10.9 RATIO (10-20); Chloride 107 mmol/L (98-107); Creatinine, Serum 8.24 mg/dL (0.70-1.30); EST Glomerular Filtration Rate 7 mL/min (>60); Est Glom Filt Rate - Afr Amer 8 mL/min (>60); Estimated Creatinine Clearance 6.34 ml/min; Glucose 86 mg/dL (74-106); Potassium 5.1 mmol/L (3.5-5.1); Sodium Level 139 mmol/L (136-145)
[2021-12-19] MEDS: Albumin Human 25% (100 mL) 25 GM/100 ML BAG IV (23:00)
--- NOTE | 2021-12-19 23:00 | PCM.CONS.GEN ---
Assessment & Plan Assessment/Plan (1) Hepatocellular carcinoma: PLAN: Hepatocellular carcinoma in the setting of cirrhosis with acute renal failure possibly secondary to hepatorenal syndrome on palliative therapy. At this time the patient and the family do not want anything else done and want him to go hospice. I think that is very reasonable given diagnosis as he is not a transplant candidate and he would not survive TACE therapy or RFA therapy. I will sign at this time. Thank you very much for allowing me to participate in the care of this patient. HPI Consult Data Date of Consult: 12/19/21 HPI Narrative Reason for Consultation: cirrhosis HPI Narrative: PATRICIA WAGNER, is a 81 M who presents to the ED with altered mental status.? He also complained of bdominal pain, bloating and fullness for a month, he suspected constipation and utilized MiraLAX; that day he developed nausea and presented. Minimal weight loss of 5lbs. Ileus was suspected and he was admitted for care. Gastroenterology consulted 11.12.21 to manage hepatocellular carcinoma with further treatment options to be discussed by oncology. He was discharged 11.13.21.? ? Biochemical workup 11.10.21 pertinent values include platelet L120, total bili H 1.40; AST H70; albumin L2.8.? ? CT abd/pel 11.10.21 noting hepatic fatty infiltration and poorly defined solid mass in left lobe with hypoattenuated nodules in left and right lobes; splenomegaly; cholecystectomy; small amount of ascites; gastric wall thickening and lumen narrowing, suspect gastritis; mild ileus with diffuse fecal retention.? ? MRI abd 11.11.21 noting hepatic changes consistent with cirrhosis and hepatocellular carcinoma versus solitary metastasis with significant mass effect, intrahepatic biliary duct dilation, abnormal intensity and enlargement of left portal vein into main portal vein worrisome for thrombus versus tumor extension; mild splenomegaly.? ? US paracentesis 11.13.21 unsuccessful.? He followed up with oncology. He was given a diagnosis of hepatocellular carcinoma with extension into the portal vessels. He was started palliative chemotherapy. However he has been having worse abdominal distention. Interim ED he was hypotensive and tachycardic. His laboratory analysis showed similar liver function but he had elevated INR of 2.2 on Eliquis for his portal vein thrombosis and severe acute renal failure possibly secondary to hepatorenal syndrome. [facility] Medical History Atherosclerosis of coronary artery of [place] heart without angina pectoris Encounter for education Essential hypertension Former smoker Hepatitis C History of ST elevation myocardial infarction (STEMI) Ischemic cardiomyopathy Liver cancer Presence of stent in coronary artery (~02/18/17) Pure hypercholesterolemia STEMI (ST elevation myocardial infarction) Thrombocytopenia Wide-complex tachycardia Home Medications prednisolone acetate 1 % eye drops,suspension 1 drp EACH EYE DAILY Check with primary doctor 11/10/21 [History Last Taken Unknown] finasteride 5 mg tablet 5 mg PO DAILY #30 tabs 11/14/21 [Rx Last Taken Unknown] lactulose 20 gram/30 mL oral solution 20 g (30 mL) PO DAILY #1,500 mL 11/14/21 [Rx Last Taken Unknown] rifaximin 550 mg tablet (Xifaxan) 550 mg PO BID #60 tabs 11/22/21 [Rx Last Taken Unknown] furosemide 20 mg tablet 20 mg PO DAILY #90 tabs 12/01/21 [Rx Last Taken Unknown] pantoprazole 40 mg tablet,delayed release 40 mg PO DAILY #90 tabs 12/01/21 [Rx Last Taken Unknown] ursodiol 250 mg tablet 250 mg PO BID #60 tabs 12/13/21 [Rx Last Taken Unknown] Allergy/AdvReac Type Severity Reaction Status Date / Time No Known Allergies Allergy Verified 12/16/21 09:34 Family History Father Cancer Mother CVA (cerebral vascular accident) Brother Cancer Prostate Cancer Surgical History Presence of coronary angioplasty implant and graft (~02/18/17) Social History (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 Physical Exam Narrative GENERAL: Patient appears to be in some discomfort HEENT: Atraumatic; normocephalic EYES; Anicteric, Normal Conjunctiva NECK; supple, normal thyroid, RESPIRATORY: Diminished to auscultation CARDIOVASCULAR: Regular S1 S2, GI: Abdomen is distended : No Renal angle tenderness; EXTREMITIES: No edema, no clubbing, MUSCULOSKELETAL: no muscle wasting NEURO: Awake; no lateralizing signs. SKIN: No Rash PSYCH; Flat affect Lab / Micro Data Result Diagrams: 12/20/21 04:25 12/20/21 04:25 Labs: Laboratory Results - last 24 hr 12/19/21 16:35: Phosphorus 6.1 H, Magnesium 2.2, Albumin 2.3 L 12/19/21 18:10: POC Glucose 202 H 12/19/21 19:59: POC Glucose 102 12/19/21 22:00: Procalcitonin 0.78 H 12/19/21 22:00: Lactic Acid 2.8 H* 12/19/21 22:00: Sodium 139, Potassium 5.1, Chloride 107, Carbon Dioxide 18.0 L, Anion Gap 14, BUN 90 H, Creatinine 8.24 H*, Estim Creat Clear Calc 6.34, Est GFR (MDRD) Af Amer 8 L, Est GFR (MDRD) Non-Af 7 L, BUN/Creatinine Ratio 10.9, Glucose 86, Calcium 9.0 12/20/21 04:25: WBC 5.6, RBC 4.45 L, Hgb 10.9 L, Hct 34.3 L, MCV 77.1 L, MCH 24.5 L, MCHC 31.8 L, RDW Std Deviation 52.9 H, RDW Coeff of [place] 20.7 H, Plt Count 129 L, Immature Gran % (Auto) 0.500, Neut % (Auto) 63.4, Lymph % (Auto) 20.0, [place] % (Auto) 12.3 H, Eos % (Auto) 2.5, Baso % (Auto) 1.3 H, Absolute Neuts (auto) 3.6, Absolute Lymphs (auto) 1.12, Nucleated RBC % 1.8, Differential Comment SCANNED, Polychromasia RARE, Anisocytosis 2+, Microcytosis 1+, Macrocytosis 1+, Target Cells RARE, Ovalocytes RARE 12/20/21 04:25: Sodium 141, Potassium 4.8, Chloride 109 H, Carbon Dioxide 16.0 L, Anion Gap 16 H, BUN 80 H, Creatinine 7.73 H*, Estim Creat Clear Calc 6.76, Est GFR (MDRD) Af Amer 9 L, Est GFR (MDRD) Non-Af 7 L, BUN/Creatinine Ratio 10.3, Glucose 67 L, Calcium 8.6, Total Bilirubin 2.50 H, AST 167 H, ALT 68 H, Alkaline Phosphatase 68, Total Protein 6.0 L, Albumin 3.0 L, Globulin 3.0, Albumin/Globulin Ratio 1.0 12/20/21 04:30: Ur Random Sodium 13, Urine Creatinine 292.00 12/20/21 06:17: POC Glucose 144 H Radiology Impression Abdomen CT 12/19/21 16:23 IMPRESSION: (NOT LISTED IN ORDER OF SIGNIFICANCE) There are multiple lesions noted in the liver which are likely related to metastatic disease. Ascites. Other findings as above. Electronically Signed: Kory Soria MD at 18:59 EDT Reading Location ID and State: [facility] / [place] , Service support , Chest X-Ray 12/19/21 18:25 IMPRESSION: There are no acute findings. Electronically Signed: Kory Soria MD at 18:49 EDT , Charges/Coding Visit Charges Inpatient E&M: 23651 Init Hosp L2
[2021-12-19] MEDS: Midodrine HCl 5 MG Tablet 10 MG PO (23:01)
[2021-12-19] MEDS: Ursodiol 250 MG Tablet PO (23:02)
[2021-12-19] MEDS: Atorvastatin Calcium 40 MG Tablet PO (23:02)
[2021-12-19] MEDS: rifAXIMin 550 MG Tablet PO (23:03)
[2021-12-19 23:16] LABS: Lactic Acid 2.8 mmol/L (0.4-1.9)
[2021-12-20] VITALS (24 sets, daily range): BP systolic 56–89; BP diastolic 44–63; PULSE 56–110; RESP 11–27; TEMP 36.8–37.2; O2SAT 82–94
[2021-12-20] MEDS: Albumin Human 25% (100 mL) 25 GM/100 ML BAG IV ×3 (00:15→11:16)
[2021-12-20 01:21] LABS: Procalcitonin 0.78 ng/mL (0.00-0.09)
--- NOTE | 2021-12-20 01:37 | PCM.HOSP.N ---
Hospitalist Note Patient BP MAP < 65, will administer IVF additional boluses. Patient currently speaking with son, noting to him he is going to and that he has accepted this. Contacted patient's daughter as well to present to the ICU to be with him given his current status.
[2021-12-20] MEDS: 0.9% Normal Saline 1,000 ML 999 ML IV ×2 (01:47→02:48)
[2021-12-20] MEDS: fentaNYL 100 MCG/2 ML Ampul 25 MCG IV ×2 (04:19→13:18)
[2021-12-20 04:47] LABS: Absolute Lymphocyte Count 1.12 X10^3/uL (0.83-4.51); Absolute Neutrophil Count 3.6 X10^3/uL (2.0-7.7); Basophil# 0.07 X10^3/uL; Basophil% 1.3 % (0-1); Eosinophil# 0.14 X10^3/uL; Eosinophils% 2.5 % (0-5); Hematocrit 34.3 % (40-54); Hemoglobin 10.9 g/dL (13.0-16.5); Lymphocyte # 1.12 X10^3/ul (0.83-4.51); Mean Corp Hgb Conc 31.8 g/dL (32-36); Mean Corpuscular Hgb 24.5 pg (27.0-32.0); Mean Corpuscular Volume 77.1 fL (80-94); Monocyte# 0.69 X10^3/uL; Monocyte% 12.3 % (0-10); NRBC Flagged by Analyzer 1.8 % (0-5); Neutrophil # 3.55 X10^3/uL (2.7-7.7); Neutrophil % 63.4 % (47-70); POSITIVE MORPHOLOGY YES; Platelet Count 129 K/mm3 (150-450); RBC Distribution Width CV 20.7 % (11.6-14.6); RBC Distribution Width SD 52.9 fl (35.1-43.9); Red Blood Count 4.45 M/mm3 (4.6-6.2); White Blood Count 5.6 K/mm3 (4.4-11.0)
[2021-12-20 04:53] LABS: Differential Indicated SCAN CRITERIA MET
[2021-12-20 05:01] LABS: Urine Sodium 13 mmol/L (Not Establ.)
[2021-12-20 05:22] LABS: AST(SGOT) 167 U/L (15-37); Alanine Aminotransfer ALT/SGPT 68 U/L (16-61); Alkaline Phosphatase 68 U/L (45-117); Anion Gap 16 (5-15); BUN 80 mg/dL (7-18); BUN/Creat Ratio 10.3 RATIO (10-20); Calcium,Total 8.6 mg/dL (8.5-10.1); Chloride 109 mmol/L (98-107); Creatinine, Serum 7.73 mg/dL (0.70-1.30); EST Glomerular Filtration Rate 7 mL/min (>60); Est Glom Filt Rate - Afr Amer 9 mL/min (>60); Estimated Creatinine Clearance 6.76 ml/min; Glucose 67 mg/dL (74-106); Potassium 4.8 mmol/L (3.5-5.1); Sodium Level 141 mmol/L (136-145)
[2021-12-20 05:48] LABS: Differential Comment SCANNED
[2021-12-20 05:49] LABS: Anisocytosis 2+; Macrocytosis 1+; Microcytosis 1+; Ovalocyte RARE; Target Cells RARE
[2021-12-20 05:50] LABS: Polychromasia RARE
[2021-12-20] MEDS: 0.9% Normal Saline 1,000 ML 125 ML IV (05:51)
[2021-12-20] MEDS: Dextrose 50%-Water 25 GM/50 ML DISP.SYRIN IV (05:52)
--- NOTE | 2021-12-20 06:25 | CON.PCM.CC_ITS ---
Assessment & Plan Assessment/Plan (1) Hepatocellular carcinoma: PLAN: Plan RECOMMENDATIONS: 1. No additional supplemental IV fluids. 2. Continue empiric antimicrobials along with albumin and octreotide as ordered. 3. Continue midodrine. 4. Wean supplemental oxygen to maintain saturations at or above 90%. 5. Continue to hold Eliquis for now. 6. Recommend goals of care discussion. IMPRESSIONS: 1. Distributive shock/relative intravascular volume depletion The patient presented to the hospital with abdominal discomfort, nausea and gene ral failure to thrive in the setting of a recently diagnosed hepatocellular carcinoma. While in the infectious etiology like SBP is a possibility, I do suspect that his presenting symptoms and vital sign perturbations are likely secondary to his underlying malignancy and associated hypoalbuminemia. Unfortunately, the patient has third spaced a great deal of the fluid that has been provided to him. His hemodynamic status remains tenuous. The patient does not seem overtly interested in any heroic or aggressive interventions. Although a therapeutic paracentesis was being planned, the patient reported that he is not interested in undergoing the procedure. For now, we will plan to continue supportive measures including midodrine, octreotide and albumin. I would strongly recommend a family meeting to discuss goals of care. The patient seems uncomfortable and is in pain. I would advocate for the initiation of comfort care measures. 2. Acute kidney injury Most likely secondary to hepatorenal syndrome with intravascular volume depletion contributing. Plan to continue to monitor creatinine and urine output for now. The patient did receive supplemental IV fluids. However, he has a tendency to third space fluids, which is creating an issue from a respiratory perspective. Accordingly, I would recommend that continuous IV fluids be discontinued. 3. Hepatocellular carcinoma The patient was recently diagnosed and started on Keytruda. He was also noted to have a portal vein thrombosis, which has been managed with Eliquis. Plan to continue to hold his home diuretic regimen given his presenting hypotension. 4. Thrombocytopenia/hyperlipidemia/ischemic cardiomyopathy/GERD Complicates care, management, recovery and prognosis. Continue home medications as indicated. Update: I met with the patient and his son at the bedside this morning and had a very corby discussion regarding goals of care. The patient again does not seem very interested in pursuing any additional aggressive interventions or measures. Following a family discussion, the decision was made to transition to comfort care measures and placed referral to hospice care services. The patient's CODE STATUS was updated to DNR CC. CODE status: Discussed CODE status at length including difference between FULL code, DNR-CCA and DNR-CC status. Following discussions about the differences in these status, patient requested DNR-CC CODE STATUS. Advanced Care Planning Face to Face Time: 18 minutes This note was generated with [employer] dictation software. It may contain incorrect words, spelling, and punctuation that were not noted in checking the note before signing. HPI Consult Data Date of Consult: 12/20/21 HPI Narrative Reason for Consultation: Hypotension HPI Narrative: The patient is an 81-year-old male, with a history as outlined below, who presented to the emergency department on December 19 with abdominal distention, nausea and vomiting, along with decreased p.o. intake. The patient has a medical history significant for hepatocellular carcinoma, history of hepatitis C, ischemic cardiomyopathy, thrombocytopenia and former tobacco dependency. The patient was last seen by his oncologist approximately 1 week ago and was started on Keytruda. The patient was supposed to undergo an outpatient paracentesis ea stevie this week, however, the procedure was never performed as there was an inadequate amount of fluid present at the time of the ultrasound. On presentation to the emergency department, the patient was noted to have a temperature of 96.2 ?F. Blood pressure was noted to be 96/48 mmHg. Initial lab oratory evaluation revealed no evidence of a leukocytosis. Platelet count was low at 140,000. Chemistry profile was notable for a potassium of 7.0, bicarbonate of 19 and creatinine of 8.64. Lactate was elevated at 3.2. Total bili was increased at 2.2 with an AST of 266 and ALT of 102. CT abdomen demonstrated a small pericardial effusion along with multiple lesions in the liver and ascites. The patient was initially treated with supplemental IV fluids along with insulin, dextrose and calcium gluconate. Antibiotics were initiated empirically to cover for SBP. The patient has verbalized a desire not to have any invasive procedures performed including central venous catheter placement or initiation of vasopressor support. This morning, the patient has received a total of 4 L of supplemental IV fluids. He denies any abdominal pain but does report ongoing nausea. [facility] Medical History Atherosclerosis of coronary artery of [place] heart without angina pectoris Encounter for education Essential hypertension Former smoker Hepatitis C History of ST elevation myocardial infarction (STEMI) Ischemic cardiomyopathy Liver cancer Presence of stent in coronary artery (~02/18/17) Pure hypercholesterolemia STEMI (ST elevation myocardial infarction) Thrombocytopenia Wide-complex tachycardia Home Medications atorvastatin 40 mg tablet 40 mg PO QHS #90 tabs 09/20/21 [Rx Last Taken Unknown] carvedilol 3.125 mg tablet 3.125 mg PO BID bp 11/10/21 [History Last Taken Unknown] lisinopril 2.5 mg tablet 2.5 mg PO DAILY bp 11/10/21 [History Last Taken Unknown] prednisolone acetate 1 % eye drops,suspension 1 drp EACH EYE DAILY Check with primary doctor 11/10/21 [History Last Taken Unknown] apixaban 5 mg tablet (Eliquis) 5 mg PO BID #60 tabs 11/14/21 [Rx Last Taken Unknown] finasteride 5 mg tablet 5 mg PO DAILY #30 tabs 11/14/21 [Rx Last Taken Unknown] lactulose 20 gram/30 mL oral solution 20 g (30 mL) PO DAILY #1,500 mL 11/14/21 [ Rx Last Taken Unknown] rifaximin 550 mg tablet (Xifaxan) 550 mg PO BID #60 tabs 11/22/21 [Rx Last Taken Unknown] furosemide 20 mg tablet 20 mg PO DAILY #90 tabs 12/01/21 [Rx Last Taken Unknown] pantoprazole 40 mg tablet,delayed release 40 mg PO DAILY #90 tabs 12/01/21 [Rx Last Taken Unknown] spironolactone 25 mg tablet 25 mg PO DAILY #90 tabs 12/01/21 [Rx Last Taken Unknown] ursodiol 250 mg tablet 250 mg PO BID #60 tabs 12/13/21 [Rx Last Taken Unknown] Keytruda 12/19/21 [History Last Taken Unknown] Allergy/AdvReac Type Severity Reaction Status Date / Time No Known Allergies Allergy Verified 12/16/21 09:34 Family History Father Cancer Mother CVA (cerebral vascular accident) Brother Cancer Prostate Cancer Surgical History Presence of coronary angioplasty implant and graft (~02/18/17) Social History (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 Physical Exam Const alert Constitutional Narrative: Appears uncomfortable. General Appearance: cooperative and ill appearing HEENT normocephalic and head/scalp atraumatic Eyes PERRL, EOMs intact bilaterally and conjunctivae normal Neck supple General: trachea midline Chest inspection of chest normal Resp Auscultation: diminished lung sounds; Negative for rales, rhonchi or wheezes Cardio regular rate and regular rhythm GI soft to palpation and non-tender Inspection: abdominal distention Extremity General Extremity: edema bilateral lower extremity; Negative for clubbing Skin no rashes or lesions noted Neuro no focal motor deficits Psych Mood & Affect: flat affect Lab / Micro Data Result Diagrams: 12/20/21 04:25 12/20/21 04:25 Labs: Laboratory Results - last 24 hr 12/19/21 16:35: WBC 7.0, RBC 5.77, Hgb 14.0, Hct 44.1, MCV 76.4 L, MCH 24.3 L, MCHC 31.7 L, RDW Std Deviation 53.2 H, RDW Coeff of Nixon 21.5 H, Plt Count 148 L, Immature Gran % (Auto) 0.300, Neut % (Auto) 67.1, Lymph % (Auto) 18.3 L, [place] % (Auto) 11.6 H, Eos % (Auto) 1.7, Baso % (Auto) 1.0, Absolute Neuts (auto) 4.7, Absolute Lymphs (auto) 1.28, Nucleated RBC % 1.1, Differential Comment SCANNED, Anisocytosis 2+, Target Cells 2+ 12/19/21 16:35: PT 23.8 H, INR 2.2, APTT 45.0 H 12/19/21 16:35: Sodium 138, Potassium 7.0 H*, Chloride 104, Carbon Dioxide 19.0 L, Anion Gap 15, BUN 88 H, Creatinine 8.64 H*, Estim Creat Clear Calc 6.05, Est GFR (MDRD) Af Amer 8 L, Est GFR (MDRD) Non-Af 6 L, BUN/Creatinine Ratio 10.2, Glucose 101, Calcium 8.8, Total Bilirubin 2.20 H, AST 266 H, ALT 102 H, Alkaline Phosphatase 97, Total Protein 6.7, Albumin 2.2 L, Globulin 4.5 H, Albumin/Globulin Ratio 0.5 L, Lipase 260 12/19/21 16:35: Phosphorus 6.1 H, Magnesium 2.2, Albumin 2.3 L 12/19/21 16:50: Lactic Acid 3.2 H* 12/19/21 18:10: POC Glucose 202 H 12/19/21 19:59: POC Glucose 102 12/19/21 22:00: Procalcitonin 0.78 H 12/19/21 22:00: Lactic Acid 2.8 H* 12/19/21 22:00: Sodium 139, Potassium 5.1, Chloride 107, Carbon Dioxide 18.0 L, Anion Gap 14, BUN 90 H, Creatinine 8.24 H*, Estim Creat Clear Calc 6.34, Est GFR (MDRD) Af Amer 8 L, Est GFR (MDRD) Non-Af 7 L, BUN/Creatinine Ratio 10.9, Glucose 86, Calcium 9.0 12/20/21 04:25: WBC 5.6, RBC 4.45 L, Hgb 10.9 L, Hct 34.3 L, MCV 77.1 L, MCH 24.5 L, MCHC 31.8 L, RDW Std Deviation 52.9 H, RDW Coeff of Nixon 20.7 H, Plt Cou nt 129 L, Immature Gran % (Auto) 0.500, Neut % (Auto) 63.4, Lymph % (Auto) 20.0, [place] % (Auto) 12.3 H, Eos % (Auto) 2.5, Baso % (Auto) 1.3 H, Absolute Neuts (auto) 3.6, Absolute Lymphs (auto) 1.12, Nucleated RBC % 1.8, Differential Comment SCANNED, Polychromasia RARE, Anisocytosis 2+, Microcytosis 1+, Macrocytosis 1+, Target Cells RARE, Ovalocytes RARE 12/20/21 04:25: Sodium 141, Potassium 4.8, Chloride 109 H, Carbon Dioxide 16.0 L , Anion Gap 16 H, BUN 80 H, Creatinine 7.73 H*, Estim Creat Clear Calc 6.76, Est GFR (MDRD) Af Amer 9 L, Est GFR (MDRD) Non-Af 7 L, BUN/Creatinine Ratio 10.3, Glucose 67 L, Calcium 8.6, Total Bilirubin 2.50 H, AST 167 H, ALT 68 H, Alkaline Phosphatase 68, Total Protein 6.0 L, Albumin 3.0 L, Globulin 3.0, Albumin/Globulin Ratio 1.0 12/20/21 04:30: Ur Random Sodium 13, Urine Creatinine 292.[address] 12/19/21 16:23 IMPRESSION: (NOT LISTED IN ORDER OF SIGNIFICANCE) There are multiple lesions noted in the liver which are likely related to metastatic disease. Ascites. Other findings as above. Electronically Signed: Kory Soria MD at 18:59 EDT , Chest X-Ray 12/19/21 18:25 IMPRESSION: There are no acute findings. Electronically Signed: Kory Soria MD at 18:49 EDT , Charges/Coding Visit Charges Inpatient E&M: 97338 Init Hosp L3 Procedures Hospitalists Procedures: 97869 Advncd Care Plan 30 Min
[2021-12-20 06:36] LABS: Bedside Glucose 144 mg/dL (74-106)
--- NOTE | 2021-12-20 07:18 | PCM.PN.HOSP ---
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 who presented with abdominal pain and distention Objective Data Objective Data Vital Signs: Vital Signs Temp Pulse Resp BP Pulse Ox O2 Del Method O2 Flow Rate 98.5 F 96 16 89/56 L 93 Nasal Cannula 6 12/20/21 07:00 12/20/21 07:00 12/20/21 07:00 12/20/21 07:00 12/20/21 07:00 12/20/21 07:00 12/20/21 07:00 Oxygen Flow Rate (L/min) 6 Oxygen Delivery Method Nasal Cannula Weight: 78.5 kg Body Mass Index (BMI) 26.2 Intake & Output: Intake and Output for Last 24 Hours 12/18/21 12/19/21 12/20/21 23:59 23:59 23:59 Intake Total 2250.83 / 2418.33 3318.75 / 3318.75 Output Total 60 / 60 Balance 2250.83 / 2418.33 3258.75 / 3258.75 Lab / Micro Data Result Diagrams: 12/20/21 04:25 12/20/21 04:25 Labs: Laboratory Results - last 24 hr 12/19/21 16:35: WBC 7.0, RBC 5.77, Hgb 14.0, Hct 44.1, MCV 76.4 L, MCH 24.3 L, MCHC 31.7 L, RDW Std Deviation 53.2 H, RDW Coeff of Nixon 21.5 H, Plt Count 148 L, Immature Gran % (Auto) 0.300, Neut % (Auto) 67.1, Lymph % (Auto) 18.3 L, [place] % (Auto) 11.6 H, Eos % (Auto) 1.7, Baso % (Auto) 1.0, Absolute Neuts (auto) 4.7, Absolute Lymphs (auto) 1.28, Nucleated RBC % 1.1, Differential Comment SCANNED, Anisocytosis 2+, Target Cells 2+ 12/19/21 16:35: PT 23.8 H, INR 2.2, APTT 45.0 H 12/19/21 16:35: Sodium 138, Potassium 7.0 H*, Chloride 104, Carbon Dioxide 19.0 L, Anion Gap 15, BUN 88 H, Creatinine 8.64 H*, Estim Creat Clear Calc 6.05, Est GFR (MDRD) Af Amer 8 L, Est GFR (MDRD) Non-Af 6 L, BUN/Creatinine Ratio 10.2, Glucose 101, Calcium 8.8, Total Bilirubin 2.20 H, AST 266 H, ALT 102 H, Alkaline Phosphatase 97, Total Protein 6.7, Albumin 2.2 L, Globulin 4.5 H, Albumin/Globulin Ratio 0.5 L, Lipase 260 12/19/21 16:35: Phosphorus 6.1 H, Magnesium 2.2, Albumin 2.3 L 12/19/21 16:50: Lactic Acid 3.2 H* 12/19/21 18:10: POC Glucose 202 H 12/19/21 19:59: POC Glucose 102 12/19/21 22:00: Procalcitonin 0.78 H 12/19/21 22:00: Lactic Acid 2.8 H* 12/19/21 22:00: Sodium 139, Potassium 5.1, Chloride 107, Carbon Dioxide 18.0 L, Anion Gap 14, BUN 90 H, Creatinine 8.24 H*, Estim Creat Clear Calc 6.34, Est GFR (MDRD) Af Amer 8 L, Est GFR (MDRD) Non-Af 7 L, BUN/Creatinine Ratio 10.9, Glucose 86, Calcium 9.0 12/20/21 04:25: WBC 5.6, RBC 4.45 L, Hgb 10.9 L, Hct 34.3 L, MCV 77.1 L, MCH 24.5 L, MCHC 31.8 L, RDW Std Deviation 52.9 H, RDW Coeff of Nixon 20.7 H, Plt Count 129 L, Immature Gran % (Auto) 0.500, Neut % (Auto) 63.4, Lymph % (Auto) 20.0, [place] % (Auto) 12.3 H, Eos % (Auto) 2.5, Baso % (Auto) 1.3 H, Absolute Neuts (auto) 3.6, Absolute Lymphs (auto) 1.12, Nucleated RBC % 1.8, Differential Comment SCANNED, Polychromasia RARE, Anisocytosis 2+, Microcytosis 1+, Macrocytosis 1+, Target Cells RARE, Ovalocytes RARE 12/20/21 04:25: Sodium 141, Potassium 4.8, Chloride 109 H, Carbon Dioxide 16.0 L, Anion Gap 16 H, BUN 80 H, Creatinine 7.73 H*, Estim Creat Clear Calc 6.76, Est GFR (MDRD) Af Amer 9 L, Est GFR (MDRD) Non-Af 7 L, BUN/Creatinine Ratio 10.3, Glucose 67 L, Calcium 8.6, Total Bilirubin 2.50 H, AST 167 H, ALT 68 H, Alkaline Phosphatase 68, Total Protein 6.0 L, Albumin 3.0 L, Globulin 3.0, Albumin/Globulin Ratio 1.0 12/20/21 04:30: Ur Random Sodium 13, Urine Creatinine 292.00 12/20/21 06:17: POC Glucose 144 H Radiography Diagnostic Testing: Radiology Impression Abdomen CT 12/19/21 16:23 IMPRESSION: (NOT LISTED IN ORDER OF SIGNIFICANCE) There are multiple lesions noted in the liver which are likely related to metastatic disease. Ascites. Other findings as above. Electronically Signed: Kory Soria MD at 18:59 EDT , Chest X-Ray 12/19/21 18:25 IMPRESSION: There are no acute findings. Electronically Signed: Kory Soria MD at 18:49 EDT , Physical Exam Narrative GENERAL: Patient appears to be in some discomfort HEENT: Atraumatic; normocephalic EYES; Anicteric, Normal Conjunctiva NECK; supple, normal thyroid, RESPIRATORY: Diminished to auscultation CARDIOVASCULAR: Regular S1 S2, GI: Abdomen is distended : No Renal angle tenderness; EXTREMITIES: No edema, no clubbing, MUSCULOSKELETAL: no muscle wasting NEURO: Awake; no lateralizing signs. 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 Abdominal pain and distention ? CT of the abdomen obtained demonstrated significant ascites as well as multiple lesions in the liver consistent with metastatic disease. Plan is for patient to undergo ultrasound-guided paracentesis pending discussion with patient's family 2. Acute kidney injury ? Multifactorial including suspected hepatorenal syndrome as well as dehydration as well as recent chemo i.e. Keytruda. Patient is on IV fluid with monitoring of electrolyte. Consult placed to nephrology 3. Hepatocellular carcinoma ? This is based on clinical diagnosis patient had apparently declined biopsy as outpatient. Patient is followed by Dr. Mora. Patient did receive Keytruda as outpatient 4. Left portal vein thrombosis ? May be contributing to patient's abdominal pain. Patient is on Eliquis 5. Thrombocytopenia ? Monitoring with daily counts 6. Metabolic acidosis ? Related to patient impaired kidney function 7. Coronary artery disease ? With previous non-STEMI and subsequent PCI 8. Essential hypertension ? Patient antihypertensives on hold in view of relatively low blood pressure 9. Dyslipidemia ? Patient is on atorvastatin 10. BPH ? Patient is on finasteride 11. DVT prophylaxis ? Patient was on Eliquis which is currently being held in anticipation of his paracentesis Charges/Coding Visit Charges Inpatient E&M: 42942 Subs Hosp L3
[2021-12-20] MEDS: Midodrine HCl 5 MG Tablet 10 MG PO ×2 (08:01→12:33)
[2021-12-20] MEDS: Ondansetron 4 MG/2 ML Vial IV (08:07)
[2021-12-20] MEDS: 0.9% Saline Lock 10 ML Syringe IV (08:07)
--- NOTE | 2021-12-20 10:30 | CASEMGMT ---
Addendum entered by Zamzam Humphreys 12/20/21 15:42: funeral workers Met with Yasmeen Petersen from Hospice. Yasmeen Petersen discussed that family has signed for Hospice. Pt is being assessed for IPU. SW gave referral information to Yasmeen Petersen in person, as fax failed several times this day. PLAN: Hospice IPU, pending acceptance Addendum entered by Zamzam Humphreys 12/20/21 13:31: Fax continues to error. XU faxed referral from ICU floor this time. Called Kemi after to inform pt daughter will need to leave for work at 3pm and inquired if Kemi could have someone to meet with family before then. Kemi stated would call pt daughter to set up time. SW provided contact number for pt daughter. Kemi to discuss with family IPU vs. Home with hospice. Family updated to expect call from Hospice shortly. Family voiced understanding. DEVON Cuenca Addendum entered by Zamzam Humphreys 12/20/21 11:37: XU called Kemi at Hospice to check on referral. Kemi has not received. Immediately after hanging up printer printed error for fax. SW re-faxed referral at this time. Original Note: Social Work SW sent referral to [facility] after being informed by RNCM, Aurora George, that pt has decided to sign. XU requested a phone call on fax cover sheet when fax is received, to confirm. PLAN: Await [facility]ops[facility] to call and set up appointment to see pt. DEVON Cuenca
--- NOTE | 2021-12-20 12:39 | US_ITS ---
STUDY: ABDOMINAL ULTRASOUND - ascites assessment. REASON FOR VISIT: Male, 81 years old ascites TECHNIQUE: Ultrasound evaluation of the 4 quadrants was performed with real-time and static porter-scale imaging. TECHNICAL QUALITY: Adequate. COMPARISON: Comparison is made with prior study dated 12/17/2021. FINDINGS: A small amount of fluid is seen in the right lower quadrant and right upper quadrant. The patient went on hospice and the paracentesis was canceled. US/Abdomen Limited IMPRESSION: Small amount of ascites. Electronically Signed: Oleg Leon MD at 10:01 EDT ,
--- NOTE | 2021-12-20 14:05 | PCM.DC.SUM ---
Providers Date of Admission: 12/19/21 Date of Discharge: 12/20/21 Primary Care Physician: Dr. Doe Suárez MD Consultations 12/19/21 21:29 Consult: Gastroenterology Routine Consulting Provider: [facility] Reason for Consult: Hepatocellular carc, Possible SBP, Possible Hepatorenal EMERGENT Consult: No Notified: Yes Date Notified: 12/19/21 Time Notified: 19:53 Method of Notification: Text Consult: Pile Driving Superintendent / Pulmonary Medicine Routine Consulting Provider: Bereket Avendano Reason for Consult: MARKEL, HyperK, Hypotension, Possible SBP EMERGENT Consult: No Notified: Yes Date Notified: 12/19/21 Time Notified: 19:44 Method of Notification: Text Consult: Nephrology Routine Consulting Provider: Irene Martinez Reason for Consult: MARKEL, possible hepatorenal EMERGENT Consult: No Notified: Yes Date Notified: 12/19/21 Time Notified: 19:45 Method of Notification: Text Consult: Oncology/Hematology Routine Consulting Provider: [facility]) Reason for Consult: Hepatocell CA, c/o ? SBP, ? Hepatorenal EMERGENT Consult: No Notified: Yes Date Notified: 12/19/21 Time Notified: 19:57 Method of Notification: Text 12/20/21 11:36 Consult: Hospice / Palliative Care Routine Consulting Provider: [facility] Reason for Consult: End-of-life EMERGENT Consult: No Notified: Yes Date Notified: 12/20/21 Time Notified: 11:36 Method of Notification: Verbal Comments:: social work notified Reason For Visit: ? SEP, MARKEL, HYPERKALEMIA, ?HEATORENAL Diagnosis Discharge Diagnosis (1) Hepatocellular carcinoma: Status: Acute Code(s): C22.0 - Liver cell carcinoma Plan Patient is an 81-year-old gentleman with history of hepatocellular carcinoma with tumor thrombosis of the left portal vein who presented with abdominal pain and distention 1. Abdominal pain and distention ? CT of the abdomen obtained demonstrated significant ascites as well as multiple lesions in the liver consistent with metastatic disease. Plan is for patient to undergo ultrasound-guided paracentesis pending discussion with patient's family ? Decision was made to change patient CODE STATUS to DNR comfort care after discussion with the family plan for paracentesis discontinued consult placed to the hospice/palliative care service 2. Acute kidney injury ? Multifactorial including suspected hepatorenal syndrome as well as dehydration as well as recent chemo i.e. Keytruda. Patient is on IV fluid with monitoring of electrolyte. Consult placed to nephrology 3. Hepatocellular carcinoma ? This is based on clinical diagnosis patient had apparently declined biopsy as outpatient. Patient is followed by Dr. Mora. Patient did receive Keytruda as outpatient 4. Left portal vein thrombosis ? May be contributing to patient's abdominal pain. Patient is on Eliquis 5. Thrombocytopenia ? Monitoring with daily counts 6. Metabolic acidosis ? Related to patient impaired kidney function 7. Coronary artery disease ? With previous non-STEMI and subsequent PCI 8. Essential hypertension ? Patient antihypertensives on hold in view of relatively low blood pressure 9. Dyslipidemia ? Patient is on atorvastatin 10. BPH ? Patient is on finasteride 11. DVT prophylaxis ? Patient was on Eliquis which is currently being held in anticipation of his paracentesis Medications at Discharge Home Medications prednisolone acetate 1 % eye drops,suspension 1 drp EACH EYE DAILY Check with primary doctor 11/10/21 finasteride 5 mg tablet 5 mg PO DAILY #30 tabs 11/14/21 lactulose 20 gram/30 mL oral solution 20 g (30 mL) PO DAILY #1,500 mL 11/14/21 rifaximin 550 mg tablet (Xifaxan) 550 mg PO BID #60 tabs 11/22/21 furosemide 20 mg tablet 20 mg PO DAILY #90 tabs 12/01/21 pantoprazole 40 mg tablet,delayed release 40 mg PO DAILY #90 tabs 12/01/21 ursodiol 250 mg tablet 250 mg PO BID #60 tabs 12/13/21 Hospital Course Summary of Care Provided Minutes Spent on Discharge: 45 Weight / BMI Weight Weight: 70 kg Body Mass Index (BMI) 26.2 ABG / Lab / Microbiology Data Result Diagrams: 12/20/21 04:25 12/20/21 04:25 Laboratory: Laboratory Results - last 24 hr 12/19/21 16:35: WBC 7.0, RBC 5.77, Hgb 14.0, Hct 44.1, MCV 76.4 L, MCH 24.3 L, MCHC 31.7 L, RDW Std Deviation 53.2 H, RDW Coeff of Nixon 21.5 H, Plt Count 148 L, Immature Gran % (Auto) 0.300, Neut % (Auto) 67.1, Lymph % (Auto) 18.3 L, Frio % (Auto) 11.6 H, Eos % (Auto) 1.7, Baso % (Auto) 1.0, Absolute Neuts (auto) 4.7, Absolute Lymphs (auto) 1.28, Nucleated RBC % 1.1, Differential Comment SCANNED, Anisocytosis 2+, Target Cells 2+ 12/19/21 16:35: PT 23.8 H, INR 2.2, APTT 45.0 H 12/19/21 16:35: Sodium 138, Potassium 7.0 H*, Chloride 104, Carbon Dioxide 19.0 L, Anion Gap 15, BUN 88 H, Creatinine 8.64 H*, Estim Creat Clear Calc 6.05, Est GFR (MDRD) Af Amer 8 L, Est GFR (MDRD) Non-Af 6 L, BUN/Creatinine Ratio 10.2, Glucose 101, Calcium 8.8, Total Bilirubin 2.20 H, AST 266 H, ALT 102 H, Alkaline Phosphatase 97, Total Protein 6.7, Albumin 2.2 L, Globulin 4.5 H, Albumin/Globulin Ratio 0.5 L, Lipase 260 12/19/21 16:35: Phosphorus 6.1 H, Magnesium 2.2, Albumin 2.3 L 12/19/21 16:50: Lactic Acid 3.2 H* 12/19/21 18:10: POC Glucose 202 H 12/19/21 19:59: POC Glucose 102 12/19/21 22:00: Procalcitonin 0.78 H 12/19/21 22:00: Lactic Acid 2.8 H* 12/19/21 22:00: Sodium 139, Potassium 5.1, Chloride 107, Carbon Dioxide 18.0 L, Anion Gap 14, BUN 90 H, Creatinine 8.24 H*, Estim Creat Clear Calc 6.34, Est GFR (MDRD) Af Amer 8 L, Est GFR (MDRD) Non-Af 7 L, BUN/Creatinine Ratio 10.9, Glucose 86, Calcium 9.0 12/20/21 04:25: WBC 5.6, RBC 4.45 L, Hgb 10.9 L, Hct 34.3 L, MCV 77.1 L, MCH 24.5 L, MCHC 31.8 L, RDW Std Deviation 52.9 H, RDW Coeff of Nixon 20.7 H, Plt Count 129 L, Immature Gran % (Auto) 0.500, Neut % (Auto) 63.4, Lymph % (Auto) 20.0, Frio % (Auto) 12.3 H, Eos % (Auto) 2.5, Baso % (Auto) 1.3 H, Absolute Neuts (auto) 3.6, Absolute Lymphs (auto) 1.12, Nucleated RBC % 1.8, Differential Comment SCANNED, Polychromasia RARE, Anisocytosis 2+, Microcytosis 1+, Macrocytosis 1+, Target Cells RARE, Ovalocytes RARE 12/20/21 04:25: Sodium 141, Potassium 4.8, Chloride 109 H, Carbon Dioxide 16.0 L, Anion Gap 16 H, BUN 80 H, Creatinine 7.73 H*, Estim Creat Clear Calc 6.76, Est GFR (MDRD) Af Amer 9 L, Est GFR (MDRD) Non-Af 7 L, BUN/Creatinine Ratio 10.3, Glucose 67 L, Calcium 8.6, Total Bilirubin 2.50 H, AST 167 H, ALT 68 H, Alkaline Phosphatase 68, Total Protein 6.0 L, Albumin 3.0 L, Globulin 3.0, Albumin/Globulin Ratio 1.0 12/20/21 04:30: Ur Random Sodium 13, Urine Creatinine 292.00 12/20/21 06:17: POC Glucose 144 H Radiography Diagnostic Testing: Radiology Impression Abdomen CT 12/19/21 16:23 IMPRESSION: (NOT LISTED IN ORDER OF SIGNIFICANCE) There are multiple lesions noted in the liver which are likely related to metastatic disease. Ascites. Other findings as above. Electronically Signed: Kory Soria MD at 18:59 EDT , Chest X-Ray 12/19/21 18:25 IMPRESSION: There are no acute findings. Electronically Signed: Kory Soria MD at 18:49 EDT , D/C Instructions Discharge Diet: No restrictions Meaningful Use Info Meaningful Use Diagnoses (Choose all that apply): None applicable Discharge Plan Admission Admit Date/Time: 12/19/21 19:43 Attending Provider: Jayjay Alberts Primary Care Provider: Doe Suárez Consulting Providers: Bereket Avendano ; Jayjay Gant ; Dharmesh Mora ; Terry Beasley ; Jagjit Rios ; Thang Valderrama ; Davey Waller ; Mukul Hearn ; Padmini Mcelroy COMBINATION WELDER APPRENTICE ; Fartun Brady ; Dinorah Day ; Jayjay Macedo ; Silvia Reza ; Mouna Hernandez ; Joselyn Shields COMBINATION WELDER APPRENTICE Discharge Orders/Prescriptions Prescriptions: Continued Xifaxan 550 mg tablet 550 mg PO BID Qty: 60 11RF prednisolone acetate 1 DROP drops,suspension 1 drp EACH EYE DAILY finasteride 5 mg tablet 5 mg PO DAILY Qty: 30 2RF lactulose 20 gram/30 mL solution 20 g PO DAILY Qty: 1500 0RF pantoprazole 40 mg tablet,delayed release (DR/EC) 40 mg PO DAILY Qty: 90 3RF furosemide 20 mg tablet 20 mg PO DAILY Qty: 90 3RF Hold Instructions: Low BP ursodiol 250 mg tablet 250 mg PO BID Qty: 60 2RF Discontinued carvedilol 3.125 mg tablet 3.125 mg PO BID lisinopril 2.5 mg tablet 2.5 mg PO DAILY Eliquis 5 mg Tablet 5 mg PO BID Qty: 60 1RF Keytruda atorvastatin 40 mg tablet 40 mg PO QHS Qty: 90 3RF spironolactone 25 mg tablet 25 mg PO DAILY Qty: 90 3RF Hold Instructions: Low BP Referrals / Follow Up: Doe Suárez MD [Primary Care Provider] - Disposition Disposition (needs filled in before D/C Order can be placed): Hospice in Medical Facility Charges/Coding Visit Charges Inpatient E&M: 93256 Disch Hosp
--- NOTE | 2021-12-20 14:24 | CHAPLAIN ---
Type of Pastoral Visit _x__ Initial Visit ___ Follow-up Visit ___ On-call Visit ___ General Patient Visit ___ Spiritual Assessment ___ Family Conference ___ Bereavement ___ Rapid Response ___ Code Blue ___ Other (describe below) Pastoral Care Referral From ___ Patient _x__ Family ___ Nurse ___ Physician ___ Glass Cutting Machine Feeder ___ Water Filtration Technician ___ Other (describe below) Sacrament/Intervention _x__ Active listening ___ Anointing ___ Confucianism ___ Bereavement ___ Communion ___ Bhavna exploration ___ ___ Life review _x__ Prayer ___ Reconciliation ___ Sacrament of Sick _x__ Supportive presence ___ Wedding ___ Other (describe below) Pastoral Comments patient was resting in the bed with daughter in the room; pt easily awakes; pt does answer questions with one or two word answers but does not engage in conversation; pt voice is almost monotone; this washateria attendant acknowledges hospice consult and asks pt and family about feelings on this; pt states that he is okay with hospice; asked about worries or concerns and the patient says he has none; pt is not active in a bhavna community; daughter states it would be fine to pray but that patient/father has a private bhavna; later spoke with son who was in hallway; son states that he would like patient/father to have spiritual care support but that also understands that pt's bhavna in personal and private to him; pt did agree for this washateria attendant to say a prayer for him
--- NOTE | 2021-12-20 17:33 | ONC.CONSULT ---
Assessment & Plan Assessment/Plan (1) Hepatocellular carcinoma: Status: Acute Code(s): C22.0 - Liver cell carcinoma Plan: Renal failure may be due Hepatorenal syndrome, dehydration or Keytruda induced. Prognosis is poor. Suggest Supportive care. HPI Consult Data Date of Service:: 12/20/21 PCP / Referring Provider: Dr. Doe Suárez MD Attending: Dr. Jayjay Alberts MD Chief Complaint Chief Complaint: Asked to see Pt for Hepatoma. History of Present Illness History of Present Illness: 81y/o. diagnosed with Hepatoma, received first of Keytruda last week is admitted with abdominal pain and admitted to [facility] found to have worsening of renal failure. Saw him this morning at bedside. Advanced Directives Power of Locomotive Switch Operator: No Living Will: No [facility] Medical History Atherosclerosis of coronary artery of [place] heart without angina pectoris Encounter for education Essential hypertension Former smoker Hepatitis C History of ST elevation myocardial infarction (STEMI) Ischemic cardiomyopathy Liver cancer Presence of stent in coronary artery (~02/18/17) Pure hypercholesterolemia STEMI (ST elevation myocardial infarction) Thrombocytopenia Wide-complex tachycardia Home Medications prednisolone acetate 1 % eye drops,suspension 1 drp EACH EYE DAILY Check with primary doctor 11/10/21 [History Last Taken Unknown] finasteride 5 mg tablet 5 mg PO DAILY #30 tabs 11/14/21 [Rx Last Taken Unknown] lactulose 20 gram/30 mL oral solution 20 g (30 mL) PO DAILY #1,500 mL 11/14/21 [Rx Last Taken Unknown] rifaximin 550 mg tablet (Xifaxan) 550 mg PO BID #60 tabs 11/22/21 [Rx Last Taken Unknown] furosemide 20 mg tablet 20 mg PO DAILY #90 tabs 12/01/21 [Rx Last Taken Unknown] pantoprazole 40 mg tablet,delayed release 40 mg PO DAILY #90 tabs 12/01/21 [Rx Last Taken Unknown] ursodiol 250 mg tablet 250 mg PO BID #60 tabs 12/13/21 [Rx Last Taken Unknown] Allergy/AdvReac Type Severity Reaction Status Date / Time No Known Allergies Allergy Verified 12/16/21 09:34 Family History (Reviewed 12/16/21 @ 09:28 by Mita Hart TRANSCRIBING MACHINE MECHANIC, TRANSCRIBING MACHINE MECHANIC-C) Father Cancer Mother CVA (cerebral vascular accident) Brother Cancer Prostate Cancer Surgical History Presence of coronary angioplasty implant and graft (~02/18/17) Social History (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) household members: none Smoking Status: Former smoker how long ago did patient quit smokin alcohol intake: current alcohol intake frequency: a few times a month Alcohol type: beer and wine substance use type: does not use caffeine: Yes Type: coffee Number of servings: 2 what type of physical activity do you participate in: none seatbelt use: always do you feel safe at home: Yes ROS Constitutional Constitutional: Reports fatigue and poor appetite ENT HEENT: Reports loss taste/smell Cardiovascular Cardiovascular: Denies chest pain Respiratory/Chest Respiratory/Chest: Reports dyspnea on exertion Gastrointestinal Gastrointestinal: Reports abdominal pain and anorexia Musculoskeletal Musculoskeletal: Reports muscle weakness Integumentary Integumentary: Denies changing lesions Neurologic Neurologic: Reports dizziness Physical Exam Narrative Elderly man Const alert HEENT normocephalic Eyes no scleral icterus Neck no lymphadenopathy Lymph Lymphatic: no lymphadenopathy noted Chest inspection of chest normal Resp normal respiratory effort and clear to auscultation bilaterally Cardio regular rate, S1 normal heart sound and S2 normal heart sound GI GI Narrative: distension, soft Extremity Extremity Narrative: +edema Vital Signs Temperature 98.5 F 12/20/21 16:00 Temperature Source Core 12/20/21 16:00 Pulse Rate 63 12/20/21 17:00 Pulse Strength Weak (1+) 12/19/21 22:00 Respiratory Rate 20 H 12/20/21 17:00 Respiratory Effort Non-Labored 12/20/21 16:58 Respiratory Depth Normal 12/20/21 16:58 Respiratory Pattern Normal 12/20/21 16:58 Blood Pressure 56/44 L 12/20/21 17:00 Blood Pressure Mean 48 12/20/21 17:00 Blood Pressure Source Monitor 12/20/21 17:00 Blood Pressure Position Semi-Fowlers 12/20/21 17:00 Blood Pressure Location Right Arm 12/20/21 17:00 Pulse Ox 92 12/20/21 17:00 Oxygen Delivery Method Nasal Cannula 12/20/21 17:00 Oxygen Flow Rate (L/min) 6 12/20/21 17:00 Laboratory Results - last 24 hr 12/19/21 16:35: Differential Comment SCANNED, Anisocytosis 2+, Target Cells 2+ 12/19/21 16:35: Phosphorus 6.1 H, Magnesium 2.2, Albumin 2.3 L 12/19/21 18:10: POC Glucose 202 H 12/19/21 19:59: POC Glucose 102 12/19/21 22:00: Procalcitonin 0.78 H 12/19/21 22:00: Lactic Acid 2.8 H* 12/19/21 22:00: Sodium 139, Potassium 5.1, Chloride 107, Carbon Dioxide 18.0 L, Anion Gap 14, BUN 90 H, Creatinine 8.24 H*, Estim Creat Clear Calc 6.34, Est GFR (MDRD) Af Amer 8 L, Est GFR (MDRD) Non-Af 7 L, BUN/Creatinine Ratio 10.9, Glucose 86, Calcium 9.0 12/20/21 04:25: WBC 5.6, RBC 4.45 L, Hgb 10.9 L, Hct 34.3 L, MCV 77.1 L, MCH 24.5 L, MCHC 31.8 L, RDW Std Deviation 52.9 H, RDW Coeff of Nixon 20.7 H, Plt Count 129 L, Immature Gran % (Auto) 0.500, Neut % (Auto) 63.4, Lymph % (Auto) 20.0, Bland % (Auto) 12.3 H, Eos % (Auto) 2.5, Baso % (Auto) 1.3 H, Absolute Neuts (auto) 3.6, Absolute Lymphs (auto) 1.12, Nucleated RBC % 1.8, Differential Comment SCANNED, Polychromasia RARE, Anisocytosis 2+, Microcytosis 1+, Macrocytosis 1+, Target Cells RARE, Ovalocytes RARE 12/20/21 04:25: Sodium 141, Potassium 4.8, Chloride 109 H, Carbon Dioxide 16.0 L, Anion Gap 16 H, BUN 80 H, Creatinine 7.73 H*, Estim Creat Clear Calc 6.76, Est GFR (MDRD) Af Amer 9 L, Est GFR (MDRD) Non-Af 7 L, BUN/Creatinine Ratio 10.3, Glucose 67 L, Calcium 8.6, Total Bilirubin 2.50 H, AST 167 H, ALT 68 H, Alkaline Phosphatase 68, Total Protein 6.0 L, Albumin 3.0 L, Globulin 3.0, Albumin/Globulin Ratio 1.0 12/20/21 04:30: Ur Random Sodium 13, Urine Creatinine 292.00 12/20/21 06:17: POC Glucose 144 H Diagnostic Data Abdomen CT 12/19/21 16:23 IMPRESSION: (NOT LISTED IN ORDER OF SIGNIFICANCE) There are multiple lesions noted in the liver which are likely related to metastatic disease. Ascites. Other findings as above. Electronically Signed: Kory Soria MD at 18:59 EDT , Chest X-Ray 12/19/21 18:25 IMPRESSION: There are no acute findings. Electronically Signed: Kory Soria MD at 18:49 EDT , Charges/Coding Visit Charges Office Visits / Consults: [id number] IP Consult L3
--- NOTE | 2021-12-20 18:45 | NURSING ---
Patient left for hospice [facility] at 1845, family present.
== END 2021-12-20 18:45 | disposition hospice, inpatient (51) | DRG 441 ==
LOC: ED 19:50 → ICU 20:22
PROVIDERS: Admitting Provider Family Medicine; Emergency Provider Emergency Medicine; PCP Family Medicine; Visit Provider Internal Medicine
DX: K76.7 Hepatorenal syndrome (principal); R57.8 Other shock; I81 Portal vein thrombosis; K65.2 Spontaneous bacterial peritonitis; E87.20 Acidosis, unspecified; N17.9 Acute kidney failure, unspecified; C22.0 Liver cell carcinoma; R18.8 Other ascites; D69.6 Thrombocytopenia, unspecified; E88.09 Other disorders of plasma-protein metabolism, not elsewhere classified; I80.8 Phlebitis and thrombophlebitis of other sites; I95.9 Hypotension, unspecified; K74.60 Unspecified cirrhosis of liver; E78.00 Pure hypercholesterolemia, unspecified; I25.10 Atherosclerotic heart disease of native coronary artery without angina pectoris; E87.5 Hyperkalemia; I25.5 Ischemic cardiomyopathy; I10 Essential (primary) hypertension; E86.9 Volume depletion, unspecified; I25.2 Old myocardial infarction; K21.9 Gastro-esophageal reflux disease without esophagitis; E80.7 Disorder of bilirubin metabolism, unspecified; N40.0 Benign prostatic hyperplasia without lower urinary tract symptoms; R62.7 Adult failure to thrive; Z68.26 Body mass index [BMI] 26.0-26.9, adult; Z53.29 Procedure and treatment not carried out because of patient's decision for other reasons; Z66 Do not resuscitate; Z51.5 Encounter for palliative care; Z95.5 Presence of coronary angioplasty implant and graft; Z79.01 Long term (current) use of anticoagulants; Z79.899 Other long term (current) drug therapy; Z86.19 Personal history of other infectious and parasitic diseases; Z87.891 Personal history of nicotine dependence
CPT/HCPCS: 71046; 74176; 76705; 80048; 80053; 82040; 82570; 82962; 83605; 83690; 83735; 84100; 84145; 84300; 85025; 85610; 85730; 87040; 93005; 97802; 99285; J7030; J7050; P9047; A4216; J0610; J0696; J2405